=== PATIENT | female | born 1990 | race Caucasian/White ===

== ENCOUNTER 2020-08-23 07:43 | Outpatient (REF) | payer OTHER, SELFPAY ==
[2020-08-23 08:11] LABS: COVID-19 Test Negative (Negative); IDNOW Serial# 55D5AD1C
== END 2020-08-23 07:44 | disposition home or self-care (01) ==
LOC: HO.EMPCOV 07:43
PROVIDERS: Visit Provider Internal Medicine
DX: Z20.822 Contact with and (suspected) exposure to COVID-19 (principal)
CPT/HCPCS: 36415; 87635; C9803

== ENCOUNTER 2020-09-10 07:33 | Outpatient (REF) | payer OTHER, SELFPAY ==
[2020-09-10 08:21] LABS: COVID-19 Test Negative (Negative); IDNOW Serial# 55D5AD1C
== END 2020-09-10 07:34 | disposition home or self-care (01) ==
LOC: HO.LAB 07:33
PROVIDERS: Visit Provider Internal Medicine
DX: Z20.822 Contact with and (suspected) exposure to COVID-19 (principal)
CPT/HCPCS: 36415; 87635; C9803

== ENCOUNTER 2020-12-14 11:59 | Outpatient (REF) | payer OTHER, SELFPAY ==
[2020-12-15 13:51] LABS: H Pylori Breath Test NOT DETECTED (NOT DETECTED)
== END 2020-12-14 12:00 | disposition home or self-care (01) ==
LOC: HO.LNP 11:59
PROVIDERS: Visit Provider Internal Medicine Gastroenterology
DX: Z87.19 Personal history of other diseases of the digestive system (principal)
CPT/HCPCS: 83013

== ENCOUNTER 2020-12-21 12:03 | Outpatient (REF) | payer OTHER, SELFPAY ==
[2020-12-22 14:16] LABS: H Pylori Breath Test NOT DETECTED (NOT DETECTED)
== END 2020-12-21 12:04 | disposition home or self-care (01) ==
LOC: HO.LNP 12:03
PROVIDERS: Visit Provider Internal Medicine Gastroenterology
DX: Z87.19 Personal history of other diseases of the digestive system (principal)
CPT/HCPCS: 83013

== ENCOUNTER 2021-05-02 13:34 | Outpatient (REF) | payer OTHER, SELFPAY | END 2021-05-02 13:35 | disposition home or self-care (01) | LOC: HO.LAB 13:34 | PROVIDERS: PCP Internal Medicine; Visit Provider Internal Medicine Gastroenterology | DX: L20.9 Atopic dermatitis, unspecified (principal); L30.9 Dermatitis, unspecified | CPT/HCPCS: 36415; 82785; 86003 ==

== ENCOUNTER 2021-08-31 07:33 | Outpatient (REF) | payer OTHER, SELFPAY ==
[2021-08-31 08:16] LABS: MANUAL DIFF FLAG NO
[2021-08-31 08:44] LABS: Basophils Percent Auto 0.3 % (0-2); Eosinophils Absolute Auto 0.4 X10*3/uL (0.0-0.4); Eosinophils Percent Auto 4.9 % (0-4); Hematocrit 34.7 % (37.0-47.0); Hemoglobin 11.5 g/dl (12.0-16.0); Imm Gran Abs Auto 0.04 X10*3/uL (0.00-0.03); Imm Gran Pct Auto 0.5 % (0.0-0.4); Lymphocytes Absolute Auto 1.6 X10*3/uL (1.2-4.9); Lymphocytes Percent Auto 20.6 % (20-40); Mean Corpuscular HGB Conc 33.1 g/dl (31.0-35.0); Mean Corpuscular Hemoglobin 28.6 pg (27.0-33.0); Mean Corpuscular Volume 86.3 fL (80.0-98.0); Mean Platelet Volume 9.5 fL (9.4-12.3); Monocytes Absolute Auto 0.5 X10*3/uL (0.1-1.2); Monocytes Percent Auto 6.2 % (2-11); Neutrophils Absolute Auto 5.3 x10*3/uL (2.0-8.3); Neutrophils Percent Auto 67.5 % (45-73); Platelet Count 350 X10*3/uL (160-400); Red Blood Count 4.02 X10*6/uL (4.20-5.50); Red Cell Distribution Width 12.4 % (11.0-16.0); White Blood Count 7.8 X10*3/uL (4.8-10.8)
[2021-08-31 08:54] LABS: Estimated Average Glucose 94 mg/dL; Hemoglobin A1c % 4.9 %
[2021-08-31 09:04] LABS: Alanine Aminotransferase 34 U/L (0-31); Alkaline Phosphatase 64 U/L (39-117); Anion Gap 11 (12-20); Aspartate Amino Transferase 21 U/L (5-31); Bilirubin Total 0.4 mg/dL (0.0-1.0); Blood Urea Nitrogen 10 mg/dL (9-16); C Reactive Protein 0.68 mg/dL (< or = 0.50); Calcium 9.1 mg/dL (8.4-10.2); Carbon Dioxide 26 mmol/L (22-29); Chloride 107 mmol/L (96-108); Cholesterol 124 mg/dL; Estimated Glomerular Filt Rate > 60; Glucose Random 86 mg/dL (60-115); HDL Cholesterol 43 mg/dL; Iron 42 mcg/dL (30-160); LDL Cholesterol Calculated 68 mg/dl; Percent Iron Saturation 12 % (15-50); Potassium 4.5 mmol/L (3.3-5.1); Sodium 139 mmol/L (135-145); Total Iron Binding Capacity 343 mcg/dL (228-428); Triglycerides 69 mg/dL; Unsaturated Iron Binding 301 ug/dL
[2021-08-31 09:25] LABS: Ferritin 17 ng/mL (10-122); TSH reflex Free T4 0.97 uIU/mL (0.32-4.0); Vitamin D 25-OH Total 20.4 ng/mL (>30)
[2021-08-31 09:35] LABS: Folate 11.9 ng/mL (> or = 4.0); Vitamin B12 254 pg/mL (200-900)
[2021-08-31 11:32] LABS: Erythrocyte Sedimentation Rate 12 MM/HR (0-20)
[2021-09-01 14:25] LABS: Gliadin Deamidated IgA Ab <1.0 U/mL; Gliadin Deamidated IgG Ab <1.0 U/mL; Transglutaminase Ab IgG <1.0 U/mL; Transglutaminase IgA <1.0 U/mL
[2021-09-03 14:27] LABS: Zinc 64 mcg/dL (60-130)
[2021-09-03 18:01] LABS: IgA 155 mg/dL (47-310); IgG 1281 mg/dL (600-1640); IgM 50 mg/dL (50-300)
[2021-09-04 11:52] LABS: Vitamin B6 3.6 ng/mL (2.1-21.7)
[2021-09-05 19:02] LABS: Vitamin B5 (Pantothenic Acid) <40 ng/mL (<275)
[2021-09-05 20:02] LABS: Nicotinamide <20 ng/mL; Vit B3 - Nicotinic Acid <20 ng/mL
[2021-09-06 10:52] LABS: Vitamin A 58 mcg/dL (38-98)
== END 2021-08-31 07:34 | disposition home or self-care (01) ==
LOC: HO.LAB 07:33
PROVIDERS: PCP Internal Medicine; Visit Provider Internal Medicine Gastroenterology
DX: G89.29 Other chronic pain (principal); R10.33 Periumbilical pain; R19.8 Other specified symptoms and signs involving the digestive system and abdomen; K75.81 Nonalcoholic steatohepatitis (NASH)
CPT/HCPCS: 36415; 80053; 80061; 82306; 82607; 82728; 82746; 82784; 83036; 83540; 84207; 84443; 84590; 84591; 84630; 85025; 85652; 86140; 86258; 86364

== ENCOUNTER 2021-11-14 07:58 | Outpatient (REF) | payer OTHER, SELFPAY ==
--- NOTE | ~2021-11-14 | US_ITS ---
EXAMINATION: US COMPLETE ABDOMEN WITH LIVER ELASTOGRAPHY CLINICAL INFORMATION: Abdominal pain. COMPARISON: None. TECHNIQUE: Real-time imaging of the abdominal viscera. Noninvasive ultrasound liver fibrosis assessment is performed using Maria Isabel ElastPQ point quantification shear wave elastography (2D-SWE) with a C5-2 MHz transducer. Multiple elastography samples are obtained. FINDINGS: PANCREAS: Not visualized due to bowel gas. ABDOMINAL AORTA: Not well visualized. INFERIOR VENA CAVA: Not well visualized. LIVER: Liver echotexture is increased. The liver is enlarged. No focal liver lesion or biliary duct dilatation. The right lobe measures 22 cm in length. The left lobe measures 17 cm in length. Portal flow is normal/hepatopedal. Shear wave liver elastography median stiffness is 1.9 m/s (reference: normal median stiffness is 1.3 m/s or less). IQR/median stiffness to assess sampling precision is 0.12 (reference: good quality data set is IQR/median stiffness of 0.15 or less). GALLBLADDER: Gallbladder is normal in size. There is question of a small gallstone in the neck of the gallbladder versus artifact. COMMON BILE DUCT: Normal in caliber measuring 0.4 cm in diameter. RIGHT KIDNEY: Normal. No hydronephrosis. No renal calculi or focal parenchymal lesions. The kidney measures 11.4 cm in maximum dimension. LEFT KIDNEY: Normal. No hydronephrosis. No renal calculi or focal parenchymal lesions. The kidney measures 11.6 cm in maximum dimension. SPLEEN: Normal. The spleen measures 12 cm in maximum dimension. FREE FLUID: None. US/US abdomen comp w elastography IMPRESSION: 1. Limited exam. Echogenic liver probably representing fatty infiltration. Nonvisualization of the pancreas, aorta and IVC. Question tiny gallstone in the neck of the gallbladder versus artifact. 2. Liver elastography: Adequate liver sampling. Slightly increased liver stiffness suggestive of of compensated advanced chronic liver disease but need further test for confirmation. REFERENCE: Society of Radiologists in Ultrasound Liver Stiffness Thresholds (2020): LIVER STIFFNESS THRESHOLDS: *Liver Stiffness equal or less than 1.3 m/s: High probability of being normal. *Liver Stiffness less than 1.7 m/s: In the absence of other known clinical signs, rules out compensated advanced chronic liver disease. *Liver Stiffness 1.7-2.1 m/s: Suggestive of compensated advanced chronic liver disease but need further test for confirmation. *Liver Stiffness over 2.1 m/s: Rules in compensated advanced chronic liver disease. *Liver Stiffness over 2.4 m/s: Suggestive of clinically significant portal hypertension. QUALITY OF DATA SET: *IQR/Median value equal or less than 0.15 implies a quality data set. *IQR/Median value over 0.15 implies a poor quality data set. SIGNIFICANT CHANGE FROM PRIOR EXAM: Significant change if liver stiffness measurement is 10% or greater from prior exam. OTHER CONSIDERATIONS: The stage of liver fibrosis may be overestimated in the setting of acute hepatitis, liver inflammation, elevated liver function tests, hepatic vascular congestion, obstructive cholestasis, non-fasting state, and infiltrative diseases such as amyloidosis and lymphoma. In some patients with NAFLD, the liver stiffness thresholds for compensated advanced chronic liver disease may be lower. In causes other than viral hepatitis and NAFLD, liver stiffness thresholds are not well established.
== END 2021-11-14 07:59 | disposition home or self-care (01) ==
LOC: HO.US 07:58
PROVIDERS: Visit Provider Internal Medicine Gastroenterology
DX: R10.9 Unspecified abdominal pain (principal)
CPT/HCPCS: 76705; 76981

== ENCOUNTER → 2023-01-10 13:44 | Outpatient (BNVA) | payer OTHER, SELFPAY | PROVIDERS: PCP Internal Medicine; Visit Provider Physician Assistant Surgical ==

== ENCOUNTER 2023-02-14 15:30 | Outpatient (AMB) | payer OTHER, MEDICAID, SELFPAY ==
[2023-02-14 15:38] VITALS: BP 180/95; PULSE 80; TEMP 36; O2SAT 99; BMI 48.8
--- NOTE | 2023-02-14 15:38 | MHC.OFFVISWM ---
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 She heard about our program as she works in [place]. Her goal is to lose weight and achieve a healthy lifestyle as well as improve obesity related conditions including HTN and EDINSON. She reports first being concerned about her weight over the last 20 years, highest weight to date was 309. Current weight is 302.4 pounds with a BMI of 48.8. She has tried multiple methods of weight loss including fad diets without permanent results. She lives with her and 2 kids. 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 She wakes at:?530 am, and goes to bed at?10 pm. Dinner is at 6 pm. Breakfast: DD sandwich sausage egg and cheese on bagel, coffee w 1 cream and 4 sugars AM snack: candy Lunch: fast food or cafeteria food PM snack: leftover from lunch or chips Dinner: chicken, pork chops, broccolli, potatoe After dinner: crackers, chips Other snacks: cookies, chocolate Liquids: 128 oz of water, 20 oz coke daily, no juice. Alcohol/marijuana/tobacco intake: fireball etoh, 10 nips per weekend, 2 shots 3 days per weekday, smoke cannabis daily, no tobacco Exercise: none, could join [employer] GERD score: 27 BEVERLY score: 7 ESS score: 7 QOL score: 100 Review of Systems Const All systems reviewed & are unremarkable except as noted in HPI and below Physical Exam Vital Signs: Last Vital Signs Temp 96.8 F 02/14/23 15:38 Pulse 80 02/14/23 15:38 BP 180/95 H 02/14/23 15:38 Pulse Ox 99 02/14/23 15:38 Oxygen Delivery Method Room Air 02/14/23 15:38 BMI result Body Mass Index 48.8 Const General: cooperative, healthy appearing and no acute distress Orientation/consciousness: patient oriented x3 HEENT Head: Yes normal to inspection Ears: hearing grossly normal bilaterally General nose exam: Normal external nose present Face and sinus: Yes normal facial exam Eyes General: appearance normal, both eyes and all related structures Resp Effort & Inspection: normal respiratory effort Auscultation: clear to auscultation bilaterally Cardio Rate: regular rate Rhythm: regular rhythm Heart sounds: S1 normal heart sound present and S2 normal heart sound present GI Inspection: Yes normal to inspection, No distended and Yes obesity Palpation (GI): Soft to palpation, nontender and no guarding Auscultation: normal bowel sounds Skin General skin exam: no rashes or lesions noted Neuro General: patient oriented x3 Extrem General: Yes edema (1+ BLE edema) Psych Appearance: grossly normal Mental Status: mental status grossly normal Speech and movement: Normal speech and movement present Affect: normal affect Attitude: cooperative Assessment & Plan Assessment & Plan (1) Morbid obesity: Code(s): E66.01 - Morbid (severe) obesity due to excess calories Plan: This is a?33 yo female who will start our SWL program to prepare for bariatric surgery.? Blood work, h pylori , CXR, ECG, Abd US and UGI have been ordered. She is being scheduled for RD and BH initial consultations. She will start SWL classes and watch the first three videos before her next appointment. ? Adequate sleep of 7-8 hours per night discussed, awakening at 530 am and going to bed at 10 pm ? Purchase body composition analyzer scale (Jeevan smith or Smita recommended) and check weight weekly. The best time to do this is first thing in the morning after going to the bathroom. 1. Nutritional counseling: Be sure to careful read the number of scoops per shake Start with 2 Celebrate Rebuilt shakes ([facility]), (2 scoop in 20 oz low fat unsweetened almond milk) at 630am-830am, [id number] 2 protein bar (Celebrate Protein bars at [facility]) at 1230pm-230pm, and 330pm-530pm. Dinner at 630pm (11 forks of protein and 11 forks of salad/vegetables). Meal to include lean meat (beef, fish, pork, turkey, chicken), cooked vegetables or a salad with olive oil and/or fruits (berries, pears, apples, kiwi). Avoid salt, breads, potatoes, rice, pasta, desserts. Try to drink 64-96 oz of water daily and avoid soda and juices. ?2. Each shake would be drunk slowly, like coffee in a period of 2 hours. ?3. Cut each bar in 4 pieces and eat each piece in 30 min ?to make each bar last 2 hours. ?4. I emphasized the importance of measuring accurately the food portion and measure it carefully when serving the food on the plate ?5. The meal portions include 11 full-size forks of meat and 11 full-size forks of salad. You always eat the meat portion but you can replace up to half of the forks of salad/vegetables with rice, potatoes or pasta, or a fruit ?if you like. The less you do it the better weight loss will be. ?6. One full-size fork is what can be scooped on the fork without falling aside and not what can be bit with the fork. Use regular forks like those you find in a typical restaurant. ?7.? Please send me weight measurements as soon as possible and then once a week. Always include your diet and exercise plan. Alternatively come weekly at the office for weight checks and send me the measurements. ?8. Exercise counseling: Begin by watching a stretching for beginners video. Start slowly and begin to stretch your muscles. You should do this before and after each exercise session to prevent injury. Please join [employer] [facility] gym near your home. Ask the wine manager or one of the trainers how to use the machines if you are unfamiliar with them. Start elliptical with a resistance of 2. Increase resistance by 1 every 3 min to your most comfortable resistance with a max resistance of 8. Reduce the resistance by 1 every 3 minutes back down to 2 and repeat cycles for 300 calories. Alternatively, start treadmill with a speed of 3.0 and incline of 0, increasing incline by 1 every 3 minutes to the highest comfortable level (max 6 for now) then decrease in the same fashion. Repeat process to a goal of 300 calories. Goal of 2000 calories burned or more weekly. You may also consider use of the stationary bike. The easiest would be to chose the fat-burn or interval training program on the machine and do this until you reach the 300 calorie goal. Alternatively, you can manually adjust the resistance in a similar fashion as mentioned above, (resistance of 2-8 with a goal speed of 12 mph). Tracking calories is essential. 9. Alternatively start walking outside daily, tracking calories with a goal of 300 calories per day, daily. You can download the nimco Liqui[employer] which can track your time, distance and calories while walking outside. You press start in the nimco when you start and then stop when you are finished. 10.? It is important to avoid for at least 18 months postoperatively and it has been discussed at the information session 11. Please get labs, EKG and chest X-Ray within 1 week. 12. Discussed and answered all questions regarding?obtained consent to participate in the [facility]?Registry. 13. Please follow the diet plan exactly, without any change. If you do not like something about the plan or you feel hungry, you need to communicate with me so I can help you revise the plan. You should not change the plan yourself. Text me at [phone] 14. Goal is to lose at least 12 pounds in the first month 15. Goal is to lose 10% of your weight before surgery, which is about 30 lbs. Ultimate weight goal: 272 lbs before surgery Patient is morbidly obese and is not considered stable at this time.?I spent a total of 70 minutes reviewing/updating records, examining the patient and counseling the patient on weight management as detailed above. Orders: Orders Lipid Panel Today E66.01 - Morbid (severe) obesity due to excess calories, I10 - Essential (primary) hypertension IRON PROFILE Today E66.01 - Morbid (severe) obesity due to excess calories, I10 - Essential (primary) hypertension Complete Blood Count Auto Diff Today E66.01 - Morbid (severe) obesity due to excess calories, I10 - Essential (primary) hypertension Zinc Today E66.01 - Morbid (severe) obesity due to excess calories, I10 - Essential (primary) hypertension TSH reflex Free T4 Today E66.01 - Morbid (severe) obesity due to excess calories, I10 - Essential (primary) hypertension Vitamin D 25-OH Total Today E66.01 - Morbid (severe) obesity due to excess calories, I10 - Essential (primary) hypertension US abdomen comp w elastography Today E66.01 - Morbid (severe) obesity due to excess calories, I10 - Essential (primary) hypertension XR chest 2V Today E66.01 - Morbid (severe) obesity due to excess calories, I10 - Essential (primary) hypertension ECG 12 lead EKG Today E66.01 - Morbid (severe) obesity due to excess calories, I10 - Essential (primary) hypertension FL upper GI w air Today E66.01 - Morbid (severe) obesity due to excess calories, I10 - Essential (primary) hypertension Insulin Today E66.01 - Morbid (severe) obesity due to excess calories, I10 - Essential (primary) hypertension Vitamin B12 and Folate Today E66.01 - Morbid (severe) obesity due to excess calories, I10 - Essential (primary) hypertension Comprehensive Met. Panel Today E66.01 - Morbid (severe) obesity due to excess calories, I10 - Essential (primary) hypertension Vitamin B1 Today E66.01 - Morbid (severe) obesity due to excess calories, I10 - Essential (primary) hypertension Vitamin A Today E66.01 - Morbid (severe) obesity due to excess calories, I10 - Essential (primary) hypertension C Reactive Protein Today E66.01 - Morbid (severe) obesity due to excess calories, I10 - Essential (primary) hypertension Ferritin Today E66.01 - Morbid (severe) obesity due to excess calories, I10 - Essential (primary) hypertension PTHI Today E66.01 - Morbid (severe) obesity due to excess calories, I10 - Essential (primary) hypertension H Pylori Breath Test Today E66.01 - Morbid (severe) obesity due to excess calories, I10 - Essential (primary) hypertension Hemoglobin A1c Today E66.01 - Morbid (severe) obesity due to excess calories, I10 - Essential (primary) hypertension Referrals Behavioral Health Referral E66.01 - Morbid (severe) obesity due to excess calories, I10 - Essential (primary) hypertension Nutrition/Dietitian Referral E66.01 - Morbid (severe) obesity due to excess calories, I10 - Essential (primary) hypertension Coding Level of Care Code New Pt Level 5 (69661) Diagnoses Morbid obesity E66.01 Time Spent (min) 70
== END 2023-02-14 17:15 | disposition home or self-care (01) ==
PROVIDERS: PCP Internal Medicine; Visit Provider Physician Assistant Surgical
DX: E66.01 Morbid (severe) obesity due to excess calories (principal); Z68.42 Body mass index [BMI] 45.0-49.9, adult
CPT/HCPCS: 99205

== ENCOUNTER → 2023-02-14 15:30 | Outpatient (BNVA) | payer OTHER, MEDICARE, MEDICAID, SELFPAY | PROVIDERS: PCP Internal Medicine; Visit Provider Physician Assistant Surgical ==

== ENCOUNTER 2023-02-15 07:50 | Outpatient (REF) | payer OTHER, SELFPAY ==
[2023-02-15 08:05] LABS: MANUAL DIFF FLAG NO
[2023-02-15 08:47] LABS: Basophils Percent Auto 0.5 % (0-2); Eosinophils Absolute Auto 0.2 X10*3/uL (0.0-0.4); Eosinophils Percent Auto 2.8 % (0-4); Hemoglobin 12.7 g/dl (12.0-16.0); Imm Gran Abs Auto 0.05 X10*3/uL (0.00-0.03); Imm Gran Pct Auto 0.6 % (0.0-0.4); Lymphocytes Absolute Auto 1.6 X10*3/uL (1.2-4.9); Lymphocytes Percent Auto 19.7 % (20-40); Mean Corpuscular HGB Conc 34.3 g/dl (31.0-35.0); Mean Corpuscular Hemoglobin 29.3 pg (27.0-33.0); Mean Corpuscular Volume 85.3 fL (80.0-98.0); Mean Platelet Volume 10.3 fL (9.4-12.3); Monocytes Absolute Auto 0.5 X10*3/uL (0.1-1.2); Monocytes Percent Auto 5.4 % (2-11); Neutrophils Absolute Auto 5.9 x10*3/uL (2.0-8.3); Platelet Count 328 X10*3/uL (160-400); Red Blood Count 4.34 X10*6/uL (4.20-5.50); White Blood Count 8.3 X10*3/uL (4.8-10.8)
[2023-02-15 08:58] LABS: Estimated Average Glucose 94 mg/dL; Hemoglobin A1c % 4.9 % (<6.0)
[2023-02-15 09:59] LABS: Alanine Aminotransferase 23 U/L (0-31); Albumin Level 3.9 g/dL (3.5-5.0); Alkaline Phosphatase 67 U/L (39-117); Anion Gap 12 (12-20); Aspartate Amino Transferase 19 U/L (5-31); Bilirubin Total 0.5 mg/dL (0.0-1.0); Blood Urea Nitrogen 11 mg/dL (9-16); C Reactive Protein 0.82 mg/dL (< or = 0.50); Calcium 8.7 mg/dL (8.4-10.2); Carbon Dioxide 24 mmol/L (22-29); Chloride 107 mmol/L (96-108); Cholesterol 126 mg/dL (<200); Estimated Glomerular Filt Rate > 60; Glucose Random 93 mg/dL (60-115); HDL Cholesterol 39 mg/dL (>40); Iron 72 mcg/dL (30-160); LDL Cholesterol Calculated 68 mg/dL (<100); Percent Iron Saturation 27 % (15-50); Sodium 139 mmol/L (135-145); Total Iron Binding Capacity 269 mcg/dL (228-428); Total Protein 6.9 g/dL (6.5-8.0); Triglycerides 96 mg/dL (<150); Unsaturated Iron Binding 197 ug/dL
[2023-02-15 10:06] LABS: Ferritin 31 ng/mL (10-122); Insulin 18 uU/mL (2-29); TSH reflex Free T4 1.18 uIU/mL (0.32-4.0); Vitamin D 25-OH Total 35.4 ng/mL (>30)
[2023-02-15 10:30] LABS: Folate 7.4 ng/mL (> or = 4.0); Vitamin B12 245 pg/mL (200-900)
[2023-02-19 13:59] LABS: Calcium (PTHI) 8.8 mg/dL (8.6-10.2); PTHI 114 pg/mL (16-77)
[2023-02-20 02:09] LABS: Zinc 59 mcg/dL (60-130)
[2023-02-20 15:33] LABS: Vitamin B1 20 nmol/L (8-30)
[2023-02-22 21:23] LABS: Vitamin A 35 mcg/dL (38-98)
== END 2023-02-15 07:51 | disposition home or self-care (01) ==
LOC: HO.LAB 07:50
PROVIDERS: PCP Internal Medicine; Visit Provider Physician Assistant Surgical
DX: E66.01 Morbid (severe) obesity due to excess calories (principal); I10 Essential (primary) hypertension
CPT/HCPCS: 36415; 80053; 80061; 82306; 82607; 82728; 82746; 83036; 83525; 83540; 83970; 84425; 84443; 84590; 84630; 85025; 86140

== ENCOUNTER → 2023-02-28 14:22 | Outpatient (BNVA) | payer OTHER, SELFPAY | PROVIDERS: PCP Internal Medicine; Referring Provider Physician Assistant Surgical; Visit Provider Dietitian, Registered | DX: E66.9 Obesity, unspecified (principal); Z71.3 Dietary counseling and surveillance | CPT/HCPCS: 97802 ==

== ENCOUNTER 2023-03-01 09:35 | Outpatient (REF) | payer OTHER, SELFPAY ==
--- NOTE | ~2023-03-01 | XR_ITS ---
EXAMINATION: XR CHEST CLINICAL INFORMATION: Obesity COMPARISON: None available. TECHNIQUE: 2 views of the chest were obtained. FINDINGS: No significant abnormality is noted involving the heart, lungs, mediastinum, bony thorax or soft tissues. XR/XR chest 2V IMPRESSION: Unremarkable examination.
--- NOTE | 2023-03-01 14:02 | ECG_ITS ---
Test Reason : E66.01 - Morbid (severe) obesity due to excess calories Blood Pressure : / mmHG Vent. Rate : 092 BPM Atrial Rate : 092 BPM P-R Int : 174 ms QRS Dur : 104 ms QT Int : 364 ms P-R-T Axes : 065 039 058 degrees QTc Int : 450 ms Normal sinus rhythm with sinus arrhythmia Normal ECG No previous ECGs available Referred By: Jw Summers Electronically Signed By:CHRISTIN GIRALDO
[2023-03-02 15:44] LABS: H Pylori Breath Test Negative (Negative)
== END 2023-03-01 09:36 | disposition home or self-care (01) ==
LOC: HO.XRAY 09:35
PROVIDERS: PCP Internal Medicine; Visit Provider Physician Assistant Surgical
DX: Z11.2 Encounter for screening for other bacterial diseases (principal); E66.01 Morbid (severe) obesity due to excess calories; I10 Essential (primary) hypertension
CPT/HCPCS: 71046; 83013; 93005

== ENCOUNTER 2023-03-13 15:54 | Outpatient (AMB) | payer OTHER, MEDICAID, SELFPAY ==
--- NOTE | 2023-03-13 15:55 | MHC.OFFVISWM ---
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 Allergies No Known Allergies Allergy (Verified 03/13/23 16:02) Medication List - Last Reconciled 03/13/23 by RENETTA Oliver chlorthalidone 25 mg PO DAILY cyanocobalamin (vitamin B-12) 500 mcg PO DAILY 90 days fluoxetine 70 mg PO DAILY lidocaine HCl 2% (Lidocaine Viscous) 1 appl mucous membrane TID PRN lisinopril 30 mg PO DAILY mometasone 0.1% 1 appl topical DAILY pantoprazole 40 mg PO DAILY vitamin A 3,000 mcg PO DAILY 90 days zinc gluconate 30 mg PO DAILY HPI HPI Comments History of Present Illness Details The patient is a pleasant 33 year old female who returns to the clinic for pre-operative surgical weight loss management. They were last seen in the office on 02/14/23, recorded weight at that time was 302.4 pounds, with a BMI of 48.8. Today's weight is 279.2 pounds and BMI is 45.1. There has been a weight loss of 23.2 pounds since initiating the surgical weight loss program on 02/14/23 with a total body weight loss of 7.67 %. Pre op work up completed as follows: SWL classes:? 11/09 BH appts: 03/22/23 ? ? RD appts: f/u 04/02/23 Labs: 02/15/23-low A, Zinc, B12:245 H. pylori: 03/01/23-neg CXR: 03/01/23-nad EK03/01/23-normal ABD U/S: 03/26/23 UGI: 03/26/23 The patient reports she is doing well and following the meal plan. Only doing one bar 4 of 7 days and no bar at all on the other days. If meal is at lunch, then doing a shake at dinner. There was some confusion on her part and Current meal plan includes: 2 Celebrate Rebuild shakes ([facility] [place] [place] [employer]), (2 scoop in 20 oz low fat unsweetened almond milk) at 630am-830am, and 930am-1130pm 2 protein bar (Celebrate Protein bars at [facility] [place] [place] [employer]) at 1230pm-230pm, and 330pm-530pm. Dinner at 630pm (11 forks of protein and 11 forks of salad/vegetables). Drinking 64-96 oz of water Current exercise plan includes: walking, 2 days per week. [facility] Medical History (Updated 03/13/23 @ 16:02 by Peggy Veloz CMA) Delivery with history of Surgical History (Updated 03/13/23 @ 16:02 by Peggy Veloz CMA) Hx of wisdom tooth extraction Family History (Updated 03/13/23 @ 16:04 by Peggy Veloz CMA) Mother Hypertension Bipolar 1 disorder Heart murmur Father Bipolar 1 disorder Hypertension Lung cancer Alcohol abuse Son No problems noted. Daughter No problems noted. Social History Alcohol intake: former Patient Tobacco Use Status: Never used Tobacco Physical Exam Const General: healthy appearing and no acute distress Resp Effort & Inspection: normal respiratory effort Auscultation: clear to auscultation bilaterally Cardio Rate: regular rate Rhythm: regular rhythm GI Auscultation: normal bowel sounds Extrem General: Yes normal to inspection Assessment & Plan Assessment & Plan (1) Morbid obesity: Code(s): E66.01 - Morbid (severe) obesity due to excess calories Plan: change meal plan: 2 Celebrate Rebuild shakes ([employer]), (2 scoop in 20 oz low fat unsweetened almond milk) at 630am-830am, and 930am-1130pm 2 protein bar (Celebrate Protein bars at [employer]) at 1230pm-230pm, and 330pm-530pm. Dinner at 630pm (10 forks of protein and 10 forks of salad/vegetables). Text with any issues Reminded of upcoming appts increase exercise to 300 blas daily rtc 3 weeks Coding Level of Care Code Est Pt Level 3 (65182) Diagnoses Morbid obesity E66.01
[2023-03-13 15:58] VITALS: BP 135/78; PULSE 92; TEMP 36.1; O2SAT 99; BMI 45.1
== END 2023-03-13 16:32 | disposition home or self-care (01) ==
PROVIDERS: PCP Internal Medicine; Visit Provider Physician Assistant Surgical
DX: E66.01 Morbid (severe) obesity due to excess calories (principal)
CPT/HCPCS: 99213

== ENCOUNTER → 2023-03-13 15:54 | Outpatient (BNVA) | payer OTHER, MEDICAID, SELFPAY | PROVIDERS: PCP Internal Medicine; Visit Provider Physician Assistant Surgical ==

== ENCOUNTER 2023-03-26 07:34 | Outpatient (REF) | payer OTHER, SELFPAY ==
--- NOTE | ~2023-03-26 | US_ITS ---
EXAMINATION: US COMPLETE ABDOMEN WITH LIVER ELASTOGRAPHY CLINICAL INFORMATION: Morbid obesity. COMPARISON: Abdominal ultrasound dated 11/14/2021. TECHNIQUE: Real-time imaging of the abdominal viscera. Noninvasive ultrasound liver fibrosis assessment is performed using Maria Isabel ElastPQ point quantification shear wave elastography (2D-SWE) with a C5-2 MHz transducer. Multiple elastography samples are obtained. FINDINGS: PANCREAS: Normal. The visualized pancreatic head and body are normal in appearance. The remainder of the pancreas is obscured from visualization by the overlying bowel gas. ABDOMINAL AORTA: The proximal, middle, and distal aortic segments are normal in caliber. INFERIOR VENA CAVA: Visualized portions are normal. LIVER: The liver demonstrates normal size, contour and increased echogenicity. No focal lesion or intrahepatic biliary duct dilatation. The right lobe measures 18.9 cm in length. The left lobe measures 13.4 cm in length. Portal flow is towards the liver (hepatopetal). Shear wave liver elastography median stiffness is 1.59 m/s (reference: normal median stiffness is 1.3 m/s or less). IQR/median stiffness to assess sampling precision is 0.13 (reference: good quality data set is IQR/median stiffness of 0.15 or less). GALLBLADDER: Normal. The gallbladder is physiologically distended without evidence of stones, sludge, polyps, wall thickening or pericholecystic fluid. COMMON BILE DUCT: Normal in caliber measuring 0.4 cm in diameter. RIGHT KIDNEY: Normal. No hydronephrosis. No renal calculi or focal parenchymal lesions. The kidney measures 10.2 cm in maximum dimension. LEFT KIDNEY: Normal. No hydronephrosis. No renal calculi or focal parenchymal lesions. The kidney measures 10.4 cm in maximum dimension. SPLEEN: Normal. The spleen measures 11.6 cm in maximum dimension. FREE FLUID: None. US/US abdomen comp w elastography IMPRESSION: 1. There is generalized increase in hepatic echotexture, consistent with fatty infiltration or hepatocellular disease. Please correlate clinically. No focal hepatic mass or intrahepatic biliary dilatation is seen. 2. Liver elastography: In the absence of other known clinical signs, measurements rule out compensated advanced chronic liver disease. If there are known clinical signs, further testing may be needed for confirmation. When compared with prior exam, there is a statistically significant decrease in liver stiffness (decrease at least 10%). REFERENCE: Society of Radiologists in Ultrasound Liver Stiffness Thresholds (2020): LIVER STIFFNESS THRESHOLDS: *Liver Stiffness equal or less than 1.3 m/s: High probability of being normal. *Liver Stiffness less than 1.7 m/s: In the absence of other known clinical signs, rules out compensated advanced chronic liver disease. *Liver Stiffness 1.7-2.1 m/s: Suggestive of compensated advanced chronic liver disease but need further test for confirmation. *Liver Stiffness over 2.1 m/s: Rules in compensated advanced chronic liver disease. *Liver Stiffness over 2.4 m/s: Suggestive of clinically significant portal hypertension. QUALITY OF DATA SET: *IQR/Median value equal or less than 0.15 implies a quality data set. *IQR/Median value over 0.15 implies a poor quality data set. SIGNIFICANT CHANGE FROM PRIOR EXAM: Significant change if liver stiffness measurement is 10% or greater from prior exam. OTHER CONSIDERATIONS: The stage of liver fibrosis may be overestimated in the setting of acute hepatitis, liver inflammation, elevated liver function tests, hepatic vascular congestion, obstructive cholestasis, non-fasting state, and infiltrative diseases such as amyloidosis and lymphoma. In some patients with NAFLD, the liver stiffness thresholds for compensated advanced chronic liver disease may be lower. In causes other than viral hepatitis and NAFLD, liver stiffness thresholds are not well established.
--- NOTE | ~2023-03-26 | FL_ITS ---
EXAMINATION: XR FLUOROSCOPY UPPER GI WITH AIR CLINICAL INFORMATION: Morbid to severe obesity due to excess calories COMPARISON: None available. TECHNIQUE: Routine upper GI air-contrast study was performed due to excess calories. FINDINGS: Following oral administration of thick barium and effervescent granules is normal propagation of bolus from old oral cavity through the pharynx, esophagus into stomach without any evidence of obstruction, narrowing or stricture. On placing patient supine and prone lying the course, caliber and peristalsis of the stomach, duodenal bulb and sweep is normal. FLUOROSCOPY TIME: 1 minute 42 seconds DOSE AREA PRODUCT: 5097 uGy-m2 (microgray-meter squared) FL/FL upper GI w air IMPRESSION: Unremarkable upper GI exam.
== END 2023-03-26 07:35 | disposition home or self-care (01) ==
LOC: HO.US 07:34
PROVIDERS: PCP Internal Medicine; Visit Provider Physician Assistant Surgical
DX: E66.01 Morbid (severe) obesity due to excess calories (principal); I10 Essential (primary) hypertension
CPT/HCPCS: 74246; 76705; 76981

== ENCOUNTER → 2023-03-26 07:35 | Outpatient (BNV) | payer OTHER, SELFPAY | PROVIDERS: PCP Internal Medicine; Visit Provider Radiology Diagnostic Radiology | DX: E66.01 Morbid (severe) obesity due to excess calories (principal); Z01.818 Encounter for other preprocedural examination | CPT/HCPCS: 74246 ==

== ENCOUNTER 2023-04-02 15:25 | Outpatient (AMB) | payer OTHER, MEDICAID, SELFPAY ==
--- NOTE | 2023-04-02 15:30 | A.OFFVIS_ITS ---
Intake VS Expanded 04/02/23 15:34 BP 130/76 Blood Pressure Location Lt brachial Blood Pressure Position Sitting Pulse 80 Pulse Source Pulse Oximeter Pulse Oximetry 99 Oxygen Delivery Method Room Air Height 5 ft 6 in Weight 273 lb 6.4 oz BMI 44.1 Body Fat % 48.5 Body Fat Mass 132.8 Fat Free Mass 140.6 Visceral Fat Rating 13.0 Body Water % 36.9 Body Water Mass 101.0 Muscle Mass/Score 133.6 Basal Metabolic Rate/Score 2,036 Intake Visit Reasons: (OV) F/U SWL Intake Note: Patient is seen in office for follow up visit, following surgical weight loss. Information Security Risk Analyst Required: No Accompanied by: Self / Same As Patient Allergies No Known Allergies Allergy (Verified 04/02/23 15:38) Medication List - Last Reconciled 04/02/23 by RENETTA Oliver chlorthalidone 25 mg PO DAILY cyanocobalamin (vitamin B-12) 500 mcg PO DAILY 90 days fluoxetine 70 mg PO DAILY lidocaine HCl 2% (Lidocaine Viscous) 1 appl mucous membrane TID PRN lisinopril 30 mg PO DAILY mometasone 0.1% 1 appl topical DAILY pantoprazole 40 mg PO DAILY vitamin A 3,000 mcg PO DAILY 90 days zinc gluconate 30 mg PO DAILY HPI HPI Comments History of Present Illness Details The patient is a pleasant 33 year old female who returns to the clinic for pre-operative surgical weight loss management. They were last seen in the office on 03/13/23, recorded weight at that time was 279.2 pounds, with a BMI of 45.1. Today's weight is 273.4 pounds and BMI is 44.1. There has been a weight loss of 29 pounds since initiating the surgical weight loss program on 02/14/23 with a total body weight loss of 9.5 %. Has [employer] body composition scale at home. Pre op work up completed as follows: SWL classes:? 11/09 BH appts: 04/19/23 ? ? RD appts: f/u 04/17/23 Labs: 02/15/23-low A, Zinc, B12:245 H. pylori: 03/01/23-neg CXR: 03/01/23-nad EK03/01/23-normal ABD U/S: 03/26/23-fatty liver UGI: 03/26/23-normal The patient reports she is doing well and following the meal plan. She feels as though the protein shake is filling Current meal plan includes: 2 Celebrate Rebuild shakes ([facility] [employer] p), (2 scoop in 20 oz low fat unsweetened almond milk) at 630am-830am, and 930am-1130pm 2 protein bar (Celebrate Protein bars at [facility] [employer]) at 1230pm-230pm, and 330pm-530pm. Dinner at 630pm (10 forks of protein and 10 forks of salad/vegetables). Drinking 64-96 oz of water Current exercise plan includes: walking, 3-4 days per week. [facility] Medical History (Updated 03/13/23 @ 16:02 by Peggy Veloz CMA) Delivery with history of Surgical History Hx of wisdom tooth extraction Family History Mother Hypertension Bipolar 1 disorder Heart murmur Father Bipolar 1 disorder Hypertension Lung cancer Alcohol abuse Son No problems noted. Daughter No problems noted. Social History (Updated 03/13/23 @ 16:03 by Peggy Veloz CMA) Alcohol intake: former Patient Tobacco Use Status: Never used Tobacco Physical Exam Const General: healthy appearing and no acute distress Resp Effort & Inspection: normal respiratory effort Auscultation: clear to auscultation bilaterally Cardio Rate: regular rate Rhythm: regular rhythm GI Auscultation: normal bowel sounds Extrem General: Yes normal to inspection Assessment & Plan Assessment & Plan (1) Morbid obesity: Code(s): E66.01 - Morbid (severe) obesity due to excess calories Plan: Overall, she is doing very well. She does wish to reduce the meal plan by 1 bar and has a slightly different schedule on the weekends. Work days: Shake 630-830, celebrate rebuild, 2 scoops in 20 oz of almond milk. Meal, noon, 10 forks of protein and 10 for sub edge doubles. Bar, celebrate protein bar 14:00 to 16:00 Shake as above, 17:30. Weekends: Shake as above 630-830. Shake as above tend noon Bar 2-4 Meal 18:00. Encouraged to go to the gym at [facility] as she is an employee here and utilized the cardio equipment with a goal of obtaining 300 calorie burned 5 days a week while at work and continuing her outdoor walking at [employer] on the weekends with her friend, maintaining a goal of at least 300 calories. Return to the office in 3 weeks. Coding Level of Care Code Est Pt Level 3 (59281) Diagnoses Morbid obesity E66.01
[2023-04-02 15:34] VITALS: BP 130/76; PULSE 80; O2SAT 99; BMI 44.1
== END 2023-04-02 16:22 | disposition home or self-care (01) ==
PROVIDERS: PCP Internal Medicine; Visit Provider Physician Assistant Surgical
DX: E66.01 Morbid (severe) obesity due to excess calories (principal)
CPT/HCPCS: 99213

== ENCOUNTER → 2023-04-02 15:25 | Outpatient (BNVA) | payer OTHER, MEDICAID, SELFPAY | PROVIDERS: PCP Internal Medicine; Visit Provider Physician Assistant Surgical ==

== ENCOUNTER 2023-04-19 13:00 | Outpatient (AMB) | payer OTHER, MEDICAID, SELFPAY ==
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
== END 2023-04-19 14:00 | disposition home or self-care (01) ==
LOC: HO.HBST 13:26
PROVIDERS: PCP Internal Medicine; Visit Provider Counselor Mental Health
DX: F41.9 Anxiety disorder, unspecified (principal)
CPT/HCPCS: 90791

== ENCOUNTER → 2023-04-19 13:00 | Outpatient (BNVA) | payer OTHER, MEDICAID, SELFPAY | PROVIDERS: PCP Internal Medicine; Visit Provider Counselor Mental Health ==

== ENCOUNTER 2023-04-25 14:49 | Outpatient (AMB) | payer OTHER, MEDICAID, SELFPAY ==
[2023-04-25 15:00] VITALS: BP 137/78; PULSE 88; TEMP 35.5; O2SAT 97; BMI 43.6
--- NOTE | 2023-04-25 15:00 | A.OFFVIS_ITS ---
Intake VS Expanded 04/25/23 15:00 BP 137/78 Blood Pressure Location Rt brachial Blood Pressure Position Sitting Pulse 88 Pulse Source Pulse Oximeter Temp 96 F L Temperature Source Temporal Artery Scan Pulse Oximetry 97 Oxygen Delivery Method Room Air Height 5 ft 6 in Weight 270 lb BMI 43.6 Body Fat % 46.6 Body Fat Mass 125.6 Fat Free Mass 144.2 Visceral Fat Rating 13.0 Body Water % 38.4 Body Water Mass 103.6 Muscle Mass/Score 137.0 Basal Metabolic Rate/Score 2,071 Intake Visit Reasons: (OV) F/U SWL Allergies No Known Allergies Allergy (Verified 04/02/23 15:38) HPI HPI Comments History of Present Illness Details The patient is a pleasant 33 year old female who returns to the clinic for pre-operative surgical weight loss management. They were last seen in the office on 04/02/23, recorded weight at that time was 273.4 pounds, with a BMI of 44.1. Today's weight is 270 pounds and BMI is 43.6. There has been a weight loss of 32.4 pounds since initiating the surgical weight loss program on 02/14/23 with a total body weight loss of 10.7 %. Pre op work up completed as follows: SWL classes:? []/8 BH appts: cleared-04/19/23 ? ? RD appts: 05/08/23 Labs: 02/15/23-low A, Zinc, B12:245 H. pylori: 03/01/23-neg CXR: 03/01/23-nad EK03/01/23-normal ABD U/S: 03/26/23-fatty liver UGI: 03/26/23-normal The patient reports she is following the meal plan. She would like to change her shake time in the morning from start of 630-730 am The patient does have a body composition scale. They also have been communicating weekly. Current meal plan includes: Work days: Shake 630-830, celebrate rebuild, 2 scoops in 20 oz of almond milk. Meal, noon, 10 forks of protein and 10 forks veg. Bar, celebrate protein bar 14:00 to 16:00 Shake as above, 17:30. Weekends: Shake as above 630-830. Shake as above at noon Bar 2-4 Meal 18:00. Drinking 96 oz of water Current exercise plan includes: walking, tracking calories on her watch, approx 300 caloires, 3 x per week but tries for more, last week had covid. Planning to join [facility] or [facility] Medical History (Updated 03/13/23 @ 16:02 by Peggy Veloz CMA) Delivery with history of Surgical History Hx of wisdom tooth extraction Family History Mother Hypertension Bipolar 1 disorder Heart murmur Father Bipolar 1 disorder Hypertension Lung cancer Alcohol abuse Son No problems noted. Daughter No problems noted. Alcohol intake: former Patient Tobacco Use Status: Never used Tobacco Physical Exam Vital Signs: Last Vital Signs Temp 96 F L 04/25/23 15:00 Pulse 88 04/25/23 15:00 BP 137/78 04/25/23 15:00 Pulse Ox 97 04/25/23 15:00 Oxygen Delivery Method Room Air 04/25/23 15:00 BMI result Body Mass Index 43.6 Const General: healthy appearing and no acute distress Resp Effort & Inspection: normal respiratory effort Auscultation: clear to auscultation bilaterally Cardio Rate: regular rate Rhythm: regular rhythm GI Auscultation: normal bowel sounds Extrem General: Yes normal to inspection Assessment & Plan Assessment & Plan (1) Morbid obesity: Code(s): E66.01 - Morbid (severe) obesity due to excess calories Plan: Making excellent progress. Follow-up with registered dietitian on 05/08/2023. Continue current meal plan. She has joining [employer] to be able to do a more structured exercise program. Refer to Dr. Rodriguez for further preoperative planning. Patient continues to communicate weekly and has done very well in the program so far. Coding Level of Care Code Est Pt Level 3 (38857) Diagnoses Morbid obesity E66.01
== END 2023-04-25 16:19 | disposition home or self-care (01) ==
PROVIDERS: PCP Internal Medicine; Visit Provider Physician Assistant Surgical
DX: E66.01 Morbid (severe) obesity due to excess calories (principal)
CPT/HCPCS: 99213

== ENCOUNTER → 2023-04-25 14:49 | Outpatient (BNVA) | payer OTHER, MEDICAID, SELFPAY | PROVIDERS: PCP Internal Medicine; Visit Provider Physician Assistant Surgical ==

== ENCOUNTER → 2023-05-01 15:19 | Outpatient (BNVA) | payer OTHER, MEDICAID, SELFPAY | PROVIDERS: PCP Internal Medicine; Visit Provider Physician Assistant Surgical ==

== ENCOUNTER → 2023-05-30 08:01 | Outpatient (BNVA) | payer OTHER, MEDICAID, SELFPAY | PROVIDERS: PCP Internal Medicine; Visit Provider Physician Assistant Surgical ==

== ENCOUNTER 2023-05-30 09:31 | Outpatient (AMB) | payer OTHER, MEDICAID, SELFPAY ==
--- NOTE | 2023-05-30 10:21 | A.OFFVIS_ITS ---
Intake Intake Visit Reasons: TV Consult/Transfer Jw Allergies No Known Allergies Allergy (Verified 05/30/23 10:21) Medication List - Last Reconciled 05/30/23 by Sharad Rodriguez MD chlorthalidone 25 mg PO DAILY cyanocobalamin (vitamin B-12) 500 mcg PO DAILY 90 days fluoxetine 70 mg PO DAILY lidocaine HCl 2% (Lidocaine Viscous) 1 appl mucous membrane TID PRN lisinopril 30 mg PO DAILY mometasone 0.1% 1 appl topical DAILY pantoprazole 40 mg PO DAILY vitamin A 3,000 mcg PO DAILY 90 days zinc gluconate 30 mg PO DAILY HPI TV Consult/Transfer Jw HPI Details Start time: 10.04am, End time: 10.49am ?I spent 40 minutes speaking with the patient on the phone plus an additional 5 minutes reviewing and updating records for a total of 45 minutes HPI Comments History of Present Illness Details Overall weight loss: 43.4lbs, or 14.35% TBWL Is doing 2 Celebrate Rebuild protein shakes (2 scoops in 20oz low fat milk), 1 Celebrate protein bar and a meal (11 forks of meat and 11 forks of salad or vegetables) Exercise: Gym x4 days per week doing treadmill for 160-200 calories and weight exercises PFSH Medical History (Updated 03/13/23 @ 16:02 by Peggy Veloz CMA) Delivery with history of Surgical History Hx of wisdom tooth extraction Family History Mother Hypertension Bipolar 1 disorder Heart murmur Father Bipolar 1 disorder Hypertension Lung cancer Alcohol abuse Son No problems noted. Daughter No problems noted. Social History Alcohol intake: former Patient Tobacco Use Status: Never used Tobacco Assessment & Plan Assessment & Plan (1) Morbid obesity: Code(s): E66.01 - Morbid (severe) obesity due to excess calories Plan: 1. Plan for lap sleeve gastrectomy including upper GI endoscopy. All tests has been completed and reviewed and the patient is cleared for the surgery. ?If diaphragmatic or ventral hernias are present at time of surgery, these will be repaired laparoscopically as well. Risks and complications were discussed in detail including possible conversion to an open procedure, anastomotic leak, bleeding requiring transfusion, small bowel obstruction, , DVT and pulmonary embolism, cardiac, or pulmonary complications, as nursing home complications such as anastomotic ulcer, insufficient weight loss and vitamin deficiencies. I emphasized the importance of close follow-up, adherence to instructions and good communication. So far she has proven to be an excellent communicator and very compliant with all our directions accomplishing a great weight loss. I believe that she is an excellent candidate and she is ready. 2. Change nutritional plan to 2 Celebrate Rebuild protein shakes (ONE scoop EACH in 10oz low fat milk), 1 Celebrate protein bar and a meal (11 forks of meat and 11 forks of salad or vegetables) 3. Please let me know if you experience more hunger 4. Start treadmill with an incline of 4.0 and speed of 3.0. Increase incline by 1 every 3 min to a max incline of 10.0, stay 3min at 10.0 and then return to 4.0 and repeat same steps until calorie goal is met. Goal is to burn 2000 calories per week on exercise, which means either 300 calories daily, or 400 calories 5 days per week, or 500 calories 4 days per week, or 650 calories 3 days per week. 5. Send me weight measurements weekly on Wednesdays Telehealth Telehealth Location of provider rendering services: practice address Location of patient: address on file Patient Identification confirmed using: Name, : Yes Telehealth method: voice only Patient verbally consented to treatment: Yes Patient verbally consented to billing insurance company: Yes Patient informed of any privacy concerns related to visit: Yes Minutes spent on Phone/Video with Pt.: 45 Coding Level of Care Code Tele Est Pt Level 5 (58194) Diagnoses Morbid obesity E66.01 Time Spent (min) 45
== END 2023-05-30 10:50 | disposition home or self-care (01) ==
LOC: HO.HBS 09:31
PROVIDERS: PCP Internal Medicine; Visit Provider Surgery
DX: E66.01 Morbid (severe) obesity due to excess calories (principal); Z68.41 Body mass index [BMI] 40.0-44.9, adult
CPT/HCPCS: 99215

== ENCOUNTER → 2023-06-06 08:07 | Outpatient (BNVA) | payer OTHER, MEDICAID, SELFPAY | PROVIDERS: PCP Internal Medicine; Visit Provider Surgery ==

== ENCOUNTER → 2023-06-13 07:51 | Outpatient (BNVA) | payer OTHER, MEDICAID, SELFPAY | PROVIDERS: PCP Internal Medicine; Visit Provider Surgery ==

== ENCOUNTER → 2023-06-20 07:47 | Outpatient (BNVA) | payer OTHER, MEDICAID, SELFPAY | PROVIDERS: PCP Internal Medicine; Visit Provider Surgery ==

== ENCOUNTER → 2023-06-27 07:51 | Outpatient (BNVA) | payer OTHER, MEDICAID, SELFPAY | PROVIDERS: PCP Internal Medicine; Visit Provider Surgery ==

== ENCOUNTER 2023-06-29 08:10 | Outpatient (AMB) | payer OTHER, SELFPAY ==
--- NOTE | 2023-06-29 08:13 | A.OFFVIS_ITS ---
Intake VS Expanded 06/29/23 08:25 Height 5 ft 6 in Weight 253 lb 6 oz BMI 40.9 Body Fat % 43.5 Body Fat Mass 110.2 Fat Free Mass 143.4 Visceral Fat Rating 11 Body Water % 40.5 Body Water Mass 102.8 Basal Metabolic Rate/Score 2,033 Intake Visit Reasons: TV Pre Op LSG 07/12/23 Allergies No Known Allergies Allergy (Verified 06/29/23 08:13) Medication List - Last Reconciled 06/29/23 by Sharad Rodriguez MD cyanocobalamin (vitamin B-12) 500 mcg PO DAILY 90 days fluoxetine 70 mg PO DAILY lidocaine HCl 2% (Lidocaine Viscous) 1 appl mucous membrane TID PRN lisinopril 30 mg PO DAILY mometasone 0.1% 1 appl topical DAILY ondansetron 4 mg PO Q12H pantoprazole 40 mg PO DAILY pantoprazole 40 mg PO DAILY polyethylene glycol 3350 (Miralax) 17 grams PO DAILY sucralfate 10 mL PO BID vitamin A 3,000 mcg PO DAILY 90 days zinc gluconate 30 mg PO DAILY HPI TV Pre Op LSG 07/12/23 HPI Details Start time: 8.05am, End time: 8.35am ?I spent 25 minutes speaking with the patient on the phone plus an additional 5 minutes reviewing and updating records for a total of 30 minutes HPI Comments History of Present Illness Details Overall weight loss: 48.8 lbs, or 16.14% TBWL Is doing 2 Celebrate Rebuild protein shakes (1/2 scoop in 8oz almond milk), lunch (11 forks of protein and 11 forks of salad or vegetables), one Celebrate protein bar. Exercise: Gym (incline 3-10, speed: 3.2) for 300 calories daily [facility] Medical History (Updated 03/13/23 @ 16:02 by Peggy Veloz CMA) Delivery with history of Surgical History Hx of wisdom tooth extraction Family History Mother Hypertension Bipolar 1 disorder Heart murmur Father Bipolar 1 disorder Hypertension Lung cancer Alcohol abuse Son No problems noted. Daughter No problems noted. Social History Alcohol intake: former Patient Tobacco Use Status: Never used Tobacco Assessment & Plan Assessment & Plan (1) Morbid obesity: Code(s): E66.01 - Morbid (severe) obesity due to excess calories Plan: 1. Plan for lap sleeve gastrectomy including upper GI endoscopy. All tests has been completed and reviewed and the patient is cleared for the surgery. ?If diaphragmatic or ventral hernias are present at time of surgery, these will be repaired laparoscopically as well. 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 I emphasized the importance of close follow-up, adherence to instructions and good communication. So far she has proven to be an excellent communicator and very compliant with all our directions accomplishing a great weight loss. I believe that she is an excellent candidate and she is ready. 2. Preop prescriptions were provided and explained the purpose of each one. Need to be purchased preop. Start Pantoprazole now as you get it from the pharmacy, 1 pill per day. Sucralfate and Zofran are for after surgery as needed. 3. Bowel prep: please do 7 packets ?of Miralax mixing each one with a an 8oz glass of water, crystal light, gatorade zero, or propel ?on 07/10/23 and the same amount on 07/11/23. The Miralax you begin with one packet at a time in 8oz water or crystal light, gatorade zero, or propel ?as early in the day as you can and you do them back to back until you finish them. Continue the protein shakes during? the bowel prep. 4. Needs to purchase 1oz medicine cups . 5. Needs to purchase Children's liquid Tylenol for postop pain control. 6. Avoid aspirin, motrin, Advil, Aleve, Ibuprofen, Naproxyn. Tylenol is OK. 7. She needs to purchase the Celebrate 4:1 protein shakes from the hospital's gift shop. 8. Will do basic preop blood work-up any day between Sunday07/02/23 and Sunday07/06/23 fasting for 12 hours and is scheduled to see the Anesthesiologist prior to the day of surgery. 9. Please check your blood pressure daily in the morning when you wake up. If your blood pressure is below 120/70 please let me know and don't take the Lisinopril that day. 10. Importance of adherence to postop folllow-up and recommendations was underscored and she understands that. 11. Stop food and bars as of Sunday07/02/23 and continue with 2 Celebrate REBUILD protein shakes (ONE scoop EACH in 8oz almond milk) at 7am-9am and 10am- 12pm and THREE more Celebrate REBUILD protein shakes with TWO scoops in 8oz of almond milk at 1pm-3pm, 4pm-6pm and 7pm-9pm 12. No soups, broths or V8 13. The patient's?medical?history has been reviewed and they are considered low risk for post op DVT and therefore DVT prophylaxis is not considered necessary. Travel after surgery was reviewed. The patient has not disclosed any travel pl ans during the first 30 days after surgery and they have been advised that within the first 30 days after surgery any bus, plane, train or car travel over 2 hours in duration is contraindicated due to the possibility of developing blood clots from immobility. Any travel, needs to include periods of ambulation of 10 minutes in duration every 2 hours.? Patient was instructed to discuss any plans for travel during this period with their bariatric surgeon.? 14. Use your CPAP daily and bring it to the hospital with your mask 15. Please take at the day of surgery the following medications: Lisinopril. 16. Stop any control pills and don't use them for one month after surgery 17. Absolutely no smoking or vaping, or marijuana until the surgery and for at least the first 4 weeks. Only nicotine patches are allowed. 18. Send me weight measurements today, next Sunday07/06/23 on and then on 07/12/23, the day of surgery before you go to the hospital. 19. Avoid any steroids by mouth for any reason. Let me know if someone prescribes them to you 20. These instructions supersede anything else you read in the handbook, anything you watched in videos or classes or you were told by any other provider. If there is any conflict, you follow the above instructions and nothing else. Orders: Orders Comprehensive Met. Panel Today E66.01 - Morbid (severe) obesity due to excess calories, G47.33 - Obstructive sleep apnea (adult) (pediatric), I10 - Essential (primary) hypertension TSH reflex Free T4 Today E66.01 - Morbid (severe) obesity due to excess calories, G47.33 - Obstructive sleep apnea (adult) (pediatric), I10 - Essential (primary) hypertension Type and Screen Today E66.01 - Morbid (severe) obesity due to excess calories, G47.33 - Obstructive sleep apnea (adult) (pediatric), I10 - Essential (primary) hypertension Complete Blood Count Auto Diff Today E66.01 - Morbid (severe) obesity due to excess calories, G47.33 - Obstructive sleep apnea (adult) (pediatric), I10 - Essential (primary) hypertension Prothrombin Time INR Today E66.01 - Morbid (severe) obesity due to excess calories, G47.33 - Obstructive sleep apnea (adult) (pediatric), I10 - Essential (primary) hypertension Partial Thromboplastin Time Today E66.01 - Morbid (severe) obesity due to excess calories, G47.33 - Obstructive sleep apnea (adult) (pediatric), I10 - Essential (primary) hypertension C Reactive Protein Today E66.01 - Morbid (severe) obesity due to excess calories, G47.33 - Obstructive sleep apnea (adult) (pediatric), I10 - Essential (primary) hypertension Lipid Panel Today E66.01 - Morbid (severe) obesity due to excess calories, G47.33 - Obstructive sleep apnea (adult) (pediatric), I10 - Essential (primary) hypertension Hemoglobin A1c Today E66.01 - Morbid (severe) obesity due to excess calories, G47.33 - Obstructive sleep apnea (adult) (pediatric), I10 - Essential (primary) hypertension Insulin Today E66.01 - Morbid (severe) obesity due to excess calories, G47.33 - Obstructive sleep apnea (adult) (pediatric), I10 - Essential (primary) hypertension Medications: New sucralfate 10 mL PO BID 600 mL 2RF K21.9 - Gastro-esophageal reflux disease without esophagitis pantoprazole 40 mg PO DAILY 90 tabs 0RF K21.9 - Gastro-esophageal reflux disease without esophagitis ondansetron Only take one every 12 hours as needed if you have nausea 4 mg PO Q12H 20 tabs 0RF nausea and vomiting R11.0 - Nausea polyethylene glycol 3350 (Miralax) Mix each packet with 8oz of water, Crystal light, or Gatorade zero, or Propel and do 7 packets on 07/10/23 and another 7 packets on 07/11/23 17 grams PO DAILY 14 ea 0RF Z01.818 - Encounter for other preprocedural examination Telehealth Telehealth Location of provider rendering services: practice address Location of patient: address on file Patient Identification confirmed using: Name, : Yes Telehealth method: voice only Patient verbally consented to treatment: Yes Patient verbally consented to billing insurance company: Yes Patient informed of any privacy concerns related to visit: Yes Minutes spent on Phone/Video with Pt.: 30 Coding Level of Care Code Tele Est Pt Level 4 (69496) Diagnoses Morbid obesity E66.01 Time Spent (min) 30
[2023-06-29 08:25] VITALS: BMI 40.9
== END 2023-06-29 08:36 | disposition home or self-care (01) ==
LOC: HO.HBS 08:10
PROVIDERS: PCP Internal Medicine; Visit Provider Surgery
DX: E66.01 Morbid (severe) obesity due to excess calories (principal)
CPT/HCPCS: 99214

== ENCOUNTER → 2023-06-29 08:10 | Outpatient (BNVA) | payer OTHER, SELFPAY | PROVIDERS: PCP Internal Medicine; Visit Provider Surgery | DX: E66.01 Morbid (severe) obesity due to excess calories (principal); G47.33 Obstructive sleep apnea (adult) (pediatric); I10 Essential (primary) hypertension ==

== ENCOUNTER 2023-07-02 08:39 | Outpatient (REF) | payer OTHER, SELFPAY ==
[2023-07-02 09:17] LABS: MANUAL DIFF FLAG NO
[2023-07-02 09:49] LABS: Basophils Percent Auto 0.5 % (0-2); Eosinophils Absolute Auto 0.2 X10*3/uL (0.0-0.4); Eosinophils Percent Auto 2.1 % (0-4); Hematocrit 35.2 % (37.0-47.0); Hemoglobin 12.1 g/dl (12.0-16.0); Imm Gran Abs Auto 0.02 X10*3/uL (0.00-0.03); Imm Gran Pct Auto 0.3 % (0.0-0.4); Lymphocytes Absolute Auto 1.7 X10*3/uL (1.2-4.9); Lymphocytes Percent Auto 23.1 % (20-40); Mean Corpuscular HGB Conc 34.4 g/dl (31.0-35.0); Mean Corpuscular Hemoglobin 30.6 pg (27.0-33.0); Mean Corpuscular Volume 88.9 fL (80.0-98.0); Mean Platelet Volume 10.7 fL (9.4-12.3); Monocytes Absolute Auto 0.5 X10*3/uL (0.1-1.2); Monocytes Percent Auto 6.5 % (2-11); Neutrophils Absolute Auto 5.1 x10*3/uL (2.0-8.3); Neutrophils Percent Auto 67.5 % (45-73); Platelet Count 324 X10*3/uL (160-400); Red Blood Count 3.96 X10*6/uL (4.20-5.50); Red Cell Distribution Width 12.1 % (11.0-16.0); White Blood Count 7.5 X10*3/uL (4.8-10.8)
[2023-07-02 09:55] LABS: INTERNATIONAL NORM RATIO 0.9 (0.9-1.1); Prothrombin Time 11.2 SEC (11.1-13.3)
[2023-07-02 09:57] LABS: Partial Thromboplastin Time 30.5 SEC (26.0-36.4)
[2023-07-02 09:58] LABS: Estimated Average Glucose 88 mg/dL; Hemoglobin A1c % 4.7 % (<6.0)
[2023-07-02 10:22] LABS: Alanine Aminotransferase 21 U/L (0-31); Albumin Level 3.9 g/dL (3.5-5.0); Alkaline Phosphatase 54 U/L (39-117); Anion Gap 14 (12-20); Aspartate Amino Transferase 15 U/L (5-31); Bilirubin Total 0.3 mg/dL (0.0-1.0); Blood Urea Nitrogen 11 mg/dL (9-16); C Reactive Protein 0.68 mg/dL (< or = 0.50); Calcium 9.1 mg/dL (8.4-10.2); Carbon Dioxide 21 mmol/L (22-29); Chloride 109 mmol/L (96-108); Cholesterol 128 mg/dL (<200); Estimated Glomerular Filt Rate > 60; Glucose Random 74 mg/dL (60-115); HDL Cholesterol 36 mg/dL (>40); LDL Cholesterol Calculated 71 mg/dL (<100); Potassium 3.9 mmol/L (3.3-5.1); Sodium 140 mmol/L (135-145); Triglycerides 106 mg/dL (<150)
[2023-07-02 10:42] LABS: Insulin 8 uU/mL (2-29); TSH reflex Free T4 1.69 uIU/mL (0.32-4.0)
== END 2023-07-02 08:40 | disposition home or self-care (01) ==
LOC: HO.LAB 08:39
PROVIDERS: PCP Internal Medicine; Visit Provider Surgery
DX: E66.01 Morbid (severe) obesity due to excess calories (principal); G47.33 Obstructive sleep apnea (adult) (pediatric); I10 Essential (primary) hypertension
CPT/HCPCS: 36415; 80053; 80061; 83036; 83525; 84443; 85025; 85610; 85730; 86140

== ENCOUNTER → 2023-07-04 08:12 | Outpatient (BNVA) | payer OTHER, SELFPAY | PROVIDERS: PCP Internal Medicine; Visit Provider Surgery ==

== ENCOUNTER 2023-07-12 06:10 | Inpatient (IN) | payer OTHER, SELFPAY ==
[2023-07-02 12:32] VITALS: BMI 40.8
--- NOTE | 2023-07-11 08:34 | HO.ANESPROP2 ---
Documented by User: Jordyn Lebron NP 07/11/23 08:35 HPI - Anesthesia Eval Consult details Narrative: 33yo F for Gastrectomy Sleeve,EGD,poss diaphragmatic hernia,poss ventral hernia,poss open, PMFSH Active Problems Active Problems: All Active Problems (Updated 07/02/23 @ 12:35 by Bree Fleming RN) Morbid obesity (Acute) EDINSON (obstructive sleep apnea) (Acute) HTN (hypertension) (Acute) Abdominal pain (Acute) Abnormal bowel habits (Acute) Atopic dermatitis (Acute) Past Medical History Medical History Body piercing Family history of complication of anesthesia Atopic dermatitis HTN (hypertension) Sleep apnea Family History Family History Mother Hypertension Bipolar 1 disorder Heart murmur Father Bipolar 1 disorder Hypertension Lung cancer Alcohol abuse Son No problems noted. Daughter No problems noted. Surgical History Surgical History Hx of section Hx of wisdom tooth extraction Social History Social History Are you a primary group care worker to a significant other at home: No Do you presently have visiting nurse or other home services: No Alcohol intake: former Patient Tobacco Use Status: Former Tobacco user Quit Date: age 24 Tobacco use type: Cigarette Years Smoked: 1 Use of substances other than those prescribed or required for medical reasons: Yes Have you been hit, kicked, punched, or otherwise hurt by someone within the past year? If so, by whom?: No Are you DNR?: No Advance Directives: No ( is primary contact) Advance Directives Information Provided: No Advance Directives on File: No Recently lost weight without trying: No Eating poorly because of decreased appetite: No Nutrition Risks: No Nutritional Risk Patient : No FDLMP: 07/01/23 : No Poor oral hygiene: No Meds Allergies Allergy/AdvReac Type Severity Reaction Status Date / Time No Known Allergies Allergy Verified 07/12/23 06:48 Home Medications Medication Instructions Recorded Confirmed Last Taken Type fluoxetine 60 mg tablet 70 mg PO DAILY 02/14/23 07/02/23 Unknown History lisinopril 30 mg tablet 30 mg PO DAILY 02/14/23 07/02/23 07/12/23 History Exam Height,Weight and Vital Signs: Height 5 ft 6 in Weight 114.759 kg Pertinent Lab Results Pertinent Lab Results: Laboratory Tests 07/02/23 09:03 Blood Type O Positive Antibody Screen NEGATIVE Laboratory Tests 07/02/23 09:14 WBC 7.5 Hgb 12.1 Hct 35.2 L Plt Count 324 Sodium 140 Potassium 3.9 Chloride 109 H Carbon Dioxide 21 L BUN 11 Creatinine 0.74 Assessment and Plan Assessment Anesthesia Assessment: Chart Reviewed Documented by User: Bob Roberts MD 07/12/23 07:08 [facility] Past Medical History Medical History Body piercing Family history of complication of anesthesia Atopic dermatitis HTN (hypertension) Sleep apnea Family History Family History Mother Hypertension Bipolar 1 disorder Heart murmur Father Bipolar 1 disorder Hypertension Lung cancer Alcohol abuse Son No problems noted. Daughter No problems noted. Family history of problems with anesthesia: No Surgical History Surgical History Hx of section Hx of wisdom tooth extraction History of Problems with Anesthesia: No Social History Social History Are you a primary group care worker to a significant other at home: No Do you presently have visiting nurse or other home services: No Alcohol intake: former Patient Tobacco Use Status: Former Tobacco user Quit Date: age 24 Tobacco use type: Cigarette Years Smoked: 1 Use of substances other than those prescribed or required for medical reasons: Yes Have you been hit, kicked, punched, or otherwise hurt by someone within the past year? If so, by whom?: No Are you DNR?: No Advance Directives: No ( is primary contact) Advance Directives Information Provided: No Advance Directives on File: No Recently lost weight without trying: No Eating poorly because of decreased appetite: No Nutrition Risks: No Nutritional Risk Patient : No FDLMP: 07/01/23 : No Poor oral hygiene: No Meds Allergies Allergy/AdvReac Type Severity Reaction Status Date / Time No Known Allergies Allergy Verified 07/12/23 06:48 Home Medications Medication Instructions Recorded Confirmed Last Taken Type fluoxetine 60 mg tablet 70 mg PO DAILY 02/14/23 07/02/23 Unknown History lisinopril 30 mg tablet 30 mg PO DAILY 02/14/23 07/02/23 07/12/23 History Exam Airway Mallampati Class: III TM Dist: >3cm Neck ROM: Full Loose/Missing/Broken Teeth: Yes (chipped teeth diffusely) Heart: [id number] Lungs: cta b/l Assessment and Plan Assessment Anesthesia Assessment: Anesthesia Plan Discussed Final Anesthetic Review Family History of Problems with Anesthesia: No History of Problems with Anesthesia: No NPO: Yes ASA Class: III Final Preanesthetic Review: No Changes in Pt Med Stat, Meds/Allgs Chart Reviewed, Consent Obtained/Reviewed and Anes Risks/Benef Reviewed Patient Risk: Intermediate Procedure Risk: Intermediate Assessment/Block/Sedation in SS: Assess/Block/Sedation-SS Anesthetic Plan Anesthetic Plan: GA and Agree w/ Assess. and Plan Disposition: Standard PACU
[2023-07-12] VITALS (10 sets, daily range): BP systolic 119–159; BP diastolic 76–99; PULSE 73–99; RESP 14–18; TEMP 36.4–37.1; O2SAT 96–99; BMI 38.4
[2023-07-12] MEDS: Lactated Ringers 1,000 ML 100 ML IVCONT ×3 (06:17→20:58)
[2023-07-12] MEDS: Lactated Ringers 1,000 ML 999 ML IV (06:17)
[2023-07-12 06:19] LABS: UPreg QC Valid YES; Urine Pregnancy NEGATIVE (NEGATIVE)
[2023-07-12] MEDS: Aprepitant 32 MG/4.4 ML VIAL IVPUSH (06:52)
--- NOTE | 2023-07-12 07:08 | PHA.MEDREC ---
Pharmacy Consult ? Medication Reconciliation Pharmacy has completed the medication reconciliation. Reviewed med rec done by nursing
--- NOTE | 2023-07-12 07:42 | MHC.SHP ---
Pre-Procedural Eval Section A - 24 Hr Update-Section A only Date of Service: 07/12/23 The patient is an INPATIENT: Yes The patient has been examined within 24 hours of the surgical procedure. The History & Physical has been completed within 30 days and I have reviewed it.: Yes Section B - Complete if H&P > 30 days Chief Complaint: morbid obesity Relevant Family History (Specify if Yes): No Relevant Social History: None Present Medications: None Medical History: No relevant PMH History of Previous Operations: No relevant previous surgery Allergies: Allergies Allergy/AdvReac Type Severity Reaction Status Date / Time No Known Allergies Allergy Verified 07/12/23 06:48 Review of Systems Sugical H&P ROS: Negative: Constitution, Cardiovascular, Respiratory, Neurological, Psychiatric, Hem-Onc, Allergic/Immunologic, Gastrointestinal, Genitourinary, Musculoskeletal, Integumentary, Endocrine and Eyes/Ears/Nose/Throat Exam Surgical H&P Exam: Normal: HEENT, Normal: Heart, Normal: Lungs, Normal: Extremities, Normal: Abdomen, Normal: Skin and Normal: Neurological Plan Diagnosis/Plan: Unchanged I have reviewed the history and physical and performed a pertinent physical examination on my patient. No changes have occurred unless specified. Time Spent With Patient Time: Total time managing care of this patient today ____ minutes.
--- NOTE | 2023-07-12 07:45 | P.BOP_ITS ---
Brief Operative Note Date of Service: 07/12/23 Pre-op diagnosis: Morbid obesity with comorbidities (see below) Post-op diagnosis: same Procedure: INITIAL PATIENT BMI ON PRESENTATION AT OUR OFFICE: 48.8 kg/m2 LAST BMI BEFORE SURGERY: 40 kg/m2 COMORBIDITIES: sleep apnea on CPAP, hypertension, depression, anxiety, liver fibrosis ?The patient presented to the Weight Management Program with significant obesity that was negatively impacting the patient's comorbidities as listed above.? The program is a phased program with a special focus on preoperative medical weight management to promote substantial weight loss and prepare the patients for the second phase of the program: bariatric surgery. The patient participated in an intensive weekly lifestyle ?intervention and exercise program during which the patient ?has lost between the initial office visit and the last preoperative visit 56.6lbs, or 18.72% of initial actual body weight. It was deemed appropriate for the patient to now have bariatric surgery. In light of the current Covid-19 pandemic and the well documented strong association of obesity and increased risk of worse outcomes if infected with Covid-19 (REFERENCES: https://pubmed.ncbi.nlm.nih.gov/72381729/ ,? https://pubmed.ncbi.nlm.nih.gov/20023223/ ), any delay in undergoing bariatric surgery may lead to the patient's worsening health condition and increased?risk of more severe Covid-19 disease if infected. In addition a recent?study from [facility] published in [employer] on 05/30/2021 ([email or web address]) found that, among patients with obesity, substantial weight loss achieved with surgery was associated with improved outcomes of COVID-19 infection. The findings suggest that obesity can be a modifiable risk factor for the severity of COVID-19 infection. In addition, the patient met the BMI-criteria for bariatric surgery based on the BMI on initial presentation. The patient should not be penalized for achieving such weight loss because ?it is not sustainable long-term without surgical intervention and it was achieved in preparation for bariatric surgery ?under my direction and based on my published research ([email or web address]).[email or web address] and? https://www.soard.org/article/F7879-5949(91)46777-X/pdf ) ?that a 10% preopera tive weight loss improves long-term weight loss after surgery and reduces perioperative complications.? Insurance carriers such as [facility] have endorsed my recommendations ?and have included in their policies criteria to include a 10% preoperative weight loss requirement. PROCEDURE: Esophago-gastroscopy, laparoscopic sleeve gastrectomy and laparoscopic gastropexy INDICATIONS: This is a 33 year-old female who was electively scheduled for laparoscopic, possibly open sleeve gastrectomy. The risks and complications of the procedure were discussed with the patient in advance, particularly the possibility of ; pulmonary embolism; staple line leak; bleeding; GERD; cardiac, pulmonary, or renal complications; as well as long-term problems such as insufficient weight loss, vitamin deficiency, strictures, or ulcers. The patient understood all the risks, and was in agreement to proceed with surgery. DESCRIPTION OF PROCEDURE: After informed consent was obtained from the patient, the patient was given preoperative antibiotics, and was transferred to the operating room. After successful induction of general anesthesia, pneumatic compression devices were placed on both lower extremities. An upper endoscopy was performed next. The oropharynx and esophagus appeared to be within normal limits. There was no diaphragmatic hernia present consistent with the findings of the preoperative upper GI. The stomach was entered. Then after all fluid and air were suctioned and the stomach was fully decompressed, the scope was withdrawn and secured in the mid esophagus. The patient was then prepped and draped in the usual sterile manner, and abdominal access was established at the right upper quadrant with the Grady technique. A 12 mm blunt port was inserted, and the abdomen was insufflated with CO2 to a pressure of 15 mmHg. Under direct visualization, additional ports were placed, specifically two 5 mm Versi-step ports to the left upper quadrant, and a 5 mm Versi-Step port to the right upper quadrant. 1% lidocaine plain was used to infiltrate all port sites as well as all fascia defects. Following that, the patient was placed in a steep reverse Trendelenburg position. An additional 5 mm port was placed to the right flank for the Mediflex retractor that was used to retract the left lobe of the liver. The gastro-esophageal fat pad was opened with the ultrasonic device (Thunderbeat, Awesomi) and the anterior esophagus and hiatus were exposed. The angle of His was opened with the ultrasonic device the fundus of the stomach from any diaphragmatic and splenic attachments. I then opened the gastrocolic ligament between the transverse colon and the greater curvature of the stomach with the ultrasonic device to enter the lesser sac and facilitate the ligation of the short gastric vessels. I started at a mid-point along the greater curvature and using the Thunderbeat, all short gastric vessels were divided all the way to the angle of His until the left quita was completely dissected at its entirety. I then divided the gastro-colic ligament distally to a distance of about 3-4 cm proximal to the pylorus. The stomach was then divided transversely with two Endo KISHA-45 purple and four KISHA-60 articulating purple loads using the [employer] stapler and loads. Every effort was made that the gastric sleeve had a tubular shape and an even caliber throughout. Once the sleeve resection was completed, the staple line of the gastric sleeve was reinforced with Hemoclips. The resected stomach was retrieved without difficulty from the Grady port. A gastropexy was then performed in order to prevent postoperative GERD and partial gastric volvulus. Several interrupted 2.0 Surgidac sutures were placed between the sleeve's staple line and the previously divided greater omentum and gastro-colic ligament using the Endo-Stitch device. ?An upper endoscopy was performed. There was no narrowing at the GE junction. The scope was easily advanced all the way to the pylorus which was clearly visualized. There was no narrowing anywhere and the sleeve's caliber was even throughout. The sleeve's staple line was inspected and there was no evidence of ischemia, bleeding or dehiscence. At that point the gastroscope was withdrawn from the patient?s mouth while we were decompressing the bowel and the stomach from any remaining air. I looked into the lesser sac to see how the sleeve was situating and it was situating well. There was no bleeding from the staple line, spleen, or short gastric vessels. The Mediflex retractor was removed, and the undersurface of the liver was inspected and there was no bleeding. The patient was placed in supine position. I closed the fascial defect of the 12 mm port site with a figure of eight #1 Polysorb suture. Then 30cc Ropivacaine plain with 10 mg of Dexamethasone were used to infiltrate the fascial closure as well as all skin incisions. At this point, the abdomen was deflated, all ports were removed under direct vision, and no bleeding was noted from any of the port sites. The skin incisions were irrigated with saline and were closed with 4-0 absorbable monofilament sutures. Steri-Strips and OpSites were used to cover all incisions. The patient was extubated and was transferred in stable condition to the recovery room for further care. I was present and performed all becerra parts of the procedure. Mr. Summers was the maintenance assistant. There were no residents to assist with this case. Joey Rodriguez MD, PhD, FACS Surgeon: Sharad Rodriguez MD Anesthesia: GETA, local and other (TAP block) Was an Assistant Research Scientist used for this Procedure?: No Assistant Research Scientist: Jw Summers Estimated blood loss (mL): 10 IV fluids (mL): 2,500 Urine output (mL): 0 (No Richards to record output) Pathology: other (stomach) Condition: stable Disposition: PACU
--- NOTE | 2023-07-12 07:47 | P.PNGS_ITS ---
Subjective Subjective Date of Service: 07/12/23 Interval history: Feels well. Mild incisional pain. She is tolerating phase 1 bariatric diet Physical Exam Vital Signs: Vital Signs: Last Vital Signs Temp 98.1 F 07/12/23 06:46 Pulse 99 07/12/23 06:46 Resp 18 07/12/23 06:46 BP 143/99 H 07/12/23 06:46 Pulse Ox 97 07/12/23 06:46 O2 Del Method Room Air 07/12/23 06:46 BMI result Body Mass Index 38.4 GI: Inspection: Yes normal to inspection, Yes incision (clean, dry and intact) and Yes obesity Palpation (GI): Soft to palpation Extrem: Right lower extremity: normal to inspection (no calf tenderness) Left lower extremity: normal to inspection (no calf tenderness) Objective Data Active Medications Fentanyl (Fentanyl Citrate/Pf 100 Mcg/2 Ml Vial) 50 mcg IVPUSH Q5M PRN; Protocol PRN Reason: Pain, Moderate(Pain Scale 4-6) Hydromorphone HCl (Hydromorphone Hcl 0.5 Mg/0.5 Ml Syringe) 0.5 mg IVPUSH Q5M PRN; Protocol PRN Reason: Pain, Severe (Pain Scale 7-10) Lactated Ringer's (Lr) 1,000 mls @ 100 mls/hr IVCONT .Q10H [facility] Last Admin: 07/12/23 06:17 Dose: 100 mls/hr Documented By: PHILLIP Lactated Ringer's (Lr) 1,000 mls @ 999 mls/hr IV .Q1H1M [facility] Stop: 07/12/23 08:15 Last Admin: 07/12/23 06:17 Dose: 999 mls/hr Documented By: PHILLIP Ondansetron HCl (Ondansetron Hcl 4 Mg/2 Ml Vial) 4 mg IVPUSH ONCE PRN PRN Reason: Nausea and Vomiting Labs Labs: Laboratory Results - last 24 hr 07/12/23 06:00 Urine Test NEGATIVE Procedures Date of Service Date of Service: 07/12/23 Progress Note: A&P Assessment and plan (1) Morbid obesity: Status: Acute Assessment and Plan: s/p laparoscopic sleeve gastrectomy and gastropexy Doing well Will check am labs and if OK the patient will be discharged home (2) EDINSON (obstructive sleep apnea): Status: Acute (3) HTN (hypertension): Status: Acute (4) Liver fibrosis: Status: Acute (5) Depression: Status: Acute (6) Anxiety: Status: Acute (7) S/P laparoscopic sleeve gastrectomy: Status: Acute Time Spent With Patient Time: Total time managing care of this patient today ____ minutes. Quality Stroke Does the patient have a stroke diagnosis?: No VTE Prior VTE?: No VTE Risk Level:: Surgical - moderate VTE Device Contraindication: N/A - Device Ordered VTE Drug Contraindication: Treatment Not Indicated
--- NOTE | 2023-07-12 10:18 | PM.DS ---
DS: Providers Provider Date of Service: 07/13/23 Date of admission: 07/12/23 06:10 Primary care physician: Denise Walters MD DS: Diagnosis Discharge Diagnosis (1) Morbid obesity: Status: Acute (2) EDINSON (obstructive sleep apnea): Status: Acute (3) HTN (hypertension): Status: Acute (4) Liver fibrosis: Status: Acute (5) Depression: Status: Acute (6) Anxiety: Status: Acute DS: Summary Hospital Course Hospital Course: ADMITTING DIAGNOSIS: obesity, edinson, htn, depression ? DISCHARGE DIAGNOSIS: same, s/p laparoscopic sleeve gastrectomy ? PAST SURGICAL HISTORY: cesarian section ? PROCEDURE: upper endoscopy, laparoscopic sleeve gastrectomy ? DISCHARGE SUMMARY: ? History of Present Illness: ? The patient is a?33 year-old woman with a BMI of?48.8 kg/m2 and associated co-morbidities as described above. The patient had extensive work-up,lost?50.1 lbs preoperatively and was electively scheduled for laparoscopic, possible open sleeve gastrectomy and gastropexy. Risks and complications of the surgery were discussed with the patient in advance, particularly the possibility of , pulmonary embolism, anastomotic leak, bleeding, bowel injury, GERD, cardiac, renal or pulmonary complications. The patient understood all the risks and was in agreement with the surgical plan. ? Hospital Course: ? The patient underwent an uneventful laparoscopic sleeve gastrectomy with gastropexy on the day of admission. Postoperatively, the patient was transferred to the surgical floor. The patient received IV Acetaminophen and IV dilaudid for pain control. Patient was started on bariatric phase 1 diet POD #0. On postoperative day one, the patient was feeling well without nausea, vomiting, fevers, or tachycardia. The patient had some mild incisional pain and the abdomen was soft. ? On the morning of postoperative day one, the patient was continued on 1 ounce of water or ice every half hour. During the day, the patient did fairly well, having some incisional pain, but able to ambulate adequately and to tolerate liquids well. ? Since the patient is doing well, we decided that the patient was ready to be discharged. The patient was given instructions to follow-up with me next week and to call my office for any fever over 101, persistent abdominal pain, nausea, vomiting, GERD, symptoms of DVT such as calf tenderness, or leg swelling, or pulmonary embolism such as chest pain or shortness of breath. The patient was also instructed to drink 40-60 ounces of liquids per day using the 1-ounce cups. The patient had been given prescriptions for Tylenol for pain, Zofran prn for nausea, and pantoprazole and carafate previously. The patient was encouraged to ambulate and use the incentive spirometer. The patient was allowed to shower, but no baths, and encouraged to stay active at home. All of these instructions were given to the patient personally. All questions were answered and the patient understood all instructions, the instructions were also given to the patient in print. Time Attestation Discharge coordination time: Less than 30 minutes Quality: Safe Use of Opioids Does Pt have an Active Cancer Diagnosis on the Problem List?: No Quality: Stroke Does the patient have a stroke diagnosis?: No Physical Exam Vital Signs: Vital Signs: Last Vital Signs Temp 98.1 F 07/12/23 06:46 Pulse 99 07/12/23 06:46 Resp 18 07/12/23 06:46 BP 143/99 H 07/12/23 06:46 Pulse Ox 97 07/12/23 06:46 O2 Del Method Room Air 07/12/23 06:46 BMI result Body Mass Index 38.4 DS: Data Data Completed and Pending Pending studies at discharge: Pending at discharge 07/12/23 09:17 Surgical [PTH] Routine Labs on day of discharge: Laboratory Results - last 24 hr 07/12/23 06:00 Urine Test NEGATIVE Discharge Plan Discharge Anticipated Discharge Date/Time: 07/13/23 10:00 Patient Disposition: Home, Self-Care Discharge Diagnosis: s/p laparoscopic sleeve gastrectomy Referrals: Denise Jackson MD [Primary Care Provider] - 1 Week Discharge Medications: Continued lidocaine HCl [Lidocaine Viscous] 2 % solution 1 appl mucous membrane TID PRN (Reason: pain) Qty: 100 0RF Rx Instructions: gargle 5-10 ml three times daily as needed. mometasone 0.1 % cream 1 appl topical DAILY Qty: 45 0RF pantoprazole 40 mg tablet,delayed release (DR/EC) 40 mg PO DAILY Qty: 90 1RF fluoxetine 60 mg tablet 70 mg PO DAILY pantoprazole 40 mg tablet,delayed release (DR/EC) 40 mg PO DAILY Qty: 90 0RF sucralfate 100 mg/mL suspension 10 ml PO BID Qty: 600 2RF ondansetron 4 mg tablet,disintegrating 4 mg PO Q12H Qty: 20 0RF Rx Instructions: Only take one every 12 hours as needed if you have nausea Held lisinopril 30 mg tablet 30 mg PO DAILY Hold Instructions: discuss BP monitoring and med administration with Dr Rodriguez Discontinued cyanocobalamin (vitamin B-12) 500 mcg tablet 500 mcg PO DAILY 90 Days Qty: 90 1RF zinc gluconate 30 mg tablet 30 mg PO DAILY Qty: 30 0RF vitamin A 3,000 mcg (10,000 unit) capsule 3,000 mcg PO DAILY 90 Days Qty: 90 0RF polyethylene glycol 3350 [Miralax] 17 gram powder in packet 17 g PO DAILY Qty: 14 0RF Rx Instructions: Mix each packet with 8oz of water, Crystal light, or Gatorade zero, or Propel and do 7 packets on 07/10/23 and another 7 packets on 07/11/23 Discharge Orders: Discharge Order (Routine); Ordered 07/13/23 Ordered By: Jw Summers Activity on Discharge: No heavy lifting Stand Alone Forms: Patient Portal Discharge page Care Plan Goals: weight loss Health Concerns: obesity Plan of Treatment: No tub baths, sex or returning to work until discussed at first post op appointment. No exercise, alcohol, tobacco or illegal drug use. Continue to use incentive spirometer hourly while awake. Walk in home for 5- 10 minutes every 2 hours during the first week. Follow all instructions in the bariatric handbook and call with any questions.Discharge Instructions 1. Please call your doctor or come back to the emergency room should any new symptoms arise. 2. You will receive a courtesy call from [facility] 24-48 hours after discharge. 3. Activity: abstain from alcohol, practice limited stair climbing, no bending, no driving, no exercise, no illicit substances, no lifting, no sex, no tub bath, no work. 4. Diet: continue as discussed with Dr. Rodriguez. 5. Dressing Change/Wound Care: Your incision is covered by clear bandages and guaze underneath. If the area is tender, you may apply an ice pack for short intervals (no more than 20 minutes on, followed by at least 20 minutes off). Do not apply heat. Do not use creams, lotions, or topical antibiotics unless instructed to do so by your surgeon. These can cause infection or allergic reaction. 6. Call your doctor if: - Your temperature exceeds 101.5 F - You experience excessive pain or swelling - You have an unexpected reaction to medication - You have excessive bleeding - You experience continued vomiting/nausea - Your incision begins to separate - Your incision shows signs of infection such as increased redness, swelling, excessive pain, heat, or drainage (light blood or clear fluid is normal) 7. General instructions: No lifting greater than 5 lbs for 1 week and not more than 20lbs the next 3?weeks. No driving until seen at the office in 5-7 days after surgery. If you do not move your bowels in the next 2 days, please tell?Dr. Rodriguez. Please walk around your home every hour or two to prevent blood clots from forming in your legs. You do not need to wake from sleeping to walk. Please sleep in a bed or couch to prevent kinking at the hips and knees. Please take your incentive spirometer (your lung electrical controls designer) home with you and use it for the next few days to prevent pneumonia. You may shower, no hot tubs, baths or swimming pools.?Please follow the post op diet instructions you are?given by Dr Rodriguez? and text me daily at 5-6pm for an update.?If you have any issues or concerns or questions please communicate this to him via text.? The Celebrate shakes have all of the bariatric vitamins you need if you consume these shakes. If you are drinking other protein shakes, you will need to purchase the Celebrate multivitamins and calcium that are available in the hospital gift shop on the first floor of the [facility].??Do not take anything without first discussing with Dr Rodriguez. Please make sure you are consuming at least 40 ounces of fluids per day starting the?day AFTER your discharge from the hospital. Always drink 1-2 ml per minute using the 5ml?syringe. If you drink faster you may experience?bloating,?gas pain, burping, nausea or heartburn. In that case please slow down your pace and use the syringe to?understand better the?proper?pace and volume of drinking. Do not hesitate to contact the office with any questions at . The patient's medical history has been reviewed and they are considered low risk for post op DVT and therefore DVT prophylaxis is not considered necessary. Travel after surgery was reviewed. The patient has not disclosed any travel plans during the first 30 days after surgery and they have been advised that within the first 30 days after surgery any bus, plane, train or car travel over 2 hours in duration is contraindicated due to the possibility of developing blood clots from immobility. Any travel, needs to include periods of ambulation of 10 minutes in duration every 2 hours.? The patient was instructed to discuss any plans for travel during this period with their bariatric surgeon. Assessment: stable s/p laparoscopic sleeve gastrectomy
[2023-07-12] MEDS: HYDROmorphone HCl 0.5 MG/0.5 ML SYRINGE IVPUSH (10:42)
[2023-07-12] MEDS: droPERidol 5 MG/2 ML VIAL 0.625 MG IVPUSH (10:43)
[2023-07-12 11:20] LABS: Hematocrit 37.3 % (37.0-47.0); Hemoglobin 12.8 g/dl (12.0-16.0)
[2023-07-12 11:30] LABS: Anion Gap 14 (12-20); Blood Urea Nitrogen 10 mg/dL (9-16); Calcium 9.1 mg/dL (8.4-10.2); Carbon Dioxide 23 mmol/L (22-29); Chloride 105 mmol/L (96-108); Creatinine Clr Calc Pharmacy 128.4; Estimated Glomerular Filt Rate > 60; Glucose Random 105 mg/dL (60-115); Potassium 4.8 mmol/L (3.3-5.1); Sodium 137 mmol/L (135-145)
[2023-07-12] MEDS: Metoclopramide HCl 10 MG/2 ML VIAL IVPUSH (13:33)
[2023-07-12] MEDS: ceFAZolin Sodium/Dextrose,Iso 2 GM/50 ML PIGGYBACK IV (13:33)
[2023-07-12] MEDS: Acetaminophen 1,000 MG/100 ML PIGGYBACK 16.7 MG IV ×2 (15:35→20:58)
[2023-07-12] MEDS: Famotidine/PF 20 MG/2 ML VIAL IVPUSH (20:58)
--- NOTE | 2023-07-12 23:19 | PC.RT ---
Home CPAP in room; pt refusing CPAP tonight. RN aware
[2023-07-13 00:12] VITALS: BP 152/97; PULSE 85; RESP 16; TEMP 36.7; O2SAT 97
[2023-07-13] MEDS: Acetaminophen 1,000 MG/100 ML PIGGYBACK 16.7 MG IV (02:34)
[2023-07-13] MEDS: Lactated Ringers 1,000 ML 100 ML IVCONT (02:35)
[2023-07-13 03:26] VITALS: BP 146/88; PULSE 85; RESP 16; TEMP 37.1; O2SAT 97
[2023-07-13 07:56] VITALS: BP 146/84; PULSE 75; RESP 18; TEMP 37.1; O2SAT 97
[2023-07-13 08:45] LABS: MANUAL DIFF FLAG NO
[2023-07-13 08:49] LABS: Basophils Percent Auto 0.3 % (0-2); Eosinophils Percent Auto 0.1 % (0-4); Hematocrit 37.6 % (37.0-47.0); Hemoglobin 13.1 g/dl (12.0-16.0); Imm Gran Abs Auto 0.08 X10*3/uL (0.00-0.03); Imm Gran Pct Auto 0.6 % (0.0-0.4); Lymphocytes Absolute Auto 2.4 X10*3/uL (1.2-4.9); Lymphocytes Percent Auto 16.7 % (20-40); Mean Corpuscular HGB Conc 34.8 g/dl (31.0-35.0); Mean Corpuscular Hemoglobin 29.8 pg (27.0-33.0); Mean Corpuscular Volume 85.6 fL (80.0-98.0); Monocytes Absolute Auto 1.1 X10*3/uL (0.1-1.2); Monocytes Percent Auto 7.7 % (2-11); Neutrophils Absolute Auto 10.8 x10*3/uL (2.0-8.3); Neutrophils Percent Auto 74.6 % (45-73); Platelet Count 394 X10*3/uL (160-400); Red Blood Count 4.39 X10*6/uL (4.20-5.50); Red Cell Distribution Width 12.1 % (11.0-16.0); White Blood Count 14.5 X10*3/uL (4.8-10.8)
[2023-07-13] MEDS: lisinopriL 10 MG TABLET 30 MG PO (09:06)
[2023-07-13] MEDS: FLUoxetine HCl 10 MG CAPSULE 70 MG PO (09:10)
[2023-07-13 09:16] LABS: Anion Gap 14 (12-20); Blood Urea Nitrogen 8 mg/dL (9-16); Calcium 9.6 mg/dL (8.4-10.2); Carbon Dioxide 21 mmol/L (22-29); Chloride 106 mmol/L (96-108); Creatinine Clr Calc Pharmacy 140.8; Estimated Glomerular Filt Rate > 60; Glucose Random 80 mg/dL (60-115); Sodium 137 mmol/L (135-145)
--- NOTE | 2023-07-13 09:36 | MHC.CM.PN ---
Patient s/p gastric sleeve. She lives with her spouse. Independent with all functional mobility. Discharged to home today self care. She has arranged for transportation home.
--- NOTE | 2023-07-13 14:31 | HO.POSTANES ---
Post Anesthesia Evaluation Post Anesthesia Evaluation Date of Service: 07/13/23 Vital Signs: Vital Signs Temp Pulse Resp BP Pulse Ox O2 Del Method 07/13/23 07:56 98.7 F 75 18 146/84 H 97 Room Air 07/13/23 04:00 Tent 07/13/23 03:26 98.7 F 85 16 146/88 H 97 Room Air Anesthesia: General Endotracheal-GETA Mental Status: Awake Pain Control: Satisfactory Nausea/Vomiting: None Hydration: Adequate Anesthesia-Related Issues: No Anes. Related Issues
== END 2023-07-13 10:22 | disposition home or self-care (01) | DRG 403 ==
LOC: HO.SSSA 10:20 → HO.S3 10:25
PROVIDERS: Nurse Practitioner; Physician Assistant Surgical; Admitting Provider Surgery; PCP Internal Medicine; Visit Provider Surgery
PROC: 0DB64Z3 Excision of Stomach, Percutaneous Endoscopic Approach, Vertical (ICD-10-PCS; CPT 43845; principal; 2023-07-12 07:30)
DX: E66.01 Morbid (severe) obesity due to excess calories (principal); K74.00 Hepatic fibrosis, unspecified; I10 Essential (primary) hypertension; G47.33 Obstructive sleep apnea (adult) (pediatric); F41.9 Anxiety disorder, unspecified; F32.A Depression, unspecified; Z68.41 Body mass index [BMI] 40.0-44.9, adult; Z87.891 Personal history of nicotine dependence; Z79.899 Other long term (current) drug therapy
CPT/HCPCS: 36415; 80048; 81025; 85014; 85018; 85025; 86850; 86900; 86901; 88304; 88305; 88307; 88342; A4649; C9088; C9145; J0131; J0690; J1100; J1170; J1790; J2250; J2371; J2405; J2704; J2765; J2795; J3010; J7120

== ENCOUNTER → 2023-07-12 06:10 | Outpatient (BNV) | payer OTHER, SELFPAY | PROVIDERS: Admitting Provider Surgery; PCP Internal Medicine; Visit Provider Surgery | DX: E66.01 Morbid (severe) obesity due to excess calories (principal); Z68.41 Body mass index [BMI] 40.0-44.9, adult | CPT/HCPCS: 43659; 43775; 99024 ==

== ENCOUNTER 2023-07-18 11:47 | Outpatient (AMB) | payer OTHER, MEDICAID, SELFPAY ==
--- NOTE | 2023-07-18 12:35 | MHC.OFFVISWM ---
Intake VS Expanded 07/18/23 12:36 BP 148/84 H Blood Pressure Location Rt brachial Blood Pressure Position Sitting Pulse 83 Pulse Source Pulse Oximeter Temp 97.3 F Temperature Source Tympanic Pulse Oximetry 98 Oxygen Delivery Method Room Air Height 5 ft 6 in Weight 229 lb 12.8 oz BMI 37.1 Body Fat % 43.5 Body Fat Mass 99.8 Fat Free Mass 129.8 Visceral Fat Rating 10.0 Body Water % 40.6 Body Water Mass 93.2 Muscle Mass/Score 123.2 Basal Metabolic Rate/Score 1,841 Intake Visit Reasons: (OV) PO LSG 07/12/23 Allergies No Known Allergies Allergy (Verified 07/18/23 12:39) HPI HPI Comments History of Present Illness Details The patient is a pleasant 33-year-old female who returns to the office today. She is 6 days post sleeve gastrectomy performed on 07/12/2023. She is tolerating celebrate rebuild, 3 shakes with 1 scoop each in 8 oz of almond milk. She has not yet moved her bowels but denies any pain. [facility] Medical History (Updated 07/12/23 @ 07:48 by Sharad Rodriguez MD) Anxiety Depression Body piercing Family history of complication of anesthesia Atopic dermatitis HTN (hypertension) Sleep apnea Surgical History Hx of laparoscopic partial gastrectomy Hx of section Hx of wisdom tooth extraction Family History Mother Hypertension Bipolar 1 disorder Heart murmur Father Bipolar 1 disorder Hypertension Lung cancer Alcohol abuse Son No problems noted. Daughter No problems noted. Social History Household Members: Spouse Are you a primary wound care center consultant to a significant other at home: No Do you presently have visiting nurse or other home services: No Alcohol intake: former Patient Tobacco Use Status: Former Tobacco user Quit Date: age 24 Tobacco use type: Cigarette Years Smoked: 1 service: No Physical Exam Vital Signs: Last Vital Signs Temp 97.3 F 07/18/23 12:36 Pulse 83 07/18/23 12:36 BP 148/84 H 07/18/23 12:36 Pulse Ox 98 07/18/23 12:36 Oxygen Delivery Method Room Air 07/18/23 12:36 BMI result Body Mass Index 37.1 GI Inspection: Yes incision (Clean, dry, intact.) Assessment & Plan Assessment & Plan (1) S/P laparoscopic sleeve gastrectomy: Code(s): Z98.84 - Bariatric surgery status Plan: POD 6 s/p LSG on 07/12/[address] Rodriguez Weight loss prior to surgery was 50.1 pounds or 16.5 % TBWL. Original weight on 02/14/2023 was 302.4 pounds and op weight was 252.3 pounds. Be sure to text Dr Rodriguez exactly 1 week after surgery your weight from your home scale so he can adjust your meal plan. Continue meal plan until f/u w colin in 2 weeks May shower, no submersion in bath for another week Continue abdominal binder with activity and exercise for the next 2 weeks. Exercise prior to surgery was treadmill, may resume No abdominal exercises for 6 weeks post operatively Will be emailed link to post op video for review Reminded of the pace of drinking, 2 mL per minute, 1 oz/15 min. Medications: New docusate sodium (Colace) 100 mg PO BID 60 caps 2RF Coding Level of Care Code Global (22792) Diagnoses S/P laparoscopic sleeve gastrectomy Z98.84
[2023-07-18 12:36] VITALS: BP 148/84; PULSE 83; TEMP 36.3; O2SAT 98; BMI 37.1
== END 2023-07-18 12:55 | disposition home or self-care (01) ==
PROVIDERS: PCP Internal Medicine; Visit Provider Physician Assistant Surgical
DX: Z98.84 Bariatric surgery status (principal)
CPT/HCPCS: 99024

== ENCOUNTER → 2023-07-18 11:47 | Outpatient (BNVA) | payer OTHER, MEDICAID, SELFPAY | PROVIDERS: PCP Internal Medicine; Visit Provider Physician Assistant Surgical ==

== ENCOUNTER 2023-08-03 11:58 | Outpatient (AMB) | payer OTHER, MEDICAID, SELFPAY ==
[2023-08-03 12:02] VITALS: BP 128/78; PULSE 73; TEMP 35.8; O2SAT 100; BMI 35.4
--- NOTE | 2023-08-03 12:02 | MHC.OFFVISWM ---
Intake VS Expanded 08/03/23 12:02 BP 128/78 Blood Pressure Location Rt brachial Blood Pressure Position Sitting Pulse 73 Pulse Source Pulse Oximeter Temp 96.4 F L Temperature Source Temporal Artery Scan Pulse Oximetry 100 Oxygen Delivery Method Room Air Height 5 ft 6 in Weight 219 lb 6.4 oz BMI 35.4 Body Fat % 42.8 Body Fat Mass 94.0 Fat Free Mass 125.4 Visceral Fat Rating 9.0 Body Water % 41.0 Body Water Mass 90.0 Muscle Mass/Score 119.0 Basal Metabolic Rate/Score 1,775 Intake Visit Reasons: (OV) PO LSG 07/12/23 Latexer Required: No Allergies No Known Allergies Allergy (Verified 08/03/23 12:05) Medication List - Last Reconciled 08/03/23 by RENETTA Oliver docusate sodium (Colace) 100 mg PO BID fluoxetine 70 mg PO DAILY mometasone 0.1% 1 appl topical DAILY pantoprazole 40 mg PO DAILY sucralfate 10 mL PO BID HPI HPI Comments History of Present Illness Details This?a?33?yo female who is s/p LSG without hiatal hernia repair on?07/12/2023. Presents for 3 week post op visit. Weight today is 219.4 pounds, with a BMI of 35.4. There has been a 83 pound weight loss,(initial weight 302.4 pounds) since starting the program on 02/14/2023 reflecting a 27.4% total body weight loss and a weight loss of 32.9 pounds since surgery (operative weight 252.3 pounds) reflecting a 13% TBWL since surgery. No complaints of nausea, emesis, abdominal pain or reflux. Reports infrequent but normal bowel movements every 2-3 days and uses stool softeners regularly. fusion mvi daily Patient states that she stopped taking her fluoxetine since surgery. She will discuss this with her psychiatrist. Overall satisfied with her meal plan Original weight on 02/14/2023 was 302.4 pounds and op weight was 252.3 pounds. Present meal plan includes: Celebrate Rebuild 2 scoops in 8 oz oat milk, 6-8 am, 12-2pm, 5-7 or 6-8 pm ZP bar 4-7 Drinking 30 oz water daily ? Exercise routine includes: PF 400 blas daily, treadmill incline 4-10, speed 3-3.4, elliptical PFSH Medical History (Updated 07/21/23 @ 00:03 by Mary Torres) Morbid obesity Abdominal pain Abnormal bowel habits Atopic dermatitis Anxiety Depression Body piercing Family history of complication of anesthesia Atopic dermatitis HTN (hypertension) Sleep apnea Surgical History Hx of laparoscopic partial gastrectomy Hx of section Hx of wisdom tooth extraction Family History Mother Hypertension Bipolar 1 disorder Heart murmur Father Bipolar 1 disorder Hypertension Lung cancer Alcohol abuse Son No problems noted. Daughter No problems noted. Social History Household Members: Spouse Are you a primary workforce investment act career manager to a significant other at home: No Do you presently have visiting nurse or other home services: No Alcohol intake: former Patient Tobacco Use Status: Former Tobacco user Quit Date: age 24 Tobacco use type: Cigarette Years Smoked: 1 service: No Physical Exam Vital Signs: Last Vital Signs Temp 96.4 F L 08/03/23 12:02 Pulse 73 08/03/23 12:02 BP 128/78 08/03/23 12:02 Pulse Ox 100 08/03/23 12:02 Oxygen Delivery Method Room Air 08/03/23 12:02 BMI result Body Mass Index 35.4 GI Inspection: Yes incision (healing well) Assessment & Plan Assessment & Plan (1) S/P laparoscopic sleeve gastrectomy: Code(s): Z98.84 - Bariatric surgery status Plan: Continue current meal plan and exercise plan she will continue to communicate with Dr. Yanes. We will have her return to the office in 1 month. (2) EDINSON (obstructive sleep apnea): Code(s): G47.33 - Obstructive sleep apnea (adult) (pediatric) Plan: She states that her tells her she is no longer snoring. I suggested she call her sleep medicine physician to schedule a repeat sleep study (3) HTN (hypertension): Code(s): I10 - Essential (primary) hypertension Plan: No longer taking lisinopril with blood pressure well controlled. (4) Depression: Code(s): F32.A - Depression, unspecified Plan: States she has not taken her fluoxetine since surgery. She will discuss this with her psychiatrist. Coding Level of Care Code Global (48154) Diagnoses S/P laparoscopic sleeve gastrectomy Z98.84 EDINSON (obstructive sleep apnea) G47.33 HTN (hypertension) I10 Depression F32.A
== END 2023-08-03 12:49 | disposition home or self-care (01) ==
PROVIDERS: PCP Internal Medicine; Visit Provider Physician Assistant Surgical
DX: Z98.84 Bariatric surgery status (principal); G47.33 Obstructive sleep apnea (adult) (pediatric); I10 Essential (primary) hypertension; F32.A Depression, unspecified
CPT/HCPCS: 99024

== ENCOUNTER → 2023-08-03 11:58 | Outpatient (BNVA) | payer OTHER, MEDICAID, SELFPAY | PROVIDERS: PCP Internal Medicine; Visit Provider Physician Assistant Surgical ==

== ENCOUNTER 2023-08-30 08:06 | Outpatient (AMB) | payer OTHER, MEDICAID, SELFPAY ==
--- NOTE | 2023-08-30 08:08 | MHC.AMNUTRGE ---
Intake VS Expanded 08/30/23 08:54 Height 5 ft 6 in Weight 208 lb BMI 33.6 Body Fat % 38.2 Body Fat Mass 79.6 Fat Free Mass 128.6 Visceral Fat Rating 7 Body Water % 44.3 Body Water Mass 92.2 Muscle Mass/Score 122.2 Basal Metabolic Rate/Score 1,789 Intake Visit Reasons: (OV) PO LSG 07/12/23 Public Health Administrator Required: No Allergies No Known Allergies Allergy (Verified 08/03/23 12:05) HPI Nutrition Presentation Details LSG DOS 07/12/23 [employer] weight 02/14/2023 302# Preop weight 252# current weight now 7wks PO 208# Reason for consult elevated BMI Diet Assmnt Details 3 shakes Rebuild each 2 sccop - 8oz oat milk (90kcal, 19g carbs) protein bar - 20g protein She does share some compensatory behaviors and this was discussed today. Fusion bariatric vitamin Womans - one per day capsule, no tolerance issues reported She lives with her and 2 kids. 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 SHe wants to teach her kids healthy eating habits as well, this is a big motivator for her. she wants to have a better QOL for her children and be around for them .she has a coworker and friend who is in the program as well and they are going through the process together. Dietary counseling reduction Diagnosis Nutrition problem #1 overweight/obesity As related to (etiology) #1 excess energy intake and physical inactivity As evidenced by (sign/symptom) #1 high BMI Monitoring/Goals Nutrition problem monitoring total energy intake, level of knowledge/skill, total PRO intake, total CHO intake, weight and oral fluids Outcome progress progressing Learning/Education Readiness to learn excellent Stages of change action Educational materials provided Yes Most Recent Diabetes Results: Cholesterol 128 mg/dL (<200) 07/02/23 HDL Cholesterol 36 mg/dL (>40) L 07/02/23 Triglycerides 106 mg/dL (<150) 07/02/23 Creatinine 0.72 mg/dL (0.5-1.4) 07/13/23 Blood Urea Nitrogen 8 mg/dL (9-16) L 07/13/23 Sodium 137 mmol/L (135-145) 07/13/23 Potassium 4.0 mmol/L (3.3-5.1) 07/13/23 Chloride 106 mmol/L (96-108) 07/13/23 Carbon Dioxide 21 mmol/L (22-29) L 07/13/23 Calcium 9.6 mg/dL (8.4-10.2) 07/13/23 AST 15 U/L (5-31) 07/02/23 ALT 21 U/L (0-31) 07/02/23 Total Protein 7.0 g/dL (6.5-8.0) 07/02/23 Albumin 3.9 g/dL (3.5-5.0) 07/02/23 [facility] Medical History (Updated 07/21/23 @ 00:03 by Mary Torres) Morbid obesity Abdominal pain Abnormal bowel habits Atopic dermatitis Anxiety Depression Body piercing Family history of complication of anesthesia Atopic dermatitis HTN (hypertension) Sleep apnea Surgical History Hx of laparoscopic partial gastrectomy Hx of section Hx of wisdom tooth extraction Family History Mother Hypertension Bipolar 1 disorder Heart murmur Father Bipolar 1 disorder Hypertension Lung cancer Alcohol abuse Son No problems noted. Daughter No problems noted. Social History Household Members: Spouse Are you a primary healthcare network pricing consultant to a significant other at home: No Do you presently have visiting nurse or other home services: No Alcohol intake: former Patient Tobacco Use Status: Former Tobacco user Quit Date: age 24 Tobacco use type: Cigarette Years Smoked: 1 service: No Assessment & Plan Assessment & Plan (1) S/P laparoscopic sleeve gastrectomy: Code(s): Z98.84 - Bariatric surgery status Plan Please monitor relationship with food and promote healthy sustainable habits. Also recommended 1% milk in shakes to increase protein intake. has lost 20# of muscle mass since beginning the program and would really benefit from additional protein . Is getting 270kcal and 57g carb from oatmilk , not contributing to satiety or food satisfaction . Coding Level of Care Code Nutr Indiv Subseq (72684) Diagnoses S/P laparoscopic sleeve gastrectomy Z98.84 Time Spent (min) 30
[2023-08-30 08:54] VITALS: BMI 33.6
== END 2023-08-30 08:54 | disposition home or self-care (01) ==
PROVIDERS: PCP Internal Medicine; Visit Provider Dietitian, Registered
DX: Z98.84 Bariatric surgery status (principal)

== ENCOUNTER → 2023-08-30 08:06 | Outpatient (BNVA) | payer OTHER, MEDICAID, SELFPAY | PROVIDERS: PCP Internal Medicine; Visit Provider Dietitian, Registered | DX: E66.9 Obesity, unspecified (principal); Z68.33 Body mass index [BMI] 33.0-33.9, adult; Z98.84 Bariatric surgery status; Z71.3 Dietary counseling and surveillance | CPT/HCPCS: 97803 ==

== ENCOUNTER 2023-09-03 11:47 | Outpatient (AMB) | payer OTHER, MEDICAID, SELFPAY ==
--- NOTE | 2023-09-03 08:11 | MHC.OFFVISWM ---
Intake VS Expanded 09/03/23 08:14 BP 130/64 Blood Pressure Location Rt brachial Blood Pressure Position Sitting Pulse 65 Pulse Source Pulse Oximeter Temp 96.9 F Temperature Source Temporal Artery Scan Pulse Oximetry 100 Oxygen Delivery Method Room Air Height 5 ft 6 in Weight 207 lb BMI 33.4 Body Fat % 38.2 Body Fat Mass 79.0 Fat Free Mass 127.8 Visceral Fat Rating 7.0 Body Water % 44.3 Body Water Mass 91.8 Muscle Mass/Score 121.4 Basal Metabolic Rate/Score 1,780 Intake Visit Reasons: (OV) PO LSG 07/12/23 Plant Puller Required: No Allergies No Known Allergies Allergy (Verified 09/03/23 08:15) Medication List - Last Reconciled 09/03/23 by RENETTA Oliver docusate sodium (Colace) 100 mg PO BID mometasone 0.1% 1 appl topical DAILY pantoprazole 40 mg PO DAILY sucralfate 10 mL PO BID HPI HPI Comments History of Present Illness Details This?a?33?yo female who is s/p LSG without hiatal hernia repair on?07/12/2023. Presents for 2 month post op visit. Weight today is 207 pounds, with a BMI of 33.4. There has been a 95.4 pound weight loss,(initial weight 302.4 pounds) since starting the program on 02/14/2023 reflecting a 31.5% total body weight loss and a weight loss of 45.3 pounds since surgery (operative weight 252.3 pounds) reflecting a 17.9% TBWL since surgery. No complaints of nausea, emesis, abdominal pain or reflux. Reports infrequent but normal bowel movements every 2-3 days and uses stool softeners regularly. fusion mvi daily Patient states that she is doing very well and wants to continue her meal plan for now. Present meal plan includes: Celebrate Rebuild 2 scoops in 8 oz oat milk, 6-8 am, 12-2pm, 5-7 or 6-8 pm ZP bar 4-7 Drinking 50-60 oz water daily ? Exercise routine includes: PF 450-500 blas daily, treadmill incline 9-15, speed 3.6, elliptical PFSH Medical History Morbid obesity Abdominal pain Abnormal bowel habits Atopic dermatitis Anxiety Depression Body piercing Family history of complication of anesthesia Atopic dermatitis HTN (hypertension) Sleep apnea Surgical History Hx of laparoscopic partial gastrectomy Hx of section Hx of wisdom tooth extraction Family History Mother Hypertension Bipolar 1 disorder Heart murmur Father Bipolar 1 disorder Hypertension Lung cancer Alcohol abuse Son No problems noted. Daughter No problems noted. Social History Household Members: Spouse Are you a primary residential child care counselor to a significant other at home: No Do you presently have visiting nurse or other home services: No Alcohol intake: former Patient Tobacco Use Status: Former Tobacco user Quit Date: age 24 Tobacco use type: Cigarette Years Smoked: 1 service: No Physical Exam Vital Signs: Last Vital Signs Temp 96.9 F 09/03/23 08:14 Pulse 65 09/03/23 08:14 BP 130/64 09/03/23 08:14 Pulse Ox 100 09/03/23 08:14 Oxygen Delivery Method Room Air 09/03/23 08:14 BMI result Body Mass Index 33.4 Const General: healthy appearing and no acute distress Resp Effort & Inspection: normal respiratory effort Auscultation: clear to auscultation bilaterally Cardio Rate: regular rate Rhythm: regular rhythm GI Auscultation: normal bowel sounds Extrem General: Yes normal to inspection Assessment & Plan Assessment & Plan (1) S/P laparoscopic sleeve gastrectomy: Code(s): Z98.84 - Bariatric surgery status Plan: Patient is making excellent progress. Continue current meal plan. Continue exercise plan and return to the office in 1 month. Coding Level of Care Code Global (95565) Diagnoses S/P laparoscopic sleeve gastrectomy Z98.84
[2023-09-03 08:14] VITALS: BP 130/64; PULSE 65; TEMP 36.1; O2SAT 100; BMI 33.4
== END 2023-09-03 12:40 | disposition home or self-care (01) ==
PROVIDERS: PCP Internal Medicine; Visit Provider Physician Assistant Surgical
DX: Z98.84 Bariatric surgery status (principal)
CPT/HCPCS: 99024

== ENCOUNTER → 2023-09-03 11:47 | Outpatient (BNVA) | payer OTHER, MEDICAID, SELFPAY | PROVIDERS: PCP Internal Medicine; Visit Provider Physician Assistant Surgical ==

== ENCOUNTER → 2023-10-25 11:56 | Outpatient (BNVA) | payer OTHER, MEDICAID, SELFPAY | PROVIDERS: PCP Internal Medicine; Visit Provider Physician Assistant Surgical ==

== ENCOUNTER 2023-11-02 11:45 | Outpatient (AMB) | payer OTHER, MEDICAID, SELFPAY ==
--- NOTE | 2023-11-02 12:02 | MHC.OFFVISWM ---
VS Expanded 11/02/23 12:12 BP 134/86 Blood Pressure Location Rt brachial Blood Pressure Position Sitting Pulse 74 Pulse Source Pulse Oximeter Temp 97 F Temperature Source Temporal Artery Scan Pulse Oximetry 100 Oxygen Delivery Method Room Air Height 5 ft 6 in Weight 186 lb 9.6 oz BMI 30.1 Body Fat % 33.7 Body Fat Mass 62.8 Fat Free Mass 123.6 Visceral Fat Rating 5.0 Body Water % 47.5 Body Water Mass 88.6 Muscle Mass/Score 117.6 Basal Metabolic Rate/Score 1,700 Intake Visit Reasons: (OV) PO LSG 07/12/23 Allergies No Known Allergies Allergy (Verified 11/02/23 12:14) HPI Comments Details: This?a?33?yo female who is s/p LSG without hiatal hernia repair on?07/12/2023. Presents for 4 month post op visit. Weight today is 186.6 pounds, with a BMI of 30.1. There has been a 115.8 pound weight loss,(initial weight 302.4 pounds) since starting the program on 02/14/2023 reflecting a 38.2% total body weight loss and a weight loss of 65.7 pounds since surgery (operative weight 252.3 pounds) reflecting a 26% TBWL since surgery. No complaints of nausea, emesis, abdominal pain or reflux. Reports infrequent but normal bowel movements every 2-3 days and uses stool softeners regularly. fusion mvi daily Patient states that she is doing very well and wants to change the ZP bar to another bar. Present meal plan includes: Celebrate Rebuild 1 scoops in 8 oz oat milk, 8-10 am, 12-2pm, 6-8 ZP bar 2-4 meal 5 pm 4 forks protein 4 forks veg Drinking 64oz water daily ? Exercise routine includes: PF 500-550 blas daily, treadmill incline 9-15, speed 3.6, elliptical PFSH Medical History Morbid obesity Abdominal pain Abnormal bowel habits Atopic dermatitis Anxiety Depression Body piercing Family history of complication of anesthesia Atopic dermatitis HTN (hypertension) Sleep apnea Surgical History Hx of laparoscopic partial gastrectomy Hx of section Hx of wisdom tooth extraction Family History Mother Hypertension Bipolar 1 disorder Heart murmur Father Bipolar 1 disorder Hypertension Lung cancer Alcohol abuse Son No problems noted. Daughter No problems noted. Social History Household Members: Spouse Are you a primary healthcare applications analyst to a significant other at home: No Do you presently have visiting nurse or other home services: No Alcohol intake: former Patient Tobacco Use Status: Former Tobacco user Tobacco use type: Cigarette Years Smoked: 1 service: No Assessment & Plan Assessment & Plan (1) S/P laparoscopic sleeve gastrectomy: Code(s): Z98.84 - Bariatric surgery status Category: Surgical Plan: Overall, making good progress. She states that she does not like the zone perfect bars and has not been eating them. She additionally feels full at meal time. We discussed the pace of eating and taking small bites. Starting with her protein 1st then vegetables. Additionally, regarding the protein bar, made multiple suggestions including built,fulfil, or celebrate. She states she is tried celebrate in the past and has not liked it. She continues to exercise daily and will do so. Follow-up in the office in 1 month.
[2023-11-02 12:12] VITALS: BP 134/86; PULSE 74; TEMP 36.1; O2SAT 100; BMI 30.1
== END 2023-11-02 12:57 | disposition home or self-care (01) ==
PROVIDERS: PCP Internal Medicine; Visit Provider Physician Assistant Surgical
DX: E66.9 Obesity, unspecified (principal); Z68.30 Body mass index [BMI] 30.0-30.9, adult; Z90.3 Acquired absence of stomach [part of]; Z98.84 Bariatric surgery status
CPT/HCPCS: 99213

== ENCOUNTER → 2023-11-02 11:45 | Outpatient (BNVA) | payer OTHER, MEDICAID, SELFPAY | PROVIDERS: PCP Internal Medicine; Visit Provider Physician Assistant Surgical ==

== ENCOUNTER 2023-12-10 10:45 | Outpatient (AMB) | payer OTHER, MEDICAID, SELFPAY ==
[2023-12-10 10:47] VITALS: BP 120/64; PULSE 68; TEMP 36.2; O2SAT 97; BMI 29.3
--- NOTE | 2023-12-10 10:47 | MHC.OFFVISWM ---
VS Expanded 12/10/23 10:47 BP 120/64 Blood Pressure Location Rt brachial Blood Pressure Position Sitting Pulse 68 Pulse Source Pulse Oximeter Temp 97.2 F Temperature Source Tympanic Pulse Oximetry 97 Oxygen Delivery Method Room Air Height 5 ft 6 in Weight 181 lb 12.8 oz BMI 29.3 Body Fat % 31.9 Body Fat Mass 58.0 Fat Free Mass 123.6 Visceral Fat Rating 5.0 Body Water % 48.8 Body Water Mass 48.8 Muscle Mass/Score 117.6 Basal Metabolic Rate/Score 1,691 Intake Visit Reasons: (OV) PO LSG 07/12/23 License Inspector Required: No Allergies No Known Allergies Allergy (Verified 12/10/23 10:56) Medication List - Last Reconciled 12/10/23 by RENETTA Oliver docusate sodium (Colace) 100 mg PO BID escitalopram oxalate 10 mg PO DAILY fluticasone propionate 50 mcg/actuation 1 spray intranasal DAILY iahxoogpxyea-xqc-aoeh-FA-vit K 45 mg iron- 800 mcg-120 mcg (Bariatric Multivitamins) caps PO HPI Comments Details: This?a?33?yo female who is s/p LSG without hiatal hernia repair on?07/12/2023. Presents for 6 month post op visit. Weight today is 181.8 pounds, with a BMI of 29.3. There has been a 120.6 pound weight loss,(initial weight 302.4 pounds) since starting the program on 02/14/2023 reflecting a 39.8% total body weight loss and a weight loss of 70.5 pounds since surgery (operative weight 252.3 pounds) reflecting a 27.9% TBWL since surgery. No complaints of nausea, emesis, abdominal pain or reflux. Reports infrequent but normal bowel movements every 2-3 days and uses stool softeners regularly. fusion mvi daily Patient states that she is doing very well and wants to change the ZP bar to another bar. Present meal plan includes: Celebrate Rebuild 1 scoops in 8 oz oat milk, 7-9 am, ZP bar 11-1, 2-4 pm meal 5 pm 3 forks protein 3 forks veg another shake 6-8 pm Drinking 64oz water daily ? Exercise routine includes: PF 500-600 blas daily, treadmill incline 9-15, speed 3.6, elliptical Any post op complications: none EDINSON: resolved DM: never HTN: resolved Hyperlipidemia: never GERD:?0-5 scale ??0 = no symptoms ??1 = symptoms noticeable but not bothersome 2 =symptoms bothersome but not daily ? 3 = symptoms bothersome and daily 4 = symptoms affect daily activities 5 = symptoms are incapacitating, unable to do daily activities ? How bad is the heartburn: 0 ? Heartburn while lying down: 0 ? Heartburn when standing up: 0 ? Heartburn after meals: 0 ? Does heartburn change your diet: 0 ? Does heartburn wake you up from sleep: 0 ? Do you have difficulty swallowin ? Do you have pain with swallowin ? If you take medicine for your reflux, does this affect your daily life: 0 Satisfaction with present condition - satisfied or not satisfied: satisfied [facility] Medical History Morbid obesity Abdominal pain Abnormal bowel habits Atopic dermatitis Anxiety Depression Body piercing Family history of complication of anesthesia Atopic dermatitis HTN (hypertension) Sleep apnea Surgical History Hx of laparoscopic partial gastrectomy Hx of section Hx of wisdom tooth extraction Family History Mother Hypertension Bipolar 1 disorder Heart murmur Father Bipolar 1 disorder Hypertension Lung cancer Alcohol abuse Son No problems noted. Daughter No problems noted. Social History Household Members: Spouse Are you a primary transition of care specialist to a significant other at home: No Do you presently have visiting nurse or other home services: No Alcohol intake: former Patient Tobacco Use Status: Former Tobacco user Tobacco use type: Cigarette Years Smoked: 1 service: No Physical Exam Vital Signs: Last Vital Signs Temp 97.2 F 12/10/23 10:47 Pulse 68 12/10/23 10:47 BP 120/64 12/10/23 10:47 Pulse Ox 97 12/10/23 10:47 Oxygen Delivery Method Room Air 12/10/23 10:47 BMI result Body Mass Index 29.3 Const General: cooperative and no acute distress Orientation/consciousness: patient oriented x3 Resp Effort & Inspection: normal respiratory effort Auscultation: clear to auscultation bilaterally Cardio Rate: regular rate Rhythm: regular rhythm GI Inspection: Yes normal to inspection and Yes incision (well healed) Palpation (GI): Soft to palpation and no masses Neuro General: patient oriented x3 Assessment & Plan Assessment & Plan (1) S/P laparoscopic sleeve gastrectomy: Code(s): Z98.84 - Bariatric surgery status Category: Surgical Plan: Patient is now six-month postoperative. She has started a new meal plan as listed above, recommended by Dr. Rodriguez. She is just starting this today. She will contact me with any questions or concerns regarding the new meal plan. She certainly may additionally contact him if she wishes. We will check six-month postop labs. She is doing very well with her exercise program. She has been able to resolve her sleep apnea and hypertension through her extensive weight loss of approximately 120 lb since starting the program in 02/21/2023. She is additionally lost 70 lb since surgery. She is very happy with her current progress and wishes to continue. Orders: Orders Insulin Today I10 - Essential (primary) hypertension, Z98.84 - Bariatric surgery status Vitamin B12 and Folate Today I10 - Essential (primary) hypertension, Z98.84 - Bariatric surgery status Zinc Today I10 - Essential (primary) hypertension, Z98.84 - Bariatric surgery status TSH reflex Free T4 Today I10 - Essential (primary) hypertension, Z98.84 - Bariatric surgery status Vitamin D 25-OH Total Today I10 - Essential (primary) hypertension, Z98.84 - Bariatric surgery status Hemoglobin A1c Today I10 - Essential (primary) hypertension, Z98.84 - Bariatric surgery status Complete Blood Count Auto Diff Today I10 - Essential (primary) hypertension, Z98.84 - Bariatric surgery status Lipid Panel Today I10 - Essential (primary) hypertension, Z98.84 - Bariatric surgery status IRON PROFILE Today I10 - Essential (primary) hypertension, Z98.84 - Bariatric surgery status Comprehensive Met. Panel Today I10 - Essential (primary) hypertension, Z98.84 - Bariatric surgery status C Reactive Protein Today I10 - Essential (primary) hypertension, Z98.84 - Bariatric surgery status Vitamin B1 Today I10 - Essential (primary) hypertension, Z98.84 - Bariatric surgery status Vitamin A Today I10 - Essential (primary) hypertension, Z98.84 - Bariatric surgery status Ferritin Today I10 - Essential (primary) hypertension, Z98.84 - Bariatric surgery status
== END 2023-12-10 11:18 | disposition home or self-care (01) ==
PROVIDERS: PCP Internal Medicine; Visit Provider Physician Assistant Surgical
DX: E66.3 Overweight (principal); Z68.29 Body mass index [BMI] 29.0-29.9, adult; Z90.3 Acquired absence of stomach [part of]; Z98.84 Bariatric surgery status
CPT/HCPCS: 99214

== ENCOUNTER → 2023-12-10 10:45 | Outpatient (BNVA) | payer OTHER, MEDICAID, SELFPAY | PROVIDERS: PCP Internal Medicine; Visit Provider Physician Assistant Surgical ==

== ENCOUNTER 2023-12-13 07:33 | Outpatient (REF) | payer OTHER, SELFPAY ==
[2023-12-13 07:53] LABS: MANUAL DIFF FLAG NO
[2023-12-13 08:40] LABS: Basophils Percent Auto 0.4 % (0-2); Eosinophils Absolute Auto 0.1 X10*3/uL (0.0-0.4); Eosinophils Percent Auto 1.3 % (0-4); Hemoglobin 12.8 g/dl (12.0-16.0); Imm Gran Abs Auto 0.03 X10*3/uL (0.00-0.03); Imm Gran Pct Auto 0.4 % (0.0-0.4); Lymphocytes Percent Auto 28.9 % (20-40); Mean Corpuscular HGB Conc 34.6 g/dl (31.0-35.0); Mean Corpuscular Volume 89.6 fL (80.0-98.0); Mean Platelet Volume 10.1 fL (9.4-12.3); Monocytes Absolute Auto 0.4 X10*3/uL (0.1-1.2); Monocytes Percent Auto 5.4 % (2-11); Neutrophils Absolute Auto 4.3 x10*3/uL (2.0-8.3); Neutrophils Percent Auto 63.6 % (45-73); Platelet Count 343 X10*3/uL (160-400); Red Blood Count 4.13 X10*6/uL (4.20-5.50); Red Cell Distribution Width 12.4 % (11.0-16.0); White Blood Count 6.8 X10*3/uL (4.8-10.8)
[2023-12-13 08:51] LABS: Estimated Average Glucose 94 mg/dL; Hemoglobin A1c % 4.9 % (<6.0)
[2023-12-13 09:19] LABS: Alanine Aminotransferase 10 U/L (0-31); Albumin Level 3.9 g/dL (3.5-5.0); Alkaline Phosphatase 59 U/L (39-117); Anion Gap 11 (12-20); Aspartate Amino Transferase 11 U/L (5-31); Bilirubin Total 0.5 mg/dL (0.0-1.0); Blood Urea Nitrogen 13 mg/dL (9-16); C Reactive Protein 0.89 mg/dL (< or = 0.50); Calcium 9.7 mg/dL (8.4-10.2); Carbon Dioxide 27 mmol/L (22-29); Chloride 107 mmol/L (96-108); Cholesterol 117 mg/dL (<200); Estimated Glomerular Filt Rate > 60; Glucose Random 76 mg/dL (60-115); HDL Cholesterol 38 mg/dL (>40); Iron 89 mcg/dL (30-160); LDL Cholesterol Calculated 62 mg/dL (<100); Percent Iron Saturation 35 % (15-50); Potassium 4.5 mmol/L (3.3-5.1); Sodium 140 mmol/L (135-145); Total Iron Binding Capacity 251 mcg/dL (228-428); Triglycerides 87 mg/dL (<150); Unsaturated Iron Binding 162 ug/dL
[2023-12-13 09:27] LABS: Ferritin 44 ng/mL (10-122); Insulin 3 uU/mL (2-29); Vitamin D 25-OH Total 59.5 ng/mL (>30)
[2023-12-13 09:34] LABS: Folate 11.2 ng/mL (> or = 4.0); Vitamin B12 366 pg/mL (200-900)
[2023-12-17 03:53] LABS: Vitamin A 58 mcg/dL (38-98)
[2023-12-17 16:14] LABS: Zinc 54 mcg/dL (60-130)
[2023-12-20 14:48] LABS: Vitamin B1 14 nmol/L (8-30)
== END 2023-12-13 07:34 | disposition home or self-care (01) ==
LOC: HO.LAB 07:33
PROVIDERS: PCP Internal Medicine; Visit Provider Physician Assistant Surgical
DX: Z13.1 Encounter for screening for diabetes mellitus (principal); I10 Essential (primary) hypertension; Z98.84 Bariatric surgery status
CPT/HCPCS: 36415; 80053; 80061; 82306; 82607; 82728; 82746; 83036; 83525; 83540; 84425; 84443; 84590; 84630; 85025; 86140

== ENCOUNTER → 2024-01-10 08:07 | Outpatient (BNVA) | payer OTHER, SELFPAY | PROVIDERS: PCP Internal Medicine; Visit Provider Physician Assistant Surgical | DX: Z98.84 Bariatric surgery status (principal); I10 Essential (primary) hypertension ==

== ENCOUNTER 2024-01-10 08:09 | Outpatient (AMB) | payer OTHER, SELFPAY ==
[2024-01-10 08:11] VITALS: BP 119/74; PULSE 75; TEMP 36; O2SAT 99; BMI 29.3
--- NOTE | 2024-01-10 08:11 | A.OFFVIS_ITS ---
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 Presents for 6 month post op visit. Weight today is 181.4 pounds, with a BMI of 29.3. There has been a 121 pound weight loss,(initial weight 302.4 pounds) since starting the program on 02/14/2023 reflecting a 39.8% total body weight loss and a weight loss of 70.9 pounds since surgery (operative weight 252.3 pounds) reflecting a 27.9% TBWL since surgery. No complaints of nausea, emesis, abdominal pain or reflux. Reports infrequent but normal bowel movements every 2- 3 days and uses stool softeners regularly. fusion mvi daily She states that she has not been using the Tresata perfect bars. She has been using Prediculous granola bars in place of this. She additionally states that she has been under significant amount of stress lately. She has noticed hair loss, lesions at the left corner of her mouth and some mild lower facial acne. She has also had difficulty with recurrent left pink eye. Despite this adversity, she continues to go to the gym daily. Patient states that she is doing very well and wants to change the ZP bar to another bar. Present meal plan includes: Celebrate Rebuild 1 scoops in 8 oz oat milk, 7-9 am, ZP bar 11-1, 2-4 pm meal 5 pm 3 forks protein 3 forks veg another shake 6-8 pm Drinking 64oz water daily ? Exercise routine includes: PF 500-600 blas daily, treadmill incline 9-15, speed 3.6, elliptical Any post op complications: none EDINSON: resolved DM: never HTN: resolved Hyperlipidemia: never GERD:?0-5 scale ??0 = no symptoms ??1 = symptoms noticeable but not bothersome 2 =symptoms bothersome but not daily ? 3 = symptoms bothersome and daily 4 = symptoms affect daily activities 5 = symptoms are incapacitating, unable to do daily activities ? How bad is the heartburn: 0 ? Heartburn while lying down: 0 ? Heartburn when standing up: 0 ? Heartburn after meals: 0 ? Does heartburn change your diet: 0 ? Does heartburn wake you up from sleep: 0 ? Do you have difficulty swallowin ? Do you have pain with swallowin ? If you take medicine for your reflux, does this affect your daily life: 0 Satisfaction with present condition - satisfied or not satisfied: satisfied [facility] Medical History Morbid obesity Abdominal pain Abnormal bowel habits Atopic dermatitis Anxiety Depression Body piercing Family history of complication of anesthesia Atopic dermatitis HTN (hypertension) Sleep apnea Surgical History Hx of laparoscopic partial gastrectomy Hx of section Hx of wisdom tooth extraction Family History Mother Hypertension Bipolar 1 disorder Heart murmur Father Bipolar 1 disorder Hypertension Lung cancer Alcohol abuse Son No problems noted. Daughter No problems noted. Social History Household Members: Spouse Are you a primary child care provider to a significant other at home: No Do you presently have visiting nurse or other home services: No Alcohol intake: former Patient Tobacco Use Status: Former Tobacco user Tobacco use type: Cigarette Years Smoked: 1 service: No Physical Exam Vital Signs: Last Vital Signs Temp 96.8 F 01/10/24 08:11 Pulse 75 01/10/24 08:11 BP 119/74 01/10/24 08:11 Pulse Ox 99 01/10/24 08:11 Oxygen Delivery Method Room Air 01/10/24 08:11 BMI result Body Mass Index 29.3 Const General: healthy appearing and no acute distress Resp Effort & Inspection: normal respiratory effort Auscultation: clear to auscultation bilaterally Cardio Rate: regular rate Rhythm: regular rhythm GI Auscultation: normal bowel sounds Extrem General: Yes normal to inspection Assessment & Plan Assessment & Plan (1) Overweight (BMI 25.0-29.9): Code(s): E66.3 - Overweight Category: Medical Plan: Given patient's current concepts of what she wants to do for her meal plan, avoiding the [employer] [place] bar, she is willing to use a [employer] protein bar we will change her meal plan accordingly: Celebrate rebuild 2 scoops in 10-12 oz of unsweetened 0 milk at 07:29 Quest bar noon to 2 Meal at 5, 4 forks protein and 4 forks vegetables Celebrate rebuild 1 scoop in 8-10 oz of 0 milk at 729 Continue aggressive exercise at the gym. Encouraged to text weekly with her weight and with any questions or concerns. She states she is scheduled to go on vacation to [place] next week and will bring her protein shakes. Encouraged to go to the gym in the hotel in the morning and enjoy her vacation, texting with any questions or concerns while away.
== END 2024-01-10 08:56 | disposition home or self-care (01) ==
PROVIDERS: PCP Internal Medicine; Visit Provider Physician Assistant Surgical
DX: E66.3 Overweight (principal)
CPT/HCPCS: 99213

== ENCOUNTER 2024-07-09 08:37 | Outpatient (REF) | payer OTHER, SELFPAY ==
--- OUTSIDE RECORDS SUMMARY | 2024-07-09 09:33 | XMS_ITS | Clinical Summary ---
Author Organization [facility] it Address [address] [place] [address] Care Team Providers Care Backup Administrator Name Role Phone Merry Hawk MD Primary Care Prov ider Allergies No known active allergies Medications Medication Sig Dispensed Refills Start Date End Date Status vit B complx/folic acid/lysine (B COMPLEX VITAMINS PO) Take by mouth. Active VITAMIN A ORAL Take 1 capsule by mouth 1 (one) time each day. 05/29/2023 Active fluticasone propion-salmetero L (ADVAIR HFA) 115-21 mcg/actuation inhaler INHALE 2 PUFFS INTO THE LUNGS 2 TIMES DAILY FOR 360 DAYS. 11/06/2022 Active fluticasone propionate (FLONASE) 50 mcg/actuation nasal spray 2 Sprays by Nasal route daily. 03/07/2022 Active albuterol HFA (PROAIR HFA ; PROVENTIL HFA ; VENTOLIN HFA) 90 mcg/actuation inhaler Inhale 2 Puffs into the lungs 4 times daily as needed for Cough or Wheezing. 03/07/2022 Active HYDROXYZINE HCL ORAL Take by mouth as needed. Active Blisovi Fe 06/23, 28, 1 mg-20 mcg (21)/75 mg (7) per tablet TAKE 1 TABLET BY MOUTH DAILY 84 tablet 1 07/01/2024 Active norethindrone-eth inyl estradiol (JUNEL FE 06/23) 1 mg-20 mcg (21)/75 mg (7) per tablet Take 1 Tablet by mouth daily for 360 days. 12/26/2023 07/01/2024 Discontinued Active Problems Problem Noted Date Diagnosed Date Fatty liver 03/07/2022 Obstructive sleep apnea 10/03/2021 Overview (03/14/2024): [facility] diagnostic polysomnogram/06/2021; weight 305; BMI 49. AHI 8; REM AHI 23. 1 central apnea, 1 obstructive apnea and 53 hypopneas. Average oxygen saturation 94% with oxygen yashira 88%. PLM 0. Obstructive sleep apnea-mild overall but moderate in rem sleep with mostly hypopneas and without nocturnal hypoxemia based on 2021 diagnostic polysomnogram. Gastroesophageal reflux disease without esophagi tis 10/22/2019 Eczema 05/06/2018 Essential hypertension 05/06/2018 Anxiety disorder 03/05/2013 Tattoo of skin 03/05/2013 Immunizations Name Administration Dates Next Due HPV, Quadrivalent 06/04/2008,09/03/2007,06/04/19 08 Influenza Quadravalent, MDCK , 0.5ml, preservative free (Flucelvax) 6mo and older 03/23/2021,05/20/2018 Influenza trivalent, with pr eservative (Fluzone; Afluria) 6mo and older 03/09/2022,03/05/2013 Influenza, Unspecified 03/09/2022 Tdap Tetanus diptheria acell ular pertussis (Boostrix; Adacel) 7yo and older 03/05/2013 Surgical History Surgery Date Site/Laterality Comments SECTION 08/11/2017 PROCEDURE: NM DELIVERY ONLY WISDOM TOOTH EXTRACTION PROCEDURE: HISTORICAL WISDOM TEETH EXTRACTION BARIATRIC SURGERY 07/12/2023 PROCEDURE: NM LAPS GSTRC RSTRICTIV PX LONGITUDINAL GASTRECTOMY Medical History Medical History Date Comments Anxiety DX:Anxiety; COMM ENT: well controlled Hypertension DX:Hypertension Morbid obesity (CMS/HCC) DX:Morb id obesity (HCC) Family History Medical History Relation Name Comments No Known Problems Brother Asthma Father Hypertension Father Lung cancer Father Asthma Mother Brain Aneurysm Mother Heart attack Mother Hypertension Mother Diabetes Mother's side uncles Diabetes Paternal Grandmother Breast cancer Neg Hx Colon cancer Neg Hx Ovarian cancer Neg Hx Pancreatic cancer Neg Hx Uterine cancer Neg Hx Relation Name Status Comments Brother Alive Father Alive Mother 07/2012: unclear cause Mother's side Paternal Grandmother Social History Tobacco Use Types Packs/Day Years Used Date Smoking Tobacco: Former Smokeless Tobacco: Never Alcohol Use Standard Drinks/Week Comments Yes 0 (1 standard drink = 0.6 oz pur e alcohol) Sex and Gender Information Value Date Recorded Sex Assigned at Not on file Gender Identity Not on file Sexual Orientation Not on file Obstetrics History Last Filed Vital Signs Vital Sign Reading Time Taken Comments Blood Pressure 108/78 10/12/2023 10:59 AM EDT Pulse 68 10/12/2023 10:59 AM EDT Temperature - - Respiratory Rate - - Oxygen Saturation - - Inhaled Oxygen Concentration - - Weight 88.5 kg (195 lb) 10/12/2023 10:59 AM EDT Height 167.6 cm (5' 6 ) 10/12/2023 10:59 AM EDT Body Mass Index 31.47 10/12/2023 10:59 AM EDT Plan of Treatment Upcoming Encounters Date Type Department Care Team (Late st Contact Info) Description 09/16/2024 9:00 AM EDT Office Visit Adult Medicine - [place] [address] [place] [address] Marsha Anderson PA [address] [place] [address] 09/19/2024 3:30 PM EDT Office Visit Obstetrics and Gynecology - [place] [address] [place] [id number] Leroy Jiang CN [address] [place] [address] Health Maintenance Due Date Last Done Comments Pneumococcal Vaccine: Pediatrics (0 to 5 Years) and At-Risk Patients (6 to 64 Years) (1 of 2 - PCV) 01/28/1998 Hepatitis B Vaccines (1 of 3 - 19+ 3-dose series) 01/28/2011 HIV Screening 05/13/2022 Social Influencers of Health Screening 05/13/2022 DTaP,Tdap,and Td Vaccines (2 - Td or Tdap) 03/05/2023 03/05/2013 Hypertension/CHF/CAD Annual BMP Blood Test 01/12/2024 01/11/2023 COVID-19 Vaccine ( season) 2024 06/01/2021, 10/22/2020, 09/24/2020 Influenza Vaccine (#1) 2024 2, 03/09/2022, 03/23/2021, Additional history exists Depression Screening 10/11/2024 10/12/2023 Cervical Cancer Screening: HPV 05/12/2027 05/12/2022 Cholesterol Screening (Lipid Panel) 01/12/2028 01/11/2023 HPV Vaccines Completed 06/04/2008, 04/0 06/2007, 06/04/2007 Hepatitis C Screening Completed 03/05/2013 HIB Vaccines Aged Out No longer eligi ble based on patient's age to complete this topic Hepatitis A Vaccines Aged Out No long er eligible based on patient's age to complete this topic IPV Vaccines Aged Out No longer eligi ble based on patient's age to complete this topic MMR Vaccines Aged Out No longer eligi ble based on patient's age to complete this topic Meningococcal ACWY Vaccine Aged Out N o longer eligible based on patient's age to complete this topic RSV Immunization Patients Under 20 months Aged Out No longer eligible based on patient's age to complete this topic Varicella Vaccines Aged Out No longer eligible based on patient's age to complete this topic Procedures Procedure Name Priority Date/Time Associated Diagnosis Comments DEPRESSION SCREENING Routine 10/12/2023 ANNUAL BMP BLOOD TEST Routine 01/11/2023 LIPID PANEL Routine 01/11/2023 HPV Routine 05/12/2022 HEPATITIS C SCREENING Routine 03/05/2013 from Last 3 Months or Most Recently Relevant to Health Maintenance Results * Depression Screening (10/12/2023) Depression Screening ABSTRACTED Historical Provider MD AMINATA HORTA E * Annual BMP Blood Test (01/11/2023) Annual BMP Blood Test ABSTRACTED Historical Provider MD AMINATA HORTA E * Lipid panel (01/11/2023) LDL/HDL Ratio 3 0 - 4 Triglycerides 115 0 - 150 mg/dL Cholesterol 112 0 - 200 mg/dL HDL 41 40 mg/dL LDL Cholesterol 48 0 - 100 mg/dL Blood Venous blood specimen / Unknown Historical Provider LAB BLOOD ORDERAB LES * Cervical Cancer Screening: HPV (05/12/2022) [facility]ologist [facility] Cervical Cancer Screening: HPV negative,a bstracted Historical Provider MD AMINATA Edge * Hepatitis C Screening (03/05/2013) [facility]ologist [facility] Hepatitis C Screening ABSTRACTED Historical Provider MD AMINATA Edge from Last 3 Months or Most Recently Relevant to Health Maintenance Care Teams Backup Administrator Relationship Specialty Start Date End Date Merry Hawk MD [address] [place] [id number] PCP - General Internal Medicine 06/11/24
[2024-07-09 10:38] LABS: Influenza A PCR NEGATIVE (Negative); Influenza B PCR NEGATIVE (Negative); Resp Syncy Virus RNA Qual PCR NEGATIVE (Negative); SARS COV2 PCR INHOUSE NEGATIVE (Negative)
== END 2024-07-09 08:38 | disposition home or self-care (01) ==
LOC: HO.LAB 08:37
PROVIDERS: PCP Internal Medicine; Visit Provider Physician Assistant
DX: J06.9 Acute upper respiratory infection, unspecified (principal)
CPT/HCPCS: 0241U; 87070; 87880

== ENCOUNTER 2024-07-18 07:48 | Outpatient (AMB) | payer OTHER, SELFPAY ==
[2024-07-18 07:48] VITALS: BP 136/80; PULSE 68; TEMP 36.6; O2SAT 96; BMI 28.3
--- NOTE | 2024-07-18 07:48 | MHC.OFFVISWM ---
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 Allergies No Known Allergies Allergy (Verified 07/18/24 07:50) Medication List - Last Reconciled 07/18/24 by RENETTA Oliver azithromycin For 250 mg dose pack: take 500 mg today (day 1), then 250 mg for 4 days (days 2-5) PO docusate sodium (Colace) 100 mg PO BID escitalopram oxalate 10 mg PO DAILY fluticasone propionate 50 mcg/actuation 1 spray intranasal DAILY nckguipwmwqv-jvd-qqcy-FA-vit K 45 mg iron- 800 mcg-120 mcg (Bariatric Multivitamins) caps PO norethindrone-e.estradiol-iron 1 mg-20 mcg (21)/75 mg (7) (Blisovi Fe 06/23 ()) tabs PO DAILY sennosides (senna) 17.2 mg (2 x 8.6 mg) PO BEDTIME PRN HPI Comments Details: This?a?34?yo female who is s/p LSG without hiatal hernia repair on?07/12/2023. Presents for 1 year post op visit. Weight today is 175.6 pounds, with a BMI of 28.3. There has been a 126.8 pound weight loss,(initial weight 302.4 pounds) since starting the program on 02/14/2023 reflecting a 41.9% total body weight loss and a weight loss of 76.7 pounds since surgery (operative weight 252.3 pounds) reflecting a 30.4% TBWL since surgery. No complaints of nausea, emesis, abdominal pain or reflux. Reports infrequent but normal bowel movements every 3 days and uses stool softeners regularly. fusion mvi daily She states that she has been under increased stress lately because of newly having to care for her ill grandmother. Additionally, she has noted due to the increased anxiety she has snacks some on some cookies. She has also become complacent with her protein shakes. Sometimes skipping them during the day or substituting them with a meal. She has been using 1 scoop of celebrate rebuild in her shakes. She would sometimes substitute a Quest bar and has been inconsistent in her meal plan. Recommended meal plan includes: Celebrate rebuild 2 scoops in 10-12 oz of unsweetened 0 milk at 07-9 Quest bar noon to 2 Meal at 5, 4 forks protein and 4 forks vegetables Celebrate rebuild 1 scoop in 8-10 oz of 0 milk at 7-9 Drinking 50 oz water daily ? Exercise routine includes: PF 500-600 blas daily, treadmill incline 9-15, speed 3.7, elliptical Any post op complications: none EDINSON: resolved DM: never HTN: resolved Hyperlipidemia: never GERD:?0-5 scale ??0 = no symptoms ??1 = symptoms noticeable but not bothersome 2 =symptoms bothersome but not daily ? 3 = symptoms bothersome and daily 4 = symptoms affect daily activities 5 = symptoms are incapacitating, unable to do daily activities ? How bad is the heartburn: 0 ? Heartburn while lying down: 0 ? Heartburn when standing up: 0 ? Heartburn after meals: 0 ? Does heartburn change your diet: 0 ? Does heartburn wake you up from sleep: 0 ? Do you have difficulty swallowin ? Do you have pain with swallowin ? If you take medicine for your reflux, does this affect your daily life: 0 Satisfaction with present condition - satisfied or not satisfied: satisfied [facility] Medical History Morbid obesity Abdominal pain Abnormal bowel habits Atopic dermatitis Anxiety Depression Body piercing Family history of complication of anesthesia Atopic dermatitis HTN (hypertension) Sleep apnea Surgical History Hx of laparoscopic partial gastrectomy Hx of section Hx of wisdom tooth extraction Family History Mother Hypertension Bipolar 1 disorder Heart murmur Father Bipolar 1 disorder Hypertension Lung cancer Alcohol abuse Son No problems noted. Daughter No problems noted. Social History Household Members: Spouse Are you a primary critical care unit manager to a significant other at home: No Do you presently have visiting nurse or other home services: No Alcohol intake: former Patient Tobacco Use Status: Former Tobacco user Tobacco use type: Cigarette Years Smoked: 1 service: No Physical Exam Vital Signs: Last Vital Signs Temp 97.8 F 07/18/24 07:48 Pulse 68 07/18/24 07:48 BP 136/80 07/18/24 07:48 Pulse Ox 96 07/18/24 07:48 Oxygen Delivery Method Room Air 07/18/24 07:48 BMI result Body Mass Index 28.3 Const General: cooperative and no acute distress Orientation/consciousness: patient oriented x3 Resp Effort & Inspection: normal respiratory effort Auscultation: clear to auscultation bilaterally Cardio Rate: regular rate Rhythm: regular rhythm GI Inspection: Yes normal to inspection and Yes incision (well healed) Palpation (GI): Soft to palpation and no masses Neuro General: patient oriented x3 Assessment & Plan Assessment & Plan (1) S/P laparoscopic sleeve gastrectomy: Code(s): Z98.84 - Bariatric surgery status Category: Surgical Plan: Patient is doing well from an exercise standpoint. She has been inconsistent in her meal plan. She was given information regarding the right BMI nimco. she will return to a more consistent meal plan. Continue exercise plan. We will check yearly labs. Encouraged to send weight is weekly and text with any questions or concerns. Arrange for follow-up in 3 months, sooner should there be any problems or concerns. Additionally, she has been having some issues with constipation and we will add senna at night. Continue multivitamin. Increase water slightly to 60 oz or more per day. Orders: Orders Insulin Today F41.9 - Anxiety disorder, unspecified, G47.33 - Obstructive sleep apnea (adult) (pediatric), I10 - Essential (primary) hypertension, K74.00 - Hepatic fibrosis, unspecified, Z98.84 - Bariatric surgery status Hemoglobin A1c Today F41.9 - Anxiety disorder, unspecified, G47.33 - Obstructive sleep apnea (adult) (pediatric), I10 - Essential (primary) hypertension, K74.00 - Hepatic fibrosis, unspecified, Z98.84 - Bariatric surgery status Complete Blood Count Auto Diff Today F41.9 - Anxiety disorder, unspecified, G47.33 - Obstructive sleep apnea (adult) (pediatric), I10 - Essential (primary) hypertension, K74.00 - Hepatic fibrosis, unspecified, Z98.84 - Bariatric surgery status Lipid Panel Today F41.9 - Anxiety disorder, unspecified, G47.33 - Obstructive sleep apnea (adult) (pediatric), I10 - Essential (primary) hypertension, K74.00 - Hepatic fibrosis, unspecified, Z98.84 - Bariatric surgery status IRON PROFILE Today F41.9 - Anxiety disorder, unspecified, G47.33 - Obstructive sleep apnea (adult) (pediatric), I10 - Essential (primary) hypertension, K74.00 - Hepatic fibrosis, unspecified, Z98.84 - Bariatric surgery status Comprehensive Met. Panel Today F41.9 - Anxiety disorder, unspecified, G47.33 - Obstructive sleep apnea (adult) (pediatric), I10 - Essential (primary) hypertension, K74.00 - Hepatic fibrosis, unspecified, Z98.84 - Bariatric surgery status Vitamin B12 and Folate Today F41.9 - Anxiety disorder, unspecified, G47.33 - Obstructive sleep apnea (adult) (pediatric), I10 - Essential (primary) hypertension, K74.00 - Hepatic fibrosis, unspecified, Z98.84 - Bariatric surgery status Zinc Today F41.9 - Anxiety disorder, unspecified, G47.33 - Obstructive sleep apnea (adult) (pediatric), I10 - Essential (primary) hypertension, K74.00 - Hepatic fibrosis, unspecified, Z98.84 - Bariatric surgery status C Reactive Protein Today F41.9 - Anxiety disorder, unspecified, G47.33 - Obstructive sleep apnea (adult) (pediatric), I10 - Essential (primary) hypertension, K74.00 - Hepatic fibrosis, unspecified, Z98.84 - Bariatric surgery status Vitamin A Today F41.9 - Anxiety disorder, unspecified, G47.33 - Obstructive sleep apnea (adult) (pediatric), I10 - Essential (primary) hypertension, K74.00 - Hepatic fibrosis, unspecified, Z98.84 - Bariatric surgery status Vitamin B1 Today F41.9 - Anxiety disorder, unspecified, G47.33 - Obstructive sleep apnea (adult) (pediatric), I10 - Essential (primary) hypertension, K74.00 - Hepatic fibrosis, unspecified, Z98.84 - Bariatric surgery status TSH reflex Free T4 Today F41.9 - Anxiety disorder, unspecified, G47.33 - Obstructive sleep apnea (adult) (pediatric), I10 - Essential (primary) hypertension, K74.00 - Hepatic fibrosis, unspecified, Z98.84 - Bariatric surgery status Ferritin Today F41.9 - Anxiety disorder, unspecified, G47.33 - Obstructive sleep apnea (adult) (pediatric), I10 - Essential (primary) hypertension, K74.00 - Hepatic fibrosis, unspecified, Z98.84 - Bariatric surgery status Vitamin D 25-OH Total Today F41.9 - Anxiety disorder, unspecified, G47.33 - Obstructive sleep apnea (adult) (pediatric), I10 - Essential (primary) hypertension, K74.00 - Hepatic fibrosis, unspecified, Z98.84 - Bariatric surgery status Medications: New sennosides (senna) 17.2 mg (2 x 8.6 mg) PO BEDTIME PRN 90 tabs 3RF constipation
--- OUTSIDE RECORDS SUMMARY | 2024-07-18 07:49 | XMS_ITS | Clinical Summary ---
Author Organization [facility] it Address [address] [place] [address] Care Team Providers Care Mission Support Specialist Name Role Phone Merry Hawk MD Primary Care Prov ider Allergies No known active allergies Medications vit B complx/folic acid/lysine (B COMPLEX VITAMINS PO) Take by mouth. Active VITAMIN A ORAL Take 1 capsule by mouth 1 (one) time each day. 3 Active fluticasone propion-salmet Shelton (ADVAIR HFA) 115-21 mcg/actuation inhaler INHALE 2 PUFFS INTO THE LUNGS 2 TIMES DAILY FOR 360 DAYS. 3 Active fluticasone propionate (FLONASE) 50 mcg/actuation nasal spray 2 Sprays by Nasal route daily. 2 Active albuterol HFA (PROAIR HFA ; PROVENTIL HFA ; VENTOLIN HFA) 90 mcg/actuation inhaler Inhale 2 Puffs into the lungs 4 times daily as needed for Cough or Wheezing. 2 Active HYDROXYZINE HCL ORAL Take by mouth as needed. Active Blisovi Fe 06/23, 28, 1 mg-20 mcg (21)/75 mg (7) per tablet TAKE 1 TABLET BY MOUTH DAILY 84 tablet 1 5 Active norethindrone- ethinyl estradiol (JUNEL FE 06/23) 1 mg-20 mcg (21)/75 mg (7) per tablet Take 1 Tablet by mouth daily for 360 days. 4 07/01/19 25 Discontinued Active Problems Problem Noted Date Diagnosed Date Fatty liver 03/07/2022 Obstructive sleep apnea 10/03/2021 Overview (03/14/2024): [facility] diagnostic polysomnogram/06/2021; weight 305; BMI 49. [...] Surgery Date Site/Laterality Comments SECTION 08/11/2017 PROCEDURE: [place] DELIVERY ONLY WISDOM TOOTH EXTRACTION PROCEDURE: HISTORICAL WISDOM TEETH EXTRACTION BARIATRIC SURGERY 07/12/2023 PROCEDURE: NV LAPS GSTRC RSTRICTIV PX LONGITUDINAL GASTRECTOMY Medical [...] drink = 0.6 oz pur e alcohol) Comments Unknown Sex and Gender Information Value Date Recorded Sex Assigned at Not on file Legal Sex Female 4:04 PM EST Gender Identity Not on file Sexual Orientation [...] AM EDT Office Visit Adult Medicine - [place] [address] [place] [phone] Marsha Anderson PA [address] [place] [address] 09/19/2024 3:30 PM EDT Office Visit Obstetrics and Gynecology - [place] [address] [place] [address] Leroy Jiang CN [address] [place] [address] Health Maintenance Due Date Last Done Comments Hepatitis B Vaccines (1 of 3 - 19+ 3-dose series) 01/28/2011 Pneumococcal Vaccine: Pediatrics (0 to 5 Years) and At-Risk Patients (6 to 64 Years) (1 of 2 - PCV) 01/28/2011 HIV Screening 05/13/2022 Social Influencers of Health Screening 05/13/2022 DTaP,Tdap,and Td Vaccines (2 - Td or Tdap) 03/05/2023 03/05/2013 Hypertension/CHF/CAD Annual BMP Blood Test 01/12/2024 01/11/2023 COVID-19 Vaccine ( season) 2024 06/01/2021, 10/22/2020, 09/24/2020 Influenza Vaccine (#1) 2024 , 03/09/2022, 03/23/2021, Additional history exists Depression Screening 10/11/2024 10/12/2023 Cervical Cancer Screening: HPV 05/12/2027 05/12/2022 Cholesterol Screening (Lipid Panel) 01/12/2028 01/11/2023 HPV Vaccines Completed 06/04/2008, 04/06/2007, 06/04/2007 Hepatitis C Screening Completed 03/05/2013 HIB [...] patient's age to complete this topic Meningococcal B Vacine Aged Out No lo nger eligible based on patient's age to complete [...] (10/12/2023) Depression Screening ABSTRACTED Historical Provider MD HEALTH MAINTENANCE Final Result * Annual BMP Blood Test (01/11/2023) Annual BMP Blood Test ABSTRACTED [facility] Provider HEALTH MAINTENANCE Final Result * Lipid panel (01/11/2023) Pathologist [facility] LDL/HDL Ratio 3 0 - 4 Triglycerides 115 0 - 150 mg/dL Cholesterol 112 0 - 200 mg/dL HDL 41 >=40 mg/dL LDL Cholesterol 48 0 - 100 mg/dL Blood Venous blood specimen / Unknown Result [facility] Provider LAB BLOOD ORDERABLES Jessica l Result * Cervical Cancer Screening: HPV (05/12/2022) Pathologist [facility] Cervical Cancer Screening: HPV negative,a bstracted Result [facility] Provider HEALTH MAINTENANCE Final Result * Hepatitis C Screening (03/05/2013) [facility] Hepatitis C Screening ABSTRACTED [facility] Provider HEALTH MAINTENANCE Final Result from Last 3 Months or Most Recently Relevant to Health Maintenance Care Teams Mission Support Specialist Relationship Specialty Start Date End Date Merry Hawk MD [address] [place] [id number] PCP - General Internal Medicine 06/11/24
== END 2024-07-18 08:17 | disposition home or self-care (01) ==
LOC: HO.HBS 07:48
PROVIDERS: PCP Internal Medicine; Visit Provider Physician Assistant Surgical
DX: E66.3 Overweight (principal); Z68.28 Body mass index [BMI] 28.0-28.9, adult; Z90.3 Acquired absence of stomach [part of]; Z98.84 Bariatric surgery status
CPT/HCPCS: 99214

== ENCOUNTER 2024-09-05 09:53 | Outpatient (AMB) | payer OTHER, SELFPAY ==
--- NOTE | 2024-09-05 10:12 | MHC.WMTHER ---
Intake Intake Visit Reasons: (OV) PO LSG 07/12/23 Allergies No Known Allergies Allergy (Verified 07/18/24 07:50) PFSH Medical History Morbid obesity Abdominal pain Abnormal bowel habits Atopic dermatitis Anxiety Depression Body piercing Family history of complication of anesthesia Atopic dermatitis HTN (hypertension) Sleep apnea Surgical History Hx of laparoscopic partial gastrectomy Hx of section Hx of wisdom tooth extraction Family History Mother Hypertension Bipolar 1 disorder Heart murmur Father Bipolar 1 disorder Hypertension Lung cancer Alcohol abuse Son No problems noted. Daughter No problems noted. Social History Household Members: Spouse Are you a primary career based intervention coordinator to a significant other at home: No Do you presently have visiting nurse or other home services: No Alcohol intake: former Patient Tobacco Use Status: Former Tobacco user Tobacco use type: Cigarette Years Smoked: 1 service: No Behavioral Health Assessment Weight Management Therapy Therapy Notes Details The patient is a 34-year-old woman presenting for her initial behavioral health () visit. She is seeking additional support with her weight loss journey following bariatric surgery in July 2023. She reports a desire for increased accountability and support as she continues working toward her weight loss goals. Additionally, she would like a safe space to process ongoing sources of stress and develop effective strategies to manage her current stress levels. The patient currently attends counseling on a monthly basis but feels it has not been effective in supporting her weight loss efforts. Presenting Concerns Referral Source Self-refered. Reason for referral The patient underwent bariatric surgery on 07/12/2023 and reports ongoing challenges related to her relationship with food. She describes experiencing guilt after eating, intermittent feelings of hunger, periods of perceived restriction, and increased anxiety around food choices Precipitating Event The patient reports a recent comment from a co-worker regarding perceived weight gain, which triggered increased feelings of guilt after eating. Additionally, she is experiencing frustration and discouragement as she has not yet reached her target weight of 164 lbs?her lowest weight since undergoing bariatric surgery. Living Situation Current Living Situation Rent At risk of losing current housing? No Satisfied with current living situation? No Comments PT hopes to move soon either renting or buying a home to have more space for her family. She lives with partner and 2 children. Food/Weight/Diet Expectations of change PT had surgery on 07/12/23 Initial weight Pre-op: 302Lbs Pre-surgery weight: Lowest PO: 174Lbs Current weight: 179Lbs Target weight: 164Lbs Current meal plan: None provided by WMP-provider. Exercise: Gym daily. History/Relationship with food Currently Breakfast: @6-8 shake Am drink: ice Tea Lunch: @12, salad PM snack: protein bar or cookie w/ peanut butter. Dinner: @6pm, meat Nigh snack: none Drinks/Liquids: Tea and water. History/Relationship with dieting Bariatric surgery in 07/2023. 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 PT helps care for her grandmother, who has dementia and lives alone. Developmental history and status WNL. Social support Partner, some coworkers, and close friends. Community support None. Yarsani/Spirituality None Cultural/Ethnic information Legal Involvement and History Current or historical involvement with the legal system? None Education Preferred learning style Auditory, Verbal, Written, Learn by doing and Visual Currently enrolled in educational program? 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 Wants help to find employment? No Meaningful activities Family activities, reading, loves tattoos, do her hair. Financial Situation Describe current financial situation Occasional struggle Financial assistance? None Service Service? No Mental Health and Addiction Treatment Current/Past addictive behavior concerns? No Psychiatric history PT has a therapist and a prescriber. Takes escitalopram 10mg. Attends counseling monthly. PT reported a history of agoraphobia, DEEPTI and depression. She is doing better and agoraphobia is under control. Medical and Physical Health Summary Additional Medical History not covered in history None aditional. Sexual History concerns None reported. Physical exam in the last year? Yes Pain Screening Current pain? No Pain in the last few months? No Medications Is the patient compliant with medications? Yes Does the patient have Beckwith Guardian in place? Not applicable Does the patient use complimentary health approaches? No Assessment & Plan Assessment & Plan (1) Adjustment disorder with anxiety: Code(s): F43.22 - Adjustment disorder with anxiety (2) Status post bariatric surgery: Code(s): Z98.84 - Bariatric surgery status Plan The patient will continue attending behavioral health sessions with this provider 1?2 times per month. The treatment plan will focus on the following goals: Improving the patient?s relationship with food by reducing guilt and anxiety associated with eating and food choices. Increasing the patient?s ability to manage stress and emotional triggers without resorting to restrictive or emotionally driven eating behaviors. Enhancing body image acceptance and self-esteem while supporting realistic expectations and continued progress in her weight loss journey. Cognitive Behavioral Therapy (CBT), Cognitive Processing Therapy (CPT), and mindfulness-based interventions will be utilized to support these goals and help the patient build sustainable habits for long-term weight management. Next nimco: 2-4 weeks. Coding Level of Care Code New Pt Psy Diag Eval (12055) Patient Type New Diagnoses Adjustment disorder with anxiety F43.22 Status post bariatric surgery Z98.84 Time Spent (min) 55
--- OUTSIDE RECORDS SUMMARY | 2024-09-05 11:05 | XMS_ITS | Clinical Summary ---
Author Organization [employer] it Address [address] [place] [address] Care Team Providers Care Health Advocate Name Role Phone Merry Hawk MD Primary Care Prov ider Allergies No known active allergies Medications vit B complx/folic acid/lysine (B COMPLEX VITAMINS PO) Take by mouth. Active VITAMIN A ORAL Take 1 capsule by mouth 1 (one) time each day. 05/29/2023 Active fluticasone propion-salmete roL (ADVAIR HFA) 115-21 mcg/actuation inhaler INHALE 2 [...] mouth as needed. Active Blisovi Fe 06/23, , 1 mg-20 mcg (21)/75 mg (7) per tablet TAKE 1 TABLET BY MOUTH DAILY 84 tablet 1 07/01/2024 Active Active Problems Problem Noted Date Diagnosed Date Fatty liver 03/07/2022 Obstructive sleep apnea 10/03/2021 Overview (03/14/2024): [facility] diagnostic polysomnogram/06/2021; weight 305; BMI 49. AHI [...] Surgery Date Site/Laterality Comments SECTION 08/11/2017 PROCEDURE: [place] DELIVERY ONLY WISDOM TOOTH EXTRACTION PROCEDURE: HISTORICAL WISDOM TEETH EXTRACTION BARIATRIC SURGERY 07/12/2023 PROCEDURE: HI LAPS GSTRC RSTRICTIV PX LONGITUDINAL GASTRECTOMY Medical [...] AM EDT Office Visit Adult Medicine - [place] [address] [place] [id number] Marsha Anderson PA [address] [place] [address] 09/19/2024 3:30 PM EDT Office Visit Obstetrics and Gynecology - [place] [address] [place] [address] Leroy Jiang, [facility] [address] [place] [phone] Health Maintenance Due Date Last Done Comments [...] Vaccine ( season) 2024 06/01/2021, 10/22/2020, 09/24/2020 Depression Screening 10/11/2024 10/12/2023 Influenza Vaccine (Season Ended) 2025 03/09/2022, 03/09/2022, 03/23/2021, Additional history exists Cervical Cancer Screening: HPV 05/12/2027 05/12/2022 Cholesterol [...] Health Maintenance Results * Depression Screening (10/12/2023) Pathologist [facility] Depression Screening ABSTRACTED Historical Provider HEALTH MAINTENANCE Final Result * Annual BMP Blood Test (01/11/2023) Pathologist [facility] Annual BMP Blood Test ABSTRACTED us Historical Provider HEALTH MAINTENANCE Final Result * Lipid panel (01/11/2023) Pathologist [facility] LDL/HDL Ratio 3 0 - 4 Triglycerides 115 0 - 150 mg/dL Cholesterol 112 0 - 200 mg/dL HDL 41 >=40 mg/dL LDL Cholesterol 48 0 - 100 mg/dL Blood Venous blood specimen / Unknown Historical Provider LAB BLOOD ORDERABLES Jessica l Result * Cervical Cancer Screening: HPV (05/12/2022) [facility] Cervical Cancer Screening: HPV negative,a bstracted [facility] Provider HEALTH MAINTENANCE Final Result * Hepatitis C Screening (03/05/2013) [facility] Hepatitis C Screening ABSTRACTED [facility] Provider HEALTH MAINTENANCE Final Result from Last 3 Months or Most Recently Relevant to Health Maintenance Insurance [facility] Member Subscriber Plan / Payer (Ef fective 2016-Present) Name:Sophie Peralta Relation to Subscriber:Self Name:Sophie Peralta Payer ID:[id number] Group ID:[id number] Type:Not on file Address: [place] [address] [address] [address] Care Teams Health Advocate Relationship Specialty Start Date End Date Merry Hawk MD [address] [place] [id number] PCP - General Internal Medicine 06/11/24
== END 2024-09-05 11:40 | disposition home or self-care (01) ==
LOC: HO.HBST 09:53
PROVIDERS: PCP Internal Medicine; Visit Provider Counselor Mental Health
DX: F43.22 Adjustment disorder with anxiety (principal); Z98.84 Bariatric surgery status
CPT/HCPCS: 90791

== ENCOUNTER → 2024-09-25 08:20 | Outpatient (BNVA) | payer OTHER, SELFPAY | PROVIDERS: PCP Internal Medicine; Visit Provider Counselor Mental Health ==

== ENCOUNTER → 2024-09-25 08:20 | Outpatient (AMB) | payer OTHER, SELFPAY ==
--- NOTE | 2024-09-25 08:15 | MHC.WMTHER ---
Intake Intake Visit Reasons: VIDEO PO LSG 07/12/23 Allergies No Known Allergies Allergy (Verified 11/06/24 09:06) PFSH Medical History Morbid obesity Abdominal pain Abnormal bowel habits Atopic dermatitis Anxiety Depression Body piercing Family history of complication of anesthesia Atopic dermatitis HTN (hypertension) Sleep apnea Surgical History Hx of laparoscopic partial gastrectomy Hx of section Hx of wisdom tooth extraction Family History Mother Hypertension Bipolar 1 disorder Heart murmur Father Bipolar 1 disorder Hypertension Lung cancer Alcohol abuse Son No problems noted. Daughter No problems noted. Social History Household Members: Spouse Are you a primary grounds caretaker to a significant other at home: No Do you presently have visiting nurse or other home services: No Alcohol intake: former Patient Tobacco Use Status: Former Tobacco user Tobacco use type: Cigarette Years Smoked: 1 service: No Behavioral Health Assessment Weight Management Therapy Therapy Notes Details Subjective: Patient reports experiencing tension headaches and poor sleep over the past several days. She identifies increased stress as a contributing factor to both physical symptoms and emotional discomfort. Objective: Patient attended follow-up session via telehealth. We engaged in active listening and therapeutic dialogue. CBT -based interventions used to focus on identifying stressors and distinguishing between what is within and outside of her control. A coping plan was developed to support stress management and emotional regulation. Assessment/Response: Mental status: Alert and oriented ?4. Mood mildly anxious, affect congruent. Thought process clear and goal-directed. Insight and judgment intact. Risk reported/identified: None. Patient was attentive, responsive, and able to reflect on current challenges. Assessment & Plan Assessment & Plan (1) Adjustment disorder with anxiety: Code(s): F43.22 - Adjustment disorder with anxiety (2) Status post bariatric surgery: Code(s): Z98.84 - Bariatric surgery status Plan Continue building stress management strategies and reinforce use of the individualized coping plan. Follow up in 2 weeks to monitor progress and adjust interventions as needed. Next nimco: 10/09/24 at 2pm, Telehealth. Telehealth Telehealth Telehealth Platform: [facility] Location of provider rendering services: other (Home office. [place], [place]) Location of patient: other ([facility], [place], [place]) Patient Identification confirmed using: Name, : Yes Telehealth method: video Patient verbally consented to treatment: Yes Patient verbally consented to billing insurance company: Yes Patient informed of any privacy concerns related to visit: Yes Minutes spent on Phone/Video with Pt.: 45 Coding Level of Care Code Established Pt Tele Psytx 45 mins (37783) Patient Type Established Diagnoses Adjustment disorder with anxiety F43.22 Status post bariatric surgery Z98.84 Time Spent (min) 45
--- OUTSIDE RECORDS SUMMARY | 2024-09-25 08:38 | XMS_ITS | Clinical Summary ---
Author Organization [facility] [address] [facility] [address] Address [address] [place] [address] Phone Care Team Providers Care Life Skills Trainer Name Role Phone Merry Hawk MD Primary Care Prov ider Allergies No known active allergies Medications fluticasone propionate (FLONASE) 50 mcg/actuation nasal spray 2 Sprays by Nasal route daily. 2 Active albuterol HFA (PROAIR HFA ; PROVENTIL HFA ; VENTOLIN HFA) 90 mcg/actuation inhaler Inhale 2 Puffs into the lungs 4 times daily as needed for Cough or Wheezing. 2 Active Blisovi Fe 06/23, 28, 1 mg-20 mcg (21)/75 mg (7) per tablet TAKE 1 TABLET BY MOUTH DAILY 84 tablet 1 5 Active senna-docusate (PERICOLACE) 8.6-50 mg per tablet Take 1 tablet by mouth 1 (one) time each day. Active senna (SENOKOT) 8.6 mg tablet Take 1 tablet (8.6 mg total) by mouth 1 (one) time each day. Active escitalopram (LEXAPRO) 10 mg tablet Take 1.5 tablets (15 mg total) by mouth 1 (one) time each day. 135 each 1 5 03/15/20 25 Active vit B complx/folic acid/lysine (B COMPLEX VITAMINS PO) Take by mouth. 09/17/19 25 Discontinued VITAMIN A ORAL Take 1 capsule by mouth 1 (one) time each day. 12/26/202 3 09/17/19 25 Discontinued fluticasone propion-salmet Shelton (ADVAIR HFA) 115-21 mcg/actuation inhaler INHALE 2 PUFFS INTO THE LUNGS 2 TIMES DAILY FOR 360 DAYS. 3 09/17/19 25 Discontinued HYDROXYZINE HCL ORAL Take by mouth as needed. 09/17/19 25 Discontinued escitalopram (LEXAPRO) 5 mg tablet Take 1 tablet (5 mg total) by mouth 1 (one) time each day. 4 09/17/19 25 Discontinued escitalopram (LEXAPRO) 10 mg tablet 5 09/17/19 25 Discontinued Active Problems Problem Noted Date Diagnosed Date Fatty liver 03/07/2022 Obstructive sleep apnea 10/03/2021 Overview (03/14/2024): [facility] diagnostic polysomnogram/06/2021; weight 305; BMI 49. [...] Anxiety disorder 03/05/2013 Tattoo of skin 03/05/2013 Encounters Date Type Department Care Team Description 09/16/2024 9:00 AM EDT Office Visit Adult Medicine [address] [id number] Marsha Anderson PA Routine general medical examination at a health care facility (Primary Dx); Essential hypertension; Obstructive sleep apnea; Gastroesophageal reflux disease without esophagitis; Anxiety disorder, unspecified type from Last 3 Months Immunizations Name Administration Dates Next Due HPV, Quadrivalent 06/04/2008,09/03/2007,06/04/19 08 Influenza Quadravalent, MDCK , 0.5ml, preservative free (Flucelvax) 6mo and older 03/23/2021,05/20/2018 Influenza trivalent, with pr eservative (Fluzone; Afluria) 6mo and older 03/09/2022,03/05/2013 Influenza, Unspecified 03/09/2022 Tdap Tetanus diptheria acell ular pertussis (Boostrix; Adacel) 7yo and older 09/16/2024,03/05/2013 Surgical History Surgery Date Site/Laterality Comments SECTION 08/11/2017 PROCEDURE: DC DELIVERY ONLY WISDOM TOOTH EXTRACTION PROCEDURE: HISTORICAL WISDOM TEETH EXTRACTION BARIATRIC SURGERY 07/12/2023 PROCEDURE: DC LAPS GSTRC RSTRICTIV PX LONGITUDINAL GASTRECTOMY Medical History Medical History Date Comments Anxiety DX:Anxiety; COMM ENT: well controlled Hypertension DX:Hypertension Morbid obesity (CMS/HCC V24, CMS/HCC V28) DX:Morbid obesity (HCC) Family History Medical History Relation [...] Date Smoking Tobacco: Former Smokeless Tobacco: Never Tobacco Cessation:Counseling Given: No Alcohol Use Standard Drinks/Week Comments Yes 0 (1 standard drink = 0.6 oz pur e alcohol) Comments Unknown Sex and Gender Information Value Date Recorded Sex Assigned at Not on file Legal Sex Female 4:04 PM EST Gender Identity Not on file Sexual Orientation Not on file Obstetrics History Last Filed Vital Signs Vital Sign Reading Time Taken Comments Blood Pressure 122/88 09/16/2024 9:07 AM EDT Pulse 64 09/16/2024 9:07 AM EDT Temperature 36.9 ??C (98.4 ??F) 09/16/2024 9:07 AM ED T Respiratory Rate - - Oxygen Saturation - - Inhaled Oxygen Concentration - - Weight 81.6 kg (180 lb) 09/16/2024 9:07 AM EDT Height 167.6 cm (5' 6 ) 10/12/2023 10:59 AM EDT Body Mass Index 29.05 10/12/2023 10:59 AM EDT Plan of Treatment Upcoming Encounters Date Type Department Care Team (Late st Contact Info) Description 03/18/2025 8:45 AM EDT Office Visit Adult Medicine - [place] [address] [place] [id number] Marsha Anderson PA [address] [place] [address] Health Maintenance Due Date Last Done Comments Hepatitis B Vaccines (1 of 3 - 19+ 3-dose series) 01/28/2011 Pneumococcal Vaccine: Pediatrics (0 to 5 Years) and At-Risk Patients (6 to 64 Years) (1 of 2 - PCV) 01/28/2011 HIV Screening 05/13/2022 Social Influencers of Health Screening 05/13/2022 COVID-19 Vaccine ( season) 2024 06/01/2021, 10/22/2020, 09/24/2020 Depression Screening 10/11/2024 10/12/2023 Hypertension/CHF/CAD Annual BMP Blood Test 09/16/2025 09/16/2024, 01/11/2023 Cervical Cancer Screening: HPV 05/12/2027 05/12/2022 Cholesterol Screening (Lipid Panel) 09/16/2029 09/16/2024, 01/11/2023 DTaP,Tdap,and Td Vaccines (3 - Td or Tdap) 09/16/2034 09/16/2024, 03/05/2013 HPV Vaccines Completed 06/04/2008, 040 06/2007, 06/04/2007 Hepatitis C Screening Completed 03/05/2013 Influenza Vaccine Completed 03/05/2024, , 03/09/2022, Additional history exists HIB Vaccines Aged Out No longer eligi [...] age to complete this topic Meningococcal B Vaccine Aged Out No l onger eligible based on patient's age to complete this topic RSV Immunization Patients Under 20 months Aged Out No longer eligible based on patient's age to complete this topic Varicella Vaccines Aged Out No longer eligible based on patient's age to complete this topic Procedures Procedure Name Priority Date/Time Associated Diagnosis Comments CBC WITH AUTO DIFFERENTIAL Routine 09/16/2024 9:52 AM EDT Routine general medical examination at a [facility] care facility CBC AND DIFFERENTIAL Routine 09/16/2024 9:52 AM EDT Routine general medical examination at a [facility] care facility COMPREHENSIVE METABOLIC PANEL Routine 09/16/2024 9:52 AM EDT Routine general medical examination at [facility] LIPID PANEL WITH REFLEX TO DIRECT LDL Routine 09/16/2024 9:52 AM EDT Routine [facility] DEPRESSION SCREENING Routine 10/12/2023 HPV Routine 05/12/2022 HEPATITIS C SCREENING Routine 03/05/2013 from Last 3 Months or Most Recently Relevant to Health Maintenance Results * Lipid panel with reflex to direct LDL (09/16/2024 9:52 AM EDT) Cholesterol 151 0 - 200 mg/dL LAB CHEMISTRY METHOD 09/16/2024 1:34 PM EDT [facility] Triglycerides 62 0 - 150 mg/dL LAB CHEMISTRY METHOD 09/16/2024 1:34 PM EDT [facility] HDL 71 >=40 mg/dL LAB CHEMISTRY METHOD 09/16/2024 1:34 PM EDT [facility] LDL Calculated 68 0 - 100 mg/dL LAB CHEMISTRY METHOD 09/16/2024 1:34 PM EDT [facility] VLDL Cholesterol Addison 12.4 mg/dL LAB CHEMISTRY METHOD 09/16/2024 1:34 PM EDT [facility] Non HDL Chol. (LDL+VLDL) 80 <145 mg/dL LAB CHEMISTRY METHOD 09/16/2024 1:34 PM EDT [facility] Chol/HDL Ratio 2.1 0.0 - 4.4 LAB CHEMISTRY METHOD 09/16/2024 1:34 PM T [facility] Blood Venous blood specimen / Unknown Venipuncture / Unknown 09/16/2024 9:52 AM EDT 09/16/2024 9:53 AM EDT us Marsha JACKSON LAB BLOOD ORDERABLES Final Result [facility] [address] [place] [address], * CBC auto differential (09/16/2024 9:52 AM EDT) WBC 6.4 4.8 - 10.8 K/mcL LAB HEMETOLOGY METHOD 09/16/2024 11:56 AM [facility] RBC 4.30 3.80 - 4.80 M/mcL LAB HEMETOLOGY METHOD 09/16/2024 11:56 AM [facility] Hemoglobin 13.3 11.5 - 16.0 g/dL LAB HEMETOLOGY METHOD 09/16/2024 11:56 AM [facility] Hematocrit 39.5 35.0 - 47.0 % LAB HEMETOLOGY METHOD 09/16/2024 11:56 AM [facility] MCV 91.4 79.0 - 98.0 FL LAB HEMETOLOGY METHOD 09/16/2024 11:56 AM [facility] MCH 30.8 27.0 - 32.0 pcg LAB HEMETOLOGY METHOD 09/16/2024 11:56 AM [facility] MCHC 33.7 32.0 - 37.0 g/dL LAB HEMETOLOGY METHOD 09/16/2024 11:56 AM [facility] RDW 12.2 11.0 - 15.0 % LAB HEMETOLOGY METHOD 09/16/2024 11:56 AM [facility] Platelets 299 130 - 400 K/mcL LAB HEMETOLOGY METHOD 09/16/2024 11:56 AM [facility] MPV 10.3 7.0 - 11.0 FL LAB HEMETOLOGY METHOD 09/16/2024 11:56 AM [facility] NRBC 0.0 <1.0 % LAB HEMETOLOGY METHOD 09/16/2024 11:56 AM [facility] NRBC Absolute 0.00 <0.10 K/mcL LAB HEMETOLOGY METHOD 09/16/2024 11:56 AM [facility] Neutrophils Relative 55.1 % LAB HEMETOLOGY METHOD 09/16/2024 11:56 AM [facility] Lymphocytes Relative 33.0 % LAB HEMETOLOGY METHOD 09/16/2024 11:56 AM [facility] Monocytes Relative 7.2 % LAB HEMETOLOGY METHOD 09/16/2024 11:56 AM [facility] Eosinophils Relative 3.6 % LAB HEMETOLOGY METHOD 09/16/2024 11:56 AM [facility] Basophils Relative 0.8 % LAB HEMETOLOGY METHOD 09/16/2024 11:56 AM [facility] Immature Granulocytes Relative 0.3 % LAB HEMETOLOGY METHOD 09/16/2024 11:56 AM [facility] Neutrophils Absolute 3.53 1.50 - 7.00 K/mcL LAB HEMETOLOGY METHOD 09/16/2024 11:56 AM [facility] Lymphocytes Absolute 2.11 1.00 - 5.00 K/mcL LAB HEMETOLOGY METHOD 09/16/2024 11:56 AM [facility] Monocytes Absolute 0.46 0.20 - 1.00 K/[facility] LAB HEMETOLOGY METHOD 09/16/2024 11:56 AM EDT [facility] Eosinophils Absolute 0.23 0.00 - 0.50 K/[facility] LAB HEMETOLOGY METHOD 09/16/2024 11:56 AM EDT [facility] Basophils Absolute 0.05 0.00 - 0.20 K/[facility] LAB HEMETOLOGY METHOD 09/16/2024 11:56 AM EDT [facility] Immature Granulocytes Absolute 0.02 0.00 - 0.03 K[facility] 09/16/2024 11:56 AM EDT [facility] Blood Venous blood specimen / Unknown Venipuncture / Unknown 09/16/2024 9:52 AM EDT 09/16/2024 9:53 AM EDT us Marsha JACKSON LAB BLOOD ORDERABLES Final Result [facility] [address] [place] [address], * Comprehensive metabolic panel (09/16/2024 9:52 AM EDT) Sodium 139 133 - 145 mmol/L LAB CHEMISTRY METHOD 09/16/2024 1:34 PM [facility] Potassium 4.0 3.5 - 5.5 mmol/L LAB CHEMISTRY METHOD 09/16/2024 1:34 PM [facility] Chloride 106 96 - 110 mmol/L LAB CHEMISTRY METHOD 09/16/2024 1:34 PM [facility] CO2 28 21 - 32 mmol/L LAB CHEMISTRY METHOD 09/16/2024 1:34 PM [facility] Anion Gap 5 3 - 11 LAB CHEMISTRY METHOD 09/16/2024 1:34 PM [facility] Glucose 73 70 - 100 mg/dL LAB CHEMISTRY METHOD 09/16/2024 1:34 PM [facility] BUN 11 5 - 25 mg/dL LAB CHEMISTRY METHOD 09/16/2024 1:34 PM [facility] Creatinine 0.68 0.50 - 1.10 mg/dL LAB CHEMISTRY METHOD 09/16/2024 1:34 PM [facility] eGFR 119 >=60 mL/min/1. 73m2 LAB CHEMISTRY METHOD 09/16/2024 1:34 PM [facility] Comment:Calculation based on the??Chronic Kidney Disease Epidemiology Collaboration (CKD-EPI) equation refit??without adjustment for race. BUN/Creatinine Ratio 16.2 LAB CHEMISTRY METHOD 09/16/2024 1:34 PM [facility] Calcium 9.3 8.5 - 10.5 mg/dL LAB CHEMISTRY METHOD 09/16/2024 1:34 PM [facility] AST (SGOT) 20 10 - 42 unit/L LAB CHEMISTRY METHOD 09/16/2024 1:34 PM [facility] ALT (SGPT) 21 10 - 60 unit/L LAB CHEMISTRY METHOD 09/16/2024 1:34 PM [facility] Alkaline Phosphatase 55 42 - 121 unit/L LAB CHEMISTRY METHOD 09/16/2024 1:34 PM [facility] Total Protein 6.9 6.0 - 8.0 g/dL LAB CHEMISTRY METHOD 09/16/2024 1:34 PM [facility] Albumin 3.8 3.2 - 5.0 g/dL LAB CHEMISTRY METHOD 09/16/2024 1:34 PM [facility] Total Bilirubin 0.5 0.0 - 1.4 mg/dL LAB CHEMISTRY METHOD 09/16/2024 1:34 PM [facility] Blood Venous blood specimen / Unknown Venipuncture / Unknown 09/16/2024 9:52 AM EDT 09/16/2024 9:53 AM EDT Marsha JACKSON LAB BLOOD ORDERABLES Final Result [facility] [address] [place] [address], * Depression Screening (10/12/2023) [facility] Depression Screening ABSTRACTED Historical Provider HEALTH MAINTENANCE Final Result * Cervical Cancer Screening: HPV (05/12/2022) [facility] Cervical Cancer Screening: HPV negative,a bstracted Historical Provider HEALTH MAINTENANCE Final Result * Hepatitis C Screening (03/05/2013) [facility] Hepatitis C Screening ABSTRACTED Historical Provider HEALTH MAINTENANCE Final Result from Last 3 Months or Most Recently Relevant to Health Maintenance Insurance [facility] Member Subscriber Plan / Payer (Ef fective 2016-Present) Name:Sophie Ham Relation to Subscriber:Self Name:Sophie Ham Payer ID:[id number] Group ID:[id number] Type:Not on file Address: [address] [facility] [place] [address] [facility] Care Teams Life Skills Trainer Relationship Specialty Start Date End Date Merry Hawk MD [address] [place] [id number] PCP - General Internal Medicine 06/11/24
== END ==
LOC: HO.HBST 08:20
PROVIDERS: PCP Internal Medicine; Visit Provider Counselor Mental Health
DX: F43.22 Adjustment disorder with anxiety (principal); Z98.84 Bariatric surgery status
CPT/HCPCS: 90834

== ENCOUNTER 2024-10-09 14:15 | Outpatient (AMB) | payer OTHER, SELFPAY ==
--- NOTE | 2024-10-09 14:10 | A.OFFWM_ITS ---
Intake Intake Visit Reasons: VIDEO PO LSG 07/12/23 Allergies No Known Allergies Allergy (Verified 11/06/24 09:06) PFSH Medical History Morbid obesity Abdominal pain Abnormal bowel habits Atopic dermatitis Anxiety Depression Body piercing Family history of complication of anesthesia Atopic dermatitis HTN (hypertension) Sleep apnea Surgical History Hx of laparoscopic partial gastrectomy Hx of section Hx of wisdom tooth extraction Family History Mother Hypertension Bipolar 1 disorder Heart murmur Father Bipolar 1 disorder Hypertension Lung cancer Alcohol abuse Son No problems noted. Daughter No problems noted. Social History Household Members: Spouse Are you a primary childcare director to a significant other at home: No Do you presently have visiting nurse or other home services: No Alcohol intake: former Patient Tobacco Use Status: Former Tobacco user Tobacco use type: Cigarette Years Smoked: 1 service: No Behavioral Health Assessment Weight Management Therapy Therapy Notes Details Subjective: PT reports doing and felling better today. Objective: Patient presented for a follow-up visit via telehealth. Discussed current functioning and ongoing challenges. CBT techniques were used to support habit formation, with the introduction of a behavioral activation plan focused on meal planning, regular exercise, and self-care prioritization. Strategies were tailored to integrate these habits into her workday, including incorporating short walks during breaks. Additionally, stress management techniques were addressed in response to increased workload and family-related stressors. Assessment/Response: * Mental status: WNL. * Risk reported/identified: None Patient was engaged and receptive throughout the session. Assessment & Plan Assessment & Plan (1) Adjustment disorder with anxiety: Code(s): F43.22 - Adjustment disorder with anxiety (2) Status post bariatric surgery: Code(s): Z98.84 - Bariatric surgery status Plan F/up in 6 weeks. Next nimco 11/20/2024 at 2pm, Via Telehealth. Telehealth Telehealth [facility]health [facility] Location of provider rendering services: other (Home office. [place], [place]) Location of patient: other ([facility], [place], [place]) Patient Identification confirmed using: Name, : Yes Telehealth method: video Patient verbally consented to treatment: Yes Patient verbally consented to billing insurance company: Yes Patient informed of any privacy concerns related to visit: Yes Minutes spent on Phone/Video with Pt.: 60 Coding Level of Care Code Established Pt Tele Psytx >53 mins (19127) Patient Type Established Diagnoses Adjustment disorder with anxiety F43.22 Status post bariatric surgery Z98.84 Time Spent (min) 60
--- OUTSIDE RECORDS SUMMARY | 2024-10-09 15:07 | XMS_ITS | Clinical Summary ---
Author Organization [facility] [address] [facility] lding Address [address] [place] [address] Phone Care Team Providers Care Customer Experience Retail Clerk Name Role Phone Merry Hawk MD Primary [...] 03/07/2022 Obstructive sleep apnea 10/03/2021 Overview (03/14/2024): [facility] diagnostic polysomnogram/06/2021; weight 305; BMI 49. [...] 9:00 AM EDT Office Visit Adult Medicine [address] [phone] Marsha Anderson PA Routine general medical examination [...] Surgery Date Site/Laterality Comments SECTION 08/11/2017 PROCEDURE: [place] DELIVERY ONLY WISDOM TOOTH EXTRACTION PROCEDURE: HISTORICAL WISDOM TEETH EXTRACTION BARIATRIC SURGERY 07/12/2023 PROCEDURE: [place] LAPS GSTRC RSTRICTIV PX LONGITUDINAL GASTRECTOMY Medical [...] AM EDT Office Visit Adult Medicine - [place] [address] [place] [phone] Marsha Anderson PA [address] [place] [address] Health Maintenance Due Date Last Done Comments [...] Routine general medical examination at a the [facility] care facility CBC AND DIFFERENTIAL Routine 09/16/2024 9:52 AM EDT Routine general medical examination at a the [facility] care facility COMPREHENSIVE METABOLIC PANEL Routine 09/16/2024 9:52 AM EDT Routine general medical examination at formerly [facility] facility LIPID PANEL WITH REFLEX TO DIRECT LDL Routine 09/16/2024 9:52 AM EDT Routine general medical examination at a [facility] DEPRESSION SCREENING Routine 10/12/2023 HPV Routine 05/12/2022 HEPATITIS C SCREENING Routine 03/05/2013 from Last 3 Months or Most Recently Relevant to Health Maintenance Results * Lipid panel with reflex to direct LDL (09/16/2024 9:52 AM EDT) Cholesterol 151 0 - 200 mg/dL LAB CHEMISTRY METHOD 09/16/2024 1:34 PM EDT [facility] Triglycerides 62 0 - 150 mg/dL LAB CHEMISTRY METHOD 09/16/2024 1:34 PM EDT [facility] HDL 71 >=40 mg/dL LAB CHEMISTRY METHOD 09/16/2024 1:34 PM EDT [facility] LDL Calculated 68 0 - 100 mg/dL LAB CHEMISTRY METHOD 09/16/2024 1:34 PM EDT [facility] VLDL Cholesterol Addison 12.4 mg/dL LAB CHEMISTRY METHOD 09/16/2024 1:34 PM EDT [facility] Non HDL Chol. (LDL+VLDL) 80 <145 mg/dL LAB CHEMISTRY METHOD 09/16/2024 1:34 PM EDT [facility] Chol/HDL Ratio 2.1 0.0 - 4.4 LAB CHEMISTRY METHOD 09/16/2024 1:34 PM T [facility] Blood Venous blood specimen / Unknown Venipuncture / Unknown 09/16/2024 9:52 AM EDT 09/16/2024 9:53 AM EDT us Marsha JACKSON LAB BLOOD ORDERABLES Final Result [facility] [address] [place] [address], * CBC auto differential (09/16/2024 9:52 AM EDT) WBC 6.4 4.8 - 10.8 K/mcL LAB HEMETOLOGY METHOD 09/16/2024 11:56 AM [facility] RBC 4.30 3.80 - 4.80 M/mcL LAB HEMETOLOGY METHOD 09/16/2024 11:56 AM [facility] Hemoglobin 13.3 11.5 - 16.0 g/dL LAB HEMETOLOGY METHOD 09/16/2024 11:56 AM [facility] Hematocrit 39.5 35.0 - 47.0 % LAB HEMETOLOGY METHOD 09/16/2024 11:56 AM [facility] MCV 91.4 79.0 - 98.0 FL LAB HEMETOLOGY METHOD 09/16/2024 11:56 AM [facility] MCH 30.8 27.0 - 32.0 pcg LAB HEMETOLOGY METHOD 09/16/2024 11:56 AM [facility] MCHC 33.7 32.0 - 37.0 g/dL LAB HEMETOLOGY METHOD 09/16/2024 11:56 AM [facility] RDW 12.2 11.0 - 15.0 % LAB HEMETOLOGY METHOD 09/16/2024 11:56 AM [facility] Platelets 299 130 - 400 K/mcL LAB HEMETOLOGY METHOD 09/16/2024 11:56 AM [facility] MPV 10.3 7.0 - 11.0 FL LAB HEMETOLOGY METHOD 09/16/2024 11:56 AM [facility] NRBC 0.0 <1.0 % LAB HEMETOLOGY METHOD 09/16/2024 11:56 AM [facility] NRBC Absolute 0.00 <0.10 K/mcL LAB HEMETOLOGY METHOD 09/16/2024 11:56 AM [facility] Neutrophils Relative 55.1 % LAB HEMETOLOGY METHOD 09/16/2024 11:56 AM [facility] Lymphocytes Relative 33.0 % LAB HEMETOLOGY METHOD 09/16/2024 11:56 AM [facility] Monocytes Relative 7.2 % LAB HEMETOLOGY METHOD 09/16/2024 11:56 AM [facility] Eosinophils Relative 3.6 % LAB HEMETOLOGY METHOD 09/16/2024 11:56 AM [facility] Basophils Relative 0.8 % LAB HEMETOLOGY METHOD 09/16/2024 11:56 AM [facility] Immature Granulocytes Relative 0.3 % LAB HEMETOLOGY METHOD 09/16/2024 11:56 AM [facility] Neutrophils Absolute 3.53 1.50 - 7.00 K/mcL LAB HEMETOLOGY METHOD 09/16/2024 11:56 AM [facility] Lymphocytes Absolute 2.11 1.00 - 5.00 K/mcL LAB HEMETOLOGY METHOD 09/16/2024 11:56 AM [facility] Monocytes Absolute 0.46 0.20 - 1.00 K/[facility] LAB HEMETOLOGY METHOD 09/16/2024 11:56 AM EDT [facility] Eosinophils Absolute 0.23 0.00 - 0.50 K/[facility] LAB HEMETOLOGY METHOD 09/16/2024 11:56 AM EDT [facility] Basophils Absolute 0.05 0.00 - 0.20 K/[facility] LAB HEMETOLOGY METHOD 09/16/2024 11:56 AM EDT [facility] Immature Granulocytes Absolute 0.02 0.00 - 0.03 K/[facility] 09/16/2024 11:56 AM EDT [facility] Blood Venous blood specimen / Unknown Venipuncture / Unknown 09/16/2024 9:52 AM EDT 09/16/2024 9:53 AM EDT us Marsha JACKSON LAB BLOOD ORDERABLES Final Result [facility] [address] [place] [address], * Comprehensive metabolic panel (09/16/2024 9:52 AM EDT) Sodium 139 133 - 145 mmol/L LAB CHEMISTRY METHOD 09/16/2024 1:34 PM [facility] Potassium 4.0 3.5 - 5.5 mmol/L LAB CHEMISTRY METHOD 09/16/2024 1:34 PM [facility] Chloride 106 96 - 110 mmol/L LAB CHEMISTRY METHOD 09/16/2024 1:34 PM [facility] CO2 28 21 - 32 mmol/L LAB CHEMISTRY METHOD 09/16/2024 1:34 PM [facility] Anion Gap 5 3 - 11 LAB CHEMISTRY METHOD 09/16/2024 1:34 PM [facility] Glucose 73 70 - 100 mg/dL LAB CHEMISTRY METHOD 09/16/2024 1:34 PM [facility] BUN 11 5 - 25 mg/dL LAB CHEMISTRY METHOD 09/16/2024 1:34 PM [facility] Creatinine 0.68 0.50 - 1.10 mg/dL LAB CHEMISTRY METHOD 09/16/2024 1:34 PM [facility] eGFR 119 >=60 mL/min/1. 73m2 LAB CHEMISTRY METHOD 09/16/2024 1:34 PM [facility] Comment:Calculation based on the??Chronic Kidney Disease Epidemiology Collaboration (CKD-EPI) equation refit??without adjustment for race. BUN/Creatinine Ratio 16.2 LAB CHEMISTRY METHOD 09/16/2024 1:34 PM [facility] Calcium 9.3 8.5 - 10.5 mg/dL LAB CHEMISTRY METHOD 09/16/2024 1:34 PM [facility] AST (SGOT) 20 10 - 42 unit/L LAB CHEMISTRY METHOD 09/16/2024 1:34 PM [facility] ALT (SGPT) 21 10 - 60 unit/L LAB CHEMISTRY METHOD 09/16/2024 1:34 PM [facility] Alkaline Phosphatase 55 42 - 121 unit/L LAB CHEMISTRY METHOD 09/16/2024 1:34 PM [facility] Total Protein 6.9 6.0 - 8.0 g/dL LAB CHEMISTRY METHOD 09/16/2024 1:34 PM [facility] Albumin 3.8 3.2 - 5.0 g/dL LAB CHEMISTRY METHOD 09/16/2024 1:34 PM [facility] Total Bilirubin 0.5 0.0 - 1.4 mg/dL LAB CHEMISTRY METHOD 09/16/2024 1:34 PM [facility] Blood Venous blood specimen / Unknown Venipuncture / Unknown 09/16/2024 9:52 AM EDT 09/16/2024 9:53 AM EDT Marsha JACKSON LAB BLOOD ORDERABLES Final Result [facility] ([facility] [address] [place] [address], * Depression Screening (10/12/2023) [facility] Depression Screening ABSTRACTED Historical Provider HEALTH MAINTENANCE Final Result * Cervical Cancer Screening: HPV (05/12/2022) [facility] Cervical Cancer Screening: HPV negative,a bstracted Historical Provider HEALTH MAINTENANCE Final Result * Hepatitis C Screening (03/05/2013) [facility] Hepatitis C Screening ABSTRACTED Historical Provider HEALTH MAINTENANCE Final Result from Last 3 Months or Most Recently Relevant to Health Maintenance Insurance [facility] Member Subscriber Plan / Payer (Ef fective 2016-Present) Name:Sophie Ham Relation to Subscriber:Self Name:Sophie Ham Payer ID:[id number] Group ID:[id number] Type:Not on file Address: [address] [facility] [place] [address] [facility] Care Teams Customer Experience Retail Clerk Relationship Specialty Start Date End Date Merry Hawk MD [address] [place] [phone] PCP - General Internal Medicine 06/11/24
== END 2024-10-09 15:09 | disposition home or self-care (01) ==
LOC: HO.HBST 14:15
PROVIDERS: PCP Internal Medicine; Visit Provider Counselor Mental Health
DX: F43.22 Adjustment disorder with anxiety (principal); Z98.84 Bariatric surgery status
CPT/HCPCS: 90837

== ENCOUNTER → 2024-10-09 14:15 | Outpatient (BNVA) | payer OTHER, SELFPAY | PROVIDERS: PCP Internal Medicine; Visit Provider Counselor Mental Health ==

== ENCOUNTER 2024-11-06 07:48 | Outpatient (REF) | payer OTHER, SELFPAY ==
--- OUTSIDE RECORDS SUMMARY | 2024-11-06 07:52 | XMS_ITS | Clinical Summary ---
Author Organization [facility] [address] [facility] l[address] Address [address] [place] [address] Phone Care Team Providers Care Product Marketing Intern Name Role Phone Merry Hawk MD Primary Care Prov ider Allergies No known active allergies Medications fluticasone propionate (FLONASE) 50 mcg/actuation nasal spray 2 Sprays by Nasal route daily. 03/07/2022 Active albuterol HFA (PROAIR HFA ; PROVENTIL HFA ; VENTOLIN HFA) 90 mcg/actuation inhaler Inhale 2 Puffs into the lungs 4 times daily as needed for Cough or Wheezing. 03/07/2022 Active Blisovi Fe 06/23, 28, 1 mg-20 mcg (21)/75 mg (7) per tablet TAKE 1 TABLET BY MOUTH DAILY 84 tablet 1 07/01/2024 Active senna-docusate (PERICOLACE) 8.6-50 mg per tablet Take 1 tablet by mouth 1 (one) time each day. Active senna (SENOKOT) 8.6 mg tablet Take 1 tablet (8.6 mg total) by mouth 1 (one) time each day. Active escitalopram (LEXAPRO) 10 mg tablet Take 1.5 tablets (15 mg total) by mouth 1 (one) time each day. 135 each 1 09/16/2024 Active Active Problems Problem Noted Date Diagnosed Date Fatty liver 03/07/2022 Obstructive sleep apnea 10/03/2021 Overview (03/14/2024): [facility] diagnostic polysomnogram/06/2021; weight 305; BMI 49. AHI [...] 9:00 AM EDT Office Visit Adult Medicine [address] [phone] Marsha Anderson, [place] Routine general medical examination at a health [...] Surgery Date Site/Laterality Comments SECTION 08/11/2017 PROCEDURE: [place] DELIVERY ONLY WISDOM TOOTH EXTRACTION PROCEDURE: HISTORICAL WISDOM TEETH EXTRACTION BARIATRIC SURGERY 07/12/2023 PROCEDURE: [place] LAPS GSTRC RSTRICTIV PX LONGITUDINAL GASTRECTOMY Medical [...] 8:45 AM EDT Office Visit Adult Medicine [facility] [address] [place] [phone] Marsha Anderson PA [address] [place] [address] Health Maintenance Due Date Last Done Comments [...] 09/16/2034 09/16/2024, 03/05/2013 HPV Vaccines Completed 06/04/2008, 0406/2007, 06/04/2007 Hepatitis C Screening Completed 03/05/2013 Influenza [...] EDT Routine general medical examination at a health care facility CBC AND DIFFERENTIAL Routine 09/16/2024 9:52 AM EDT Routine general medical examination at a health care facility COMPREHENSIVE METABOLIC PANEL Routine 09/16/2024 9:52 AM EDT Routine general medical examination at a health care facility LIPID PANEL WITH REFLEX TO DIRECT LDL Routine 09/16/2024 9:52 AM EDT Routine general medical examination at a health care facility HM DEPRESSION SCREENING Routine 10/12/2023 HPV Routine 05/12/2022 HEPATITIS C SCREENING Routine 03/05/2013 from Last 3 Months or Most Recently Relevant to Health Maintenance Results * Lipid panel with reflex to direct LDL (09/16/2024 9:52 AM EDT) Cholesterol 151 0 - 200 mg/dL LAB CHEMISTRY METHOD 09/16/2024 1:34 PM EDT [facility] Triglycerides 62 0 - 150 mg/dL LAB CHEMISTRY METHOD 09/16/2024 1:34 PM EDT [facility] HDL 71 >=40 mg/dL LAB CHEMISTRY METHOD 09/16/2024 1:34 PM EDT [facility] LDL Calculated 68 0 - 100 mg/dL LAB CHEMISTRY METHOD 09/16/2024 1:34 PM EDT [facility] VLDL Cholesterol Addison 12.4 mg/dL LAB CHEMISTRY METHOD 09/16/2024 1:34 PM EDT [facility] Non HDL Chol. (LDL+VLDL) 80 <145 mg/dL LAB CHEMISTRY METHOD 09/16/2024 1:34 PM EDT [facility] Chol/HDL Ratio 2.1 0.0 - 4.4 LAB CHEMISTRY METHOD 09/16/2024 1:34 PM EDT [facility] Blood Venous blood specimen / Unknown Venipuncture / Unknown 09/16/2024 9:52 AM EDT 09/16/2024 9:53 AM EDT us Marsha JACKSON LAB BLOOD ORDERABLES Final Result [facility] [address] [place] [address], [place] [phone] * CBC auto differential (09/16/2024 9:52 AM EDT) [facility] WBC 6.4 4.8 - 10.8 K/mcL LAB HEMETOLOGY METHOD 09/16/2024 11:56 AM [facility] RBC 4.30 3.80 - 4.80 M/mcL LAB HEMETOLOGY METHOD 09/16/2024 11:56 AM [facility] Hemoglobin 13.3 11.5 - 16.0 g/dL LAB HEMETOLOGY METHOD 09/16/2024 11:56 AM [facility] Hematocrit 39.5 35.0 - 47.0 % LAB HEMETOLOGY METHOD 09/16/2024 11:56 AM [facility] MCV 91.4 79.0 - 98.0 FL LAB HEMETOLOGY METHOD 09/16/2024 11:56 AM [facility] MCH 30.8 27.0 - 32.0 pcg LAB HEMETOLOGY METHOD 09/16/2024 11:56 AM [facility] MCHC 33.7 32.0 - 37.0 g/dL LAB HEMETOLOGY METHOD 09/16/2024 11:56 AM [facility] RDW 12.2 11.0 - 15.0 % LAB HEMETOLOGY METHOD 09/16/2024 11:56 AM [facility] Platelets 299 130 - 400 K/mcL LAB HEMETOLOGY METHOD 09/16/2024 11:56 AM [facility] MPV 10.3 7.0 - 11.0 FL LAB HEMETOLOGY METHOD 09/16/2024 11:56 AM [facility] NRBC 0.0 <1.0 % LAB HEMETOLOGY METHOD 09/16/2024 11:56 AM [facility] NRBC Absolute 0.00 <0.10 K/mcL LAB HEMETOLOGY METHOD 09/16/2024 11:56 AM [facility] Neutrophils Relative 55.1 % LAB HEMETOLOGY METHOD 09/16/2024 11:56 AM [facility] Lymphocytes Relative 33.0 % LAB HEMETOLOGY METHOD 09/16/2024 11:56 AM [facility] Monocytes Relative 7.2 % LAB HEMETOLOGY METHOD 09/16/2024 11:56 AM [facility] Eosinophils Relative 3.6 % LAB HEMETOLOGY METHOD 09/16/2024 11:56 AM [facility] Basophils Relative 0.8 % LAB HEMETOLOGY METHOD 09/16/2024 11:56 AM [facility] Immature Granulocytes Relative 0.3 % LAB HEMETOLOGY METHOD 09/16/2024 11:56 AM [facility] Neutrophils Absolute 3.53 1.50 - 7.00 K/mcL LAB HEMETOLOGY METHOD 09/16/2024 11:56 AM [facility] Lymphocytes Absolute 2.11 1.00 - 5.00 K/mcL LAB HEMETOLOGY METHOD 09/16/2024 11:56 AM [facility] Monocytes Absolute 0.46 0.20 - 1.00 K/mcL LAB HEMETOLOGY METHOD 09/16/2024 11:56 AM [facility] Eosinophils Absolute 0.23 0.00 - 0.50 K/mcL LAB HEMETOLOGY METHOD 09/16/2024 11:56 AM [facility] Basophils Absolute 0.05 0.00 - 0.20 K/mcL LAB HEMETOLOGY METHOD 09/16/2024 11:56 AM [facility] Immature Granulocytes Absolute 0.02 0.00 - 0.03 K/mcL LAB HEMETOLOGY METHOD 09/16/2024 11:56 AM [facility] Blood Venous blood specimen / Unknown Venipuncture / Unknown 09/16/2024 9:52 AM EDT 09/16/2024 9:53 AM EDT us Marsha JACKSON LAB BLOOD ORDERABLES Final Result [facility] [address] [place] [address], [place] [phone] * Comprehensive metabolic panel (09/16/2024 9:52 AM EDT) Pathologist [facility] Sodium 139 133 - 145 mmol/L LAB CHEMISTRY METHOD 09/16/2024 1:34 PM [facility] Potassium 4.0 3.5 - 5.5 mmol/L LAB CHEMISTRY METHOD 09/16/2024 1:34 PM [facility] Chloride 106 96 - 110 mmol/L LAB CHEMISTRY METHOD 09/16/2024 1:34 PM [facility] CO2 28 21 - 32 mmol/L LAB CHEMISTRY METHOD 09/16/2024 1:34 PM [facility] Anion Gap 5 3 - 11 LAB CHEMISTRY METHOD 09/16/2024 1:34 PM [facility] Glucose 73 70 - 100 mg/dL LAB CHEMISTRY METHOD 09/16/2024 1:34 PM [facility] BUN 11 5 - 25 mg/dL LAB CHEMISTRY METHOD 09/16/2024 1:34 PM [facility] Creatinine 0.68 0.50 - 1.10 mg/dL LAB CHEMISTRY METHOD 09/16/2024 1:34 PM [facility] eGFR 119 >=60 mL/min/1. 73m2 LAB CHEMISTRY METHOD 09/16/2024 1:34 PM [facility] Comment:Calculation based on the??Chronic Kidney Disease Epidemiology Collaboration (CKD-EPI) equation refit??without adjustment for race. BUN/Creatinine Ratio 16.2 LAB CHEMISTRY METHOD 09/16/2024 1:34 PM EDT [facility] Calcium 9.3 8.5 - 10.5 mg/dL LAB CHEMISTRY METHOD 09/16/2024 1:34 PM EDT [facility] AST (SGOT) 20 10 - 42 unit/L LAB CHEMISTRY METHOD 09/16/2024 1:34 PM [facility] ALT (SGPT) 21 10 - 60 unit/L LAB CHEMISTRY METHOD 09/16/2024 1:34 PM EDT [facility] Alkaline Phosphatase 55 42 - 121 unit/L LAB CHEMISTRY METHOD 09/16/2024 1:34 PM [facility] Total Protein 6.9 6.0 - 8.0 g/dL LAB CHEMISTRY METHOD 09/16/2024 1:34 PM [facility] Albumin 3.8 3.2 - 5.0 g/dL LAB CHEMISTRY METHOD 09/16/2024 1:34 PM [facility] Total Bilirubin 0.5 0.0 - 1.4 mg/dL LAB CHEMISTRY METHOD 09/16/2024 1:34 PM [facility] Blood Venous blood specimen / Unknown Venipuncture / Unknown 09/16/2024 9:52 AM EDT 09/16/2024 9:53 AM EDT Mrasha JACKSON LAB BLOOD ORDERABLES Final Result [facility] [address] [place] [address], * Depression Screening (10/12/2023) Depression Screening ABSTRACTED Historical Provider HEALTH MAINTENANCE Final Result * Cervical Cancer Screening: HPV (05/12/2022) Cervical Cancer Screening: HPV negative,a bstracted Historical Provider HEALTH MAINTENANCE Final Result * Hepatitis C Screening (03/05/2013) Hepatitis C Screening ABSTRACTED Historical Provider HEALTH MAINTENANCE Final Result from Last 3 Months or Most Recently Relevant to Health Maintenance Insurance [facility] Member Subscriber Plan / Payer (Ef fective 2016-Present) Name:Sophie Ham Relation to Subscriber:Self Name:Sophie Ham Payer ID:[id number] Group ID:[id number] Type:Not on file Address: [address] [place] [address] [facility]ARA[facility]ERRACE [place] [facility] Care Teams Product Marketing Intern Relationship Specialty Start Date End Date Merry Hawk MD [address] [place] [phone] PCP - General Internal Medicine 06/11/24
[2024-11-06 08:02] LABS: MANUAL DIFF FLAG NO
[2024-11-06 08:53] LABS: Basophils Percent Auto 0.5 % (0-2); Eosinophils Absolute Auto 0.2 X10*3/uL (0.0-0.4); Eosinophils Percent Auto 5.9 % (0-4); Hematocrit 42.4 % (37.0-47.0); Hemoglobin 14.4 g/dl (12.0-16.0); Imm Gran Abs Auto 0.01 X10*3/uL (0.00-0.03); Imm Gran Pct Auto 0.3 % (0.0-0.4); Lymphocytes Absolute Auto 0.8 X10*3/uL (1.2-4.9); Lymphocytes Percent Auto 20.5 % (20-40); Mean Corpuscular Hemoglobin 29.9 pg (27.0-33.0); Mean Platelet Volume 9.7 fL (9.4-12.3); Monocytes Absolute Auto 0.4 X10*3/uL (0.1-1.2); Monocytes Percent Auto 10.1 % (2-11); Neutrophils Absolute Auto 2.4 x10*3/uL (2.0-8.3); Neutrophils Percent Auto 62.7 % (45-73); Platelet Count 269 X10*3/uL (160-400); Red Blood Count 4.82 X10*6/uL (4.20-5.50); Red Cell Distribution Width 11.7 % (11.0-16.0); White Blood Count 3.8 X10*3/uL (4.8-10.8)
[2024-11-06 09:02] LABS: Estimated Average Glucose 88 mg/dL; Hemoglobin A1c % 4.7 % (<6.0)
[2024-11-06 09:28] LABS: Alanine Aminotransferase 18 U/L (0-31); Albumin Level 4.3 g/dL (3.5-5.0); Alkaline Phosphatase 55 U/L (39-117); Anion Gap 12 (12-20); Aspartate Amino Transferase 23 U/L (5-31); Bilirubin Total 0.8 mg/dL (0.0-1.0); Blood Urea Nitrogen 15 mg/dL (9-16); Calcium 9.4 mg/dL (8.4-10.2); Carbon Dioxide 28 mmol/L (22-29); Chloride 107 mmol/L (96-108); Cholesterol 150 mg/dL (<200); Estimated Glomerular Filt Rate > 60; Glucose Random 72 mg/dL (60-115); HDL Cholesterol 66 mg/dL (>40); Iron 227 mcg/dL (30-160); LDL Cholesterol Calculated 74 mg/dL (<100); Percent Iron Saturation 81 % (15-50); Potassium 3.8 mmol/L (3.3-5.1); Sodium 143 mmol/L (135-145); Total Iron Binding Capacity 279 mcg/dL (228-428); Total Protein 7.1 g/dL (6.5-8.0); Triglycerides 51 mg/dL (<150); Unsaturated Iron Binding 52 ug/dL
[2024-11-06 09:44] LABS: Ferritin 63 ng/mL (10-122); TSH reflex Free T4 0.56 uIU/mL (0.32-4.0); Vitamin D 25-OH Total 60.6 ng/mL (>30)
[2024-11-06 09:53] LABS: Folate 13.4 ng/mL (> or = 4.0); Vitamin B12 786 pg/mL (200-900)
[2024-11-06 10:36] LABS: Insulin 10 uU/mL (2-29)
[2024-11-10 05:44] LABS: Zinc 65 mcg/dL (60-130)
[2024-11-11 14:14] LABS: Vitamin B1 46 nmol/L (8-30)
[2024-11-11 16:24] LABS: Vitamin A 58 mcg/dL (38-98)
== END 2024-11-06 07:49 | disposition home or self-care (01) ==
LOC: HO.LAB 07:48
PROVIDERS: PCP Internal Medicine; Visit Provider Physician Assistant Surgical
DX: F41.9 Anxiety disorder, unspecified (principal); K74.00 Hepatic fibrosis, unspecified; G47.33 Obstructive sleep apnea (adult) (pediatric); I10 Essential (primary) hypertension; Z98.84 Bariatric surgery status; Z13.1 Encounter for screening for diabetes mellitus
CPT/HCPCS: 36415; 80053; 80061; 82306; 82607; 82728; 82746; 83036; 83525; 83540; 84425; 84443; 84590; 84630; 85025; 86140

== ENCOUNTER 2024-11-06 08:50 | Outpatient (AMB) | payer OTHER, SELFPAY ==
[2024-11-06 08:32] VITALS: PULSE 81; TEMP 36.7; O2SAT 99; BMI 28.4
--- NOTE | 2024-11-06 08:32 | MHC.OFFVISWM ---
VS Expanded 11/06/24 08:32 Pulse 81 Pulse Source Pulse Oximeter Temp 98.1 F Temperature Source Temporal Artery Scan Pulse Oximetry 99 Oxygen Delivery Method Room Air Height 5 ft 6 in Weight 176 lb 3.2 oz BMI 28.4 Body Fat % 33.7 Body Fat Mass 59.4 Fat Free Mass 116.8 Visceral Fat Rating 5.0 Body Water % 47.6 Body Water Mass 83.8 Muscle Mass/Score 110.8 Basal Metabolic Rate/Score 1,606 Intake Visit Reasons: OV PO LSG 07/12/23 Allergies No Known Allergies Allergy (Verified 11/06/24 09:06) HPI Comments Details: This?a?34?yo female who is s/p LSG without hiatal hernia repair on?07/12/2023. Presents for 1 year 4 month post op visit. Weight today is 176.2 pounds, with a BMI of 28.4. There has been a 126.2 pound weight loss,(initial weight 302.4 pounds) since starting the program on 02/14/2023 reflecting a 41.7% total body weight loss and a weight loss of 76.1 pounds since surgery (operative weight 252.3 pounds) reflecting a 30.1% TBWL since surgery. No complaints of nausea, emesis, abdominal pain or reflux. Reports infrequent but normal bowel movements every 3 days and uses stool softeners regularly. fusion mvi daily She states that she has been following her meal plan exactly 2 days per week and around 70 % the rest of the week. Recommended meal plan includes: Celebrate rebuild 2 scoops in 10-12 oz of unsweetened almond milk at 07-9 celebrate bar noon to 2 Meal at 5, 4 forks protein and 4 forks vegetables Celebrate rebuild 1 scoop in 8-10 oz of 0 milk at 7-9 Drinking 50 oz water daily ? Exercise routine includes: PF 500-600 blas daily, treadmill incline 9-15, speed 3.7, elliptical PFSH Medical History Morbid obesity Abdominal pain Abnormal bowel habits Atopic dermatitis Anxiety Depression Body piercing Family history of complication of anesthesia Atopic dermatitis HTN (hypertension) Sleep apnea Surgical History Hx of laparoscopic partial gastrectomy Hx of section Hx of wisdom tooth extraction Family History Mother Hypertension Bipolar 1 disorder Heart murmur Father Bipolar 1 disorder Hypertension Lung cancer Alcohol abuse Son No problems noted. Daughter No problems noted. Social History Household Members: Spouse Are you a primary youth care professional to a significant other at home: No Do you presently have visiting nurse or other home services: No Alcohol intake: former Patient Tobacco Use Status: Former Tobacco user Tobacco use type: Cigarette Years Smoked: 1 service: No Physical Exam Vital Signs: Last Vital Signs Temp 98.1 F 11/06/24 08:32 Pulse 81 11/06/24 08:32 Pulse Ox 99 11/06/24 08:32 Oxygen Delivery Method Room Air 11/06/24 08:32 BMI result Body Mass Index 28.4 Const General: healthy appearing and no acute distress Resp Effort & Inspection: normal respiratory effort Auscultation: clear to auscultation bilaterally Cardio Rate: regular rate Rhythm: regular rhythm GI Auscultation: normal bowel sounds Extrem General: Yes normal to inspection Assessment & Plan Assessment & Plan (1) S/P laparoscopic sleeve gastrectomy: Code(s): Z98.84 - Bariatric surgery status Category: Surgical Plan: Patient got her labs done today, results are pending. She was encouraged to follow the right BMI nimco. Given strategies to improve compliance. She is exercising regularly and appropriately. Encouraged to continue to send weights and text with any questions or concerns. We will have her return to the office in approximately 2 months for her 18 month follow-up appointment. While patient's initial blood pressure was elevated, she was completely asymptomatic. She felt much better and calmer at the end of the visit,
== END 2024-11-06 09:10 | disposition home or self-care (01) ==
LOC: HO.HBS 08:50
PROVIDERS: PCP Internal Medicine; Visit Provider Physician Assistant Surgical
DX: E66.3 Overweight (principal); Z68.28 Body mass index [BMI] 28.0-28.9, adult; Z90.3 Acquired absence of stomach [part of]; Z98.84 Bariatric surgery status
CPT/HCPCS: 99213

== ENCOUNTER 2024-11-20 14:10 | Outpatient (AMB) | payer OTHER, SELFPAY ==
--- NOTE | 2024-11-20 14:05 | MHC.WMTHER ---
Intake Intake Visit Reasons: VIDEO PO LSG 07/12/23 Allergies No Known Allergies Allergy (Verified 11/06/24 09:06) PFSH Medical History Morbid obesity Abdominal pain Abnormal bowel habits Atopic dermatitis Anxiety Depression Body piercing Family history of complication of anesthesia Atopic dermatitis HTN (hypertension) Sleep apnea Surgical History Hx of laparoscopic partial gastrectomy Hx of section Hx of wisdom tooth extraction Family History Mother Hypertension Bipolar 1 disorder Heart murmur Father Bipolar 1 disorder Hypertension Lung cancer Alcohol abuse Son No problems noted. Daughter No problems noted. Social History Household Members: Spouse Are you a primary coronary care unit nurse to a significant other at home: No Do you presently have visiting nurse or other home services: No Alcohol intake: former Patient Tobacco Use Status: Former Tobacco user Tobacco use type: Cigarette Years Smoked: 1 service: No Behavioral Health Assessment Weight Management Therapy Therapy Notes Details Subjective: Patient reports feeling sad due to the recent loss of one of her cats, who was euthanized. Despite the grief, she reports feeling well overall and has remained active and engaged in daily life. Objective: Patient attended a post-operative behavioral health follow-up session via telehealth. Discussed functioning, needs and challenges. CBT and strenght-based approach was implemented in today's session. Now over one year post-bariatric surgery (surgery date: 07/2023), the focus has shifted to maintaining a sustainable, healthy lifestyle. We discussed long-term habits that support weight stability, including increasing whole food choices (e.g., hard-boiled eggs instead of protein shakes or bars) and incorporating regular physical activity, such as targeted strength training 2?3 times per week. We also explored cognitive distortions, particularly [id number] thinking, and how they may contribute to guilt and interfere with building a balanced relationship with food. Additionally, we processed grief related to the recent loss of her pet. Assessment/Response: Mental status: Mood sad due to recent loss but appropriate. No signs of clinical depression. Thought process organized; insight and judgment intact. Functioning within normal limits. Risk reported/identified: WNL. Assessment & Plan Assessment & Plan (1) Adjustment disorder with anxiety: Code(s): F43.22 - Adjustment disorder with anxiety (2) Status post bariatric surgery: Code(s): Z98.84 - Bariatric surgery status Plan -Follow up in 2 months to monitor progress with lifestyle changes, emotional well-being, and behavioral health support for long-term weight maintenance post-bariatric surgery. -[facility]. -Patient encouraged to implement gradual changes and continue using cognitive strategies discussed in session. Next nimco: 2 months, Shashi will reach her up to set up the nimco. Coding Level of Care Code Established Pt Tele Psytx 45 mins (26922) Patient Type Established Diagnoses Adjustment disorder with anxiety F43.22 Status post bariatric surgery Z98.84 Time Spent (min) 40 Comment Start: 2:05pm- End: 2:45pm
--- OUTSIDE RECORDS SUMMARY | 2024-11-20 15:27 | XMS_ITS | Clinical Summary ---
Author Organization [facility] [address] [facility] lding Address [address] [place] [address] Phone Care Team Providers Care Group Leader [employer] Processing Name Role Phone Merry Hawk MD Primary [...] 03/07/2022 Obstructive sleep apnea 10/03/2021 Overview (03/14/2024): [facility] diagnostic polysomnogram/06/2021; weight 305; BMI 49. [...] 9:00 AM EDT Office Visit Adult Medicine [address] [address] Marsha Anderson, RENETTA Routine general [...] 64 09/16/2024 9:07 AM EDT Temperature 36.9 C (98.4 F) 09/16/2024 9:07 AM EDT Respiratory Rate - - Oxygen Saturation - - Inhaled Oxygen Concentration - - Weight 81.6 kg (180 lb) 09/16/2024 9:07 AM EDT Height 167.6 cm (5' 6 ) 10/12/2023 10:59 AM EDT Body Mass Index 29.05 10/12/2023 10:59 AM EDT Plan of Treatment Upcoming Encounters Date Type Department Care Team (Late st Contact Info) Description 03/18/2025 8:45 AM EDT Office Visit Adult Medicine [facility] [address] [place] [address] Marsha Anderson PA [address] [place] [address] Health Maintenance Due Date Last Done Comments [...] 09/16/2034 09/16/2024, 03/05/2013 HPV Vaccines Completed 06/04/2008, 06/2007, 06/04/2007 Hepatitis C Screening Completed 03/05/2013 [...] to direct LDL (09/16/2024 9:52 AM EDT) [facility] Signature Cholesterol 151 0 - 200 mg/dL LAB CHEMISTRY METHOD 09/16/2024 1:34 PM EDT [facility] Triglycerides 62 0 - 150 mg/dL LAB CHEMISTRY METHOD 09/16/2024 1:34 PM EDT [facility] HDL 71 >=40 mg/dL LAB CHEMISTRY METHOD 09/16/2024 1:34 PM EDT [facility] LDL Calculated 68 0 - 100 mg/dL LAB CHEMISTRY METHOD 09/16/2024 1:34 PM EDT [facility] VLDL Cholesterol Addison 12.4 mg/dL LAB CHEMISTRY METHOD 09/16/2024 1:34 PM EDT [facility] Non HDL Chol. (LDL+VLDL) 80 <145 mg/dL LAB CHEMISTRY METHOD 09/16/2024 1:34 PM EDT [facility] Chol/HDL Ratio 2.1 0.0 - 4.4 LAB CHEMISTRY METHOD 09/16/2024 1:34 PM EDT [facility] Blood Venous blood specimen / Unknown Venipuncture / Unknown 09/16/2024 9:52 AM EDT 09/16/2024 9:53 AM EDT us Marsha JACKSON LAB BLOOD ORDERABLES Final Result [facility] [address] [place] [address], * CBC auto differential (09/16/2024 9:52 AM EDT) [facility] WBC 6.4 4.8 - 10.8 K/mcL LAB HEMETOLOGY METHOD 09/16/2024 11:56 AM [facility] RBC 4.30 3.80 - 4.80 M/mcL LAB HEMETOLOGY METHOD 09/16/2024 11:56 AM [facility] Hemoglobin 13.3 11.5 - 16.0 g/dL LAB HEMETOLOGY METHOD 09/16/2024 11:56 AM [facility] Hematocrit 39.5 35.0 - 47.0 % LAB HEMETOLOGY METHOD 09/16/2024 11:56 AM [facility] MCV 91.4 79.0 - 98.0 FL LAB HEMETOLOGY METHOD 09/16/2024 11:56 AM [facility] MCH 30.8 27.0 - 32.0 pcg LAB HEMETOLOGY METHOD 09/16/2024 11:56 AM [facility] MCHC 33.7 32.0 - 37.0 g/dL LAB HEMETOLOGY METHOD 09/16/2024 11:56 AM [facility] RDW 12.2 11.0 - 15.0 % LAB HEMETOLOGY METHOD 09/16/2024 11:56 AM [facility] Platelets 299 130 - 400 K/mcL LAB HEMETOLOGY METHOD 09/16/2024 11:56 AM [facility] MPV 10.3 7.0 - 11.0 FL LAB HEMETOLOGY METHOD 09/16/2024 11:56 AM [facility] NRBC 0.0 <1.0 % LAB HEMETOLOGY METHOD 09/16/2024 11:56 AM [facility] NRBC Absolute 0.00 <0.10 K/mcL LAB HEMETOLOGY METHOD 09/16/2024 11:56 AM [facility] Neutrophils Relative 55.1 % LAB HEMETOLOGY METHOD 09/16/2024 11:56 AM [facility] Lymphocytes Relative 33.0 % LAB HEMETOLOGY METHOD 09/16/2024 11:56 AM [facility] Monocytes Relative 7.2 % LAB HEMETOLOGY METHOD 09/16/2024 11:56 AM [facility] Eosinophils Relative 3.6 % LAB HEMETOLOGY METHOD 09/16/2024 11:56 AM [facility] Basophils Relative 0.8 % LAB HEMETOLOGY METHOD 09/16/2024 11:56 AM [facility] Immature Granulocytes Relative 0.3 % LAB HEMETOLOGY METHOD 09/16/2024 11:56 AM [facility] Neutrophils Absolute 3.53 1.50 - 7.00 K/mcL LAB HEMETOLOGY METHOD 09/16/2024 11:56 AM [facility] Lymphocytes Absolute 2.11 1.00 - 5.00 K/mcL LAB HEMETOLOGY METHOD 09/16/2024 11:56 AM [facility] Monocytes Absolute 0.46 0.20 - 1.00 K/mcL LAB HEMETOLOGY METHOD 09/16/2024 11:56 AM [facility] Eosinophils Absolute 0.23 0.00 - 0.50 K/mcL LAB HEMETOLOGY METHOD 09/16/2024 11:56 AM [facility] Basophils Absolute 0.05 0.00 - 0.20 K/mcL LAB HEMETOLOGY METHOD 09/16/2024 11:56 AM [facility] Immature Granulocytes Absolute 0.02 0.00 - 0.03 K/mcL LAB HEMETOLOGY METHOD 09/16/2024 11:56 AM [facility] Blood Venous blood specimen / Unknown Venipuncture / Unknown 09/16/2024 9:52 AM EDT 09/16/2024 9:53 AM EDT Marsha JACKSON LAB BLOOD ORDERABLES Final Result [facility] [address] [place] [address], [place] [phone] * Comprehensive metabolic panel (09/16/2024 9:52 AM EDT) Sodium 139 133 - 145 mmol/L LAB CHEMISTRY METHOD 09/16/2024 1:34 PM [facility] Potassium 4.0 3.5 - 5.5 mmol/L LAB CHEMISTRY METHOD 09/16/2024 1:34 PM [facility] Chloride 106 96 - 110 mmol/L LAB CHEMISTRY METHOD 09/16/2024 1:34 PM [facility] CO2 28 21 - 32 mmol/L LAB CHEMISTRY METHOD 09/16/2024 1:34 PM [facility] Anion Gap 5 3 - 11 LAB CHEMISTRY METHOD 09/16/2024 1:34 PM [facility] Glucose 73 70 - 100 mg/dL LAB CHEMISTRY METHOD 09/16/2024 1:34 PM [facility] BUN 11 5 - 25 mg/dL LAB CHEMISTRY METHOD 09/16/2024 1:34 PM [facility] Creatinine 0.68 0.50 - 1.10 mg/dL LAB CHEMISTRY METHOD 09/16/2024 1:34 PM [facility] eGFR 119 >=60 mL/min/1. 73m2 LAB CHEMISTRY METHOD 09/16/2024 1:34 PM [facility] Comment:Calculation based on the Chronic Kidney Disease Epidemiology Collaboration (CKD-EPI) equation refit without adjustment for race. BUN/Creatinine Ratio 16.2 LAB CHEMISTRY METHOD 09/16/2024 1:34 PM [facility] Calcium 9.3 8.5 - 10.5 mg/dL LAB CHEMISTRY METHOD 09/16/2024 1:34 PM EDT [facility] AST (SGOT) 20 10 - 42 unit/L LAB CHEMISTRY METHOD 09/16/2024 1:34 PM EDT [facility] ALT (SGPT) 21 10 - 60 unit/L LAB CHEMISTRY METHOD 09/16/2024 1:34 PM EDT [facility] Alkaline Phosphatase 55 42 - 121 unit/L LAB CHEMISTRY METHOD 09/16/2024 1:34 PM EDT [facility] Total Protein 6.9 6.0 - 8.0 g/dL LAB CHEMISTRY METHOD 09/16/2024 1:34 PM EDT [facility] Albumin 3.8 3.2 - 5.0 g/dL LAB CHEMISTRY METHOD 09/16/2024 1:34 PM T [facility] Total Bilirubin 0.5 0.0 - 1.4 mg/dL LAB CHEMISTRY METHOD 09/16/2024 1:34 PM T [facility] Blood Venous blood specimen / Unknown Venipuncture / Unknown 09/16/2024 9:52 AM EDT 09/16/2024 9:53 AM EDT Marsha JACKSON LAB BLOOD ORDERABLES Final Result [facility] [address] [place] [address], * Depression Screening (10/12/2023) Depression Screening ABSTRACTED Historical Provider HEALTH MAINTENANCE Final Result * Cervical Cancer Screening: HPV (05/12/2022) Cervical Cancer Screening: HPV negative,a bstracted Historical Provider HEALTH MAINTENANCE Final Result * Hepatitis C Screening (03/05/2013) Hepatitis C Screening ABSTRACTED us Historical Provider HEALTH MAINTENANCE Final Result from Last 3 Months or Most Recently Relevant to Health Maintenance Insurance [facility] Member Subscriber Plan / Payer (Ef fective 2016-Present) Name:Sophie Ham Relation to Subscriber:Self Name:Sophie Ham Payer ID:[id number] Group ID:[id number] Type:Not on file Address: [facility] [address] [phone] [facility] Care Teams Group Leader [employer] Processing Relationship Specialty Start Date End Date Merry Hawk MD [address] [place] [id number] PCP - General Internal Medicine 06/11/24
== END 2024-11-20 15:11 | disposition home or self-care (01) ==
LOC: HO.HBST 14:10
PROVIDERS: PCP Internal Medicine; Visit Provider Counselor Mental Health
DX: F43.22 Adjustment disorder with anxiety (principal); Z98.84 Bariatric surgery status
CPT/HCPCS: 90834

== ENCOUNTER 2025-01-23 10:47 | Outpatient (AMB) | payer OTHER, SELFPAY ==
--- OUTSIDE RECORDS SUMMARY | 2025-01-23 10:50 | XMS_ITS | Clinical Summary ---
Author Organization [facility] 230 [facility] lding Address [address] [place] [address] Phone Care Team Providers Care Outpatient Coordinator Name Role Phone Merry Hawk MD Primary [...] 03/07/2022 Obstructive sleep apnea 10/03/2021 Overview (03/14/2024): [facility] diagnostic polysomnogram/06/2021; weight 305; BMI 49. AHI [...] Surgery Date Site/Laterality Comments SECTION 08/11/2017 PROCEDURE: [place] DELIVERY ONLY WISDOM TOOTH EXTRACTION PROCEDURE: HISTORICAL WISDOM TEETH EXTRACTION BARIATRIC SURGERY 07/12/2023 PROCEDURE: [place] LAPS GSTRC RSTRICTIV PX LONGITUDINAL GASTRECTOMY Medical [...] 8:45 AM EDT Office Visit Adult Medicine [facility] [address] [place] [address] Marsha Anderson PA [address] [place] [address] Health Maintenance Due Date Last Done Comments Hepatitis B Vaccines (1 of 3 - 19+ 3-dose series) 01/28/2011 Pneumococcal Vaccine: Pediatrics (0 to 5 Years) and At-Risk Patients (6 to 49 Years) (1 of 2 - PCV) 01/28/2011 HIV Screening 05/13/2022 Social Influencers of Health Screening 05/13/2022 COVID-19 Vaccine ( season) 2024 06/01/2021, 10/22/2020, 09/24/2020 Depression Screening 06/04/2024 10/12/2023 Influenza Vaccine (#1) 2025 , 03/09/2022, 03/09/2022, Additional history exists Hypertension/CHF/CAD Annual BMP Blood Test 09/16/2025 09/16/2024, 01/11/2023 Cervical Cancer Screening: HPV 05/12/2027 05/12/2022 Cholesterol Screening (Lipid Panel) 09/16/2029 09/16/2024, 01/11/2023 DTaP,Tdap,and Td Vaccines (3 - Td or Tdap) 09/16/2034 09/16/2024, 03/05/2013 HPV Vaccines Completed 06/04/2008, 04/0 06/2007, 06/04/2007 [...] Procedure Name Priority Date/Time Associated Diagnosis Comments COMPREHENSIVE METABOLIC PANEL Routine 09/16/2024 9:52 AM EDT Routine general medical examination at a health care facility LIPID PANEL WITH REFLEX TO DIRECT LDL Routine 09/16/2024 9:52 AM EDT Routine general medical examination at a health care facility DEPRESSION SCREENING Routine 10/12/2023 HPV Routine 05/12/2022 HEPATITIS C SCREENING Routine 03/05/2013 from Last 3 Months or Most Recently Relevant to Health Maintenance Results * Lipid panel with reflex to direct LDL (09/16/2024 9:52 AM EDT) [facility] Cholesterol 151 0 - 200 mg/dL LAB CHEMISTRY METHOD 09/16/2024 1:34 PM EDT [facility] Triglycerides 62 0 - 150 mg/dL LAB CHEMISTRY METHOD 09/16/2024 1:34 PM EDT [facility] HDL 71 >=40 mg/dL LAB CHEMISTRY METHOD 09/16/2024 1:34 PM EDT [facility] LDL Calculated 68 0 - 100 mg/dL LAB CHEMISTRY METHOD 09/16/2024 1:34 PM EDT [facility] VLDL Cholesterol Addison 12.4 mg/dL LAB CHEMISTRY METHOD 09/16/2024 1:34 PM T [facility] Non HDL Chol. (LDL+VLDL) 80 <145 mg/dL LAB CHEMISTRY METHOD 09/16/2024 1:34 PM [facility] Chol/HDL Ratio 2.1 0.0 - 4.4 LAB CHEMISTRY METHOD 09/16/2024 1:34 PM T [facility] Blood Venous blood specimen / Unknown Venipuncture / Unknown 09/16/2024 9:52 AM EDT 09/16/2024 9:53 AM EDT us Marsha JACKSON LAB BLOOD ORDERABLES Final Result [facility] [address] [place] [address], * Comprehensive metabolic panel (09/16/2024 9:52 AM EDT) Sodium 139 133 - 145 mmol/L LAB CHEMISTRY METHOD 09/16/2024 1:34 PM T [facility] Potassium 4.0 3.5 - 5.5 mmol/L LAB CHEMISTRY METHOD 09/16/2024 1:34 PM [facility] Chloride 106 96 - 110 mmol/L LAB CHEMISTRY METHOD 09/16/2024 1:34 PM [facility] CO2 28 21 - 32 mmol/L LAB CHEMISTRY METHOD 09/16/2024 1:34 PM [facility] Anion Gap 5 3 - 11 LAB CHEMISTRY METHOD 09/16/2024 1:34 PM [facility] Glucose 73 70 - 100 mg/dL LAB CHEMISTRY METHOD 09/16/2024 1:34 PM [facility] BUN 11 5 - 25 mg/dL LAB CHEMISTRY METHOD 09/16/2024 1:34 PM [facility] Creatinine 0.68 0.50 - 1.10 mg/dL LAB CHEMISTRY METHOD 09/16/2024 1:34 PM [facility] eGFR 119 >=60 mL/min/1. 73m2 LAB CHEMISTRY METHOD 09/16/2024 1:34 PM [facility] Comment:Calculation based on the Chronic Kidney Disease Epidemiology Collaboration (CKD-EPI) equation refit without adjustment for race. BUN/Creatinine Ratio 16.2 LAB CHEMISTRY METHOD 09/16/2024 1:34 PM [facility] Calcium 9.3 8.5 - 10.5 mg/dL LAB CHEMISTRY METHOD 09/16/2024 1:34 PM [facility] AST (SGOT) 20 10 - 42 unit/L LAB CHEMISTRY METHOD 09/16/2024 1:34 PM [facility] ALT (SGPT) 21 10 - 60 unit/L LAB CHEMISTRY METHOD 09/16/2024 1:34 PM [facility] Alkaline Phosphatase 55 42 - 121 unit/L LAB CHEMISTRY METHOD 09/16/2024 1:34 PM [facility] Total Protein 6.9 6.0 - 8.0 g/dL LAB CHEMISTRY METHOD 09/16/2024 1:34 PM [facility] Albumin 3.8 3.2 - 5.0 g/dL LAB CHEMISTRY METHOD 09/16/2024 1:34 PM [facility] Total Bilirubin 0.5 0.0 - 1.4 mg/dL LAB CHEMISTRY METHOD 09/16/2024 1:34 PM EDT [facility] Blood Venous blood specimen / Unknown Venipuncture / Unknown 09/16/2024 9:52 AM EDT 09/16/2024 9:53 AM EDT Marsha JACKSON LAB BLOOD ORDERABLES Final Result [facility] [address] [place] [address], * Depression Screening (10/12/2023) Pathologist [facility] Depression Screening ABSTRACTED Historical Provider HEALTH MAINTENANCE Final Result * Cervical Cancer Screening: HPV (05/12/2022) [facility] Cervical Cancer Screening: HPV negative,a bstracted Historical Provider HEALTH MAINTENANCE Final Result * Hepatitis C Screening (03/05/2013) [facility] Hepatitis C Screening ABSTRACTED Historical Provider HEALTH MAINTENANCE Final Result from Last 3 Months or Most Recently Relevant to Health Maintenance Insurance [facility] Member Subscriber Plan / Payer (Ef fective 2016-Present) Name:Sophie Ham Relation to Subscriber:Self Name:Sophie Ham Payer ID:[id number] Group ID:[id number] Type:Not on file Address: [place] [address] [address] [facility] Care Teams Outpatient Coordinator Relationship Specialty Start Date End Date Merry Hawk MD [address] [place] [id number] PCP - General Internal Medicine 06/11/24
[2025-01-23 10:56] VITALS: BP 144/88; PULSE 74; TEMP 36.3; O2SAT 99; BMI 28.0
--- NOTE | 2025-01-23 10:56 | MHC.OFFVISWM ---
VS Expanded 01/23/25 10:56 BP 144/88 H Blood Pressure Location Rt brachial Blood Pressure Position Sitting Pulse 74 Pulse Source Pulse Oximeter Temp 97.3 F Temperature Source Temporal Artery Scan Pulse Oximetry 99 Oxygen Delivery Method Room Air Height 5 ft 6 in Weight 173 lb 3.2 oz BMI 28.0 Body Fat % 34.1 Body Fat Mass 9.0 Fat Free Mass 114.0 Visceral Fat Rating 5.0 Body Water % 47.3 Body Water Mass 81.8 Muscle Mass/Score 108.2 Basal Metabolic Rate/Score 1,571 Intake Visit Reasons: (OV) PO LSG 07/12/23 Composing Room Supervisor Required: No Allergies No Known Allergies Allergy (Verified 01/23/25 10:57) Medication List - Last Reconciled 01/23/25 by RENETTA Oliver docusate sodium (Colace) 100 mg PO BID escitalopram oxalate 10 mg PO DAILY fluticasone propionate 50 mcg/actuation 1 spray intranasal DAILY cbhqkdfzrkdm-pus-iyem-FA-vit K 45 mg iron- 800 mcg-120 mcg (Bariatric Multivitamins) caps PO norethindrone-e.estradiol-iron 1 mg-20 mcg (21)/75 mg (7) (Blisovi Fe 06/23 (28)) tabs PO DAILY sennosides (senna) 17.2 mg (2 x 8.6 mg) PO BEDTIME PRN HPI Comments Details: This?a?34?yo female who is s/p LSG without hiatal hernia repair on?07/12/2023. Presents for 1 year 6 month post op visit. Weight today is 173.2 pounds, with a BMI of 27.9. There has been a 129.2 pound weight loss,(initial weight 302.4 pounds) since starting the program on 02/14/2023 reflecting a 42.7% total body weight loss and a weight loss of 79.1 pounds since surgery (operative weight 252.3 pounds) reflecting a 31.3% TBWL since surgery. No complaints of nausea, emesis, abdominal pain or reflux. Reports infrequent but normal bowel movements every 3 days and uses stool softeners regularly. fusion mvi daily She states that she is not following her meal plan due to being lazy. She has right bmi nimco Recommended meal plan includes: Celebrate rebuild 2 scoops in 10-12 oz of unsweetened almond milk at 07-9 celebrate bar noon to 2 Meal at 5, 4 forks protein and 4 forks vegetables Celebrate rebuild 1 scoop in 8-10 oz of 0 milk at 7-9 Drinking 50 oz water daily ? Exercise routine includes: PF 500-600 blas daily, treadmill incline 9-15, speed 3.7, elliptical Any post op complications: none EDINSON: resolved DM: never HTN: resolved Hyperlipidemia: never GERD:?0-5 scale ??0 = no symptoms ??1 = symptoms noticeable but not bothersome 2 =symptoms bothersome but not daily ? 3 = symptoms bothersome and daily 4 = symptoms affect daily activities 5 = symptoms are incapacitating, unable to do daily activities ? How bad is the heartburn: 0 ? Heartburn while lying down: 0 ? Heartburn when standing up: 0 ? Heartburn after meals: 0 ? Does heartburn change your diet: 0 ? Does heartburn wake you up from sleep: 0 ? Do you have difficulty swallowin ? Do you have pain with swallowin ? If you take medicine for your reflux, does this affect your daily life: 0 Satisfaction with present condition - satisfied or not satisfied: satisfied [facility] Medical History Morbid obesity Abdominal pain Abnormal bowel habits Atopic dermatitis Anxiety Depression Body piercing Family history of complication of anesthesia Atopic dermatitis HTN (hypertension) Sleep apnea Surgical History Hx of laparoscopic partial gastrectomy Hx of section Hx of wisdom tooth extraction Family History Mother Hypertension Bipolar 1 disorder Heart murmur Father Bipolar 1 disorder Hypertension Lung cancer Alcohol abuse Son No problems noted. Daughter No problems noted. Social History Household Members: Spouse Are you a primary managed care specialist to a significant other at home: No Do you presently have visiting nurse or other home services: No Alcohol intake: former Patient Tobacco Use Status: Former Tobacco user Tobacco use type: Cigarette Years Smoked: 1 service: No Physical Exam Vital Signs: Last Vital Signs Temp 97.3 F 01/23/25 10:56 Pulse 74 01/23/25 10:56 BP 144/88 H 01/23/25 10:56 Pulse Ox 99 01/23/25 10:56 Oxygen Delivery Method Room Air 01/23/25 10:56 BMI result Body Mass Index 28.0 Assessment & Plan Assessment & Plan (1) S/P laparoscopic sleeve gastrectomy: Code(s): Z98.84 - Bariatric surgery status Category: Surgical Plan: Identified barriers to success including consistency in following the meal plan. She states she will try harder. She is exercising regularly and consistently. She recently had lab work. Encouraged multivitamin without additional iron. Return to clinic 2-3 months She does have and has been following right BMI nimco plan. She just needs to follow the meal plan consistently.
== END 2025-01-23 12:04 | disposition home or self-care (01) ==
LOC: HO.HBS 10:47
PROVIDERS: PCP Internal Medicine; Visit Provider Physician Assistant Surgical
DX: E66.9 Obesity, unspecified (principal); Z68.28 Body mass index [BMI] 28.0-28.9, adult; Z98.84 Bariatric surgery status
CPT/HCPCS: 99213

== ENCOUNTER 2025-02-05 12:05 | Outpatient (AMB) | payer OTHER, SELFPAY ==
--- NOTE | 2025-02-05 12:05 | A.OFFWM_ITS ---
Intake Intake Visit Reasons: VIDEO PO LSG 07/12/23 Allergies No Known Allergies Allergy (Verified 01/23/25 10:57) PFSH Medical History Morbid obesity Abdominal pain Abnormal bowel habits Atopic dermatitis Anxiety Depression Body piercing Family history of complication of anesthesia Atopic dermatitis HTN (hypertension) Sleep apnea Surgical History Hx of laparoscopic partial gastrectomy Hx of section Hx of wisdom tooth extraction Family History Mother Hypertension Bipolar 1 disorder Heart murmur Father Bipolar 1 disorder Hypertension Lung cancer Alcohol abuse Son No problems noted. Daughter No problems noted. Social History Household Members: Spouse Are you a primary healthcare administration intern to a significant other at home: No Do you presently have visiting nurse or other home services: No Alcohol intake: former Patient Tobacco Use Status: Former Tobacco user Tobacco use type: Cigarette Years Smoked: 1 service: No Behavioral Health Assessment Weight Management Therapy Therapy Notes Details Subjective: Patient reports improvement in her exercise routine and meal planning. She has been attending the gym most days of the week and is making efforts to maintain consistency with her meal schedule and protein intake. However, she is experiencing increased stress related to her caregiving responsibilities for her grandmother, who has dementia. Objective: Patient attended a behavioral health post-operative follow-up visit. She was alert, oriented, and engaged throughout the session. The session focused on reinforcing her progress with exercise and nutrition, and exploring strategies to maintain consistency and discipline in these areas. Cognitive-behavioral interventions were used to support decision-making and problem-solving around meal planning and gym attendance. Stress management techniques, including deep breathing, mindfulness, and time management strategies, were introduced and practiced to help the patient cope with the demands of caregiving. The importance of self-care and setting boundaries was discussed to prevent caregiver burnout. Assessment/Response: * Mental status: atient is alert and oriented to person, place, and time. Mood is described as generally positive, with some stress related to caregiving. Affect is congruent with mood. Thought processes are logical and coherent. No evidence of psychosis or cognitive impairment. * Risk reported/identified: Patient denies any thoughts of self-harm, harm to others, or suicidal ideation. No acute safety concerns identified during the session. Assessment & Plan Assessment & Plan (1) Adjustment disorder with anxiety: Code(s): F43.22 - Adjustment disorder with anxiety (2) Status post bariatric surgery: Code(s): Z98.84 - Bariatric surgery status Plan Follow up in three months to monitor progress with exercise, nutrition, and stress management. Patient encouraged to continue implementing consistency strategies and stress reduction techniques discussed in session, and to prioritize self-care while managing caregiving responsibilities. * Next appointment scheduled for 05/07/2025. Telehealth Telehealth Telehealth Platform: [employer] Location of provider rendering services: other (Home office. [place], [place]) Location of patient: address on file Patient Identification confirmed using: Name, : Yes Telehealth method: video Patient verbally consented to treatment: Yes Patient verbally consented to billing insurance company: Yes Patient informed of any privacy concerns related to visit: Yes Minutes spent on Phone/Video with Pt.: 55 [place] [address] Tele Psytx >53 mins Patient Type Established Diagnoses Adjustment disorder with anxiety F43.22 Status post bariatric surgery Z98.84 Time Spent (min) 55
--- OUTSIDE RECORDS SUMMARY | 2025-02-05 13:38 | XMS_ITS | Clinical Summary ---
Author Organization [facility] [address] [facility] lding Address [address] [place] [address] Phone Care Team Providers Care Scalp Specialist Name Role Phone Merry Hawk MD [...] 03/07/2022 Obstructive sleep apnea 10/03/2021 Overview (03/14/2024): [facility] diagnostic polysomnogram/06/2021; weight 305; BMI 49. AHI [...] 8:45 AM EDT Office Visit Adult Medicine [facility] [address] [place] [address] Marsha Anderson PA [address] [place] [address] Health Maintenance Due Date Last Done Comments [...] to direct LDL (09/16/2024 9:52 AM EDT) [facility] Cholesterol 151 0 - 200 mg/dL LAB CHEMISTRY METHOD 09/16/2024 1:34 PM EDT [facility] Triglycerides 62 0 - 150 mg/dL LAB CHEMISTRY METHOD 09/16/2024 1:34 PM EDT [facility] HDL 71 >=40 mg/dL LAB CHEMISTRY METHOD 09/16/2024 1:34 PM EDT [facility] LDL Calculated 68 0 - 100 mg/dL LAB CHEMISTRY METHOD 09/16/2024 1:34 PM EDT [facility] VLDL Cholesterol Addison 12.4 mg/dL LAB CHEMISTRY METHOD 09/16/2024 1:34 PM T [facility] Non HDL Chol. (LDL+VLDL) 80 <145 mg/dL LAB CHEMISTRY METHOD 09/16/2024 1:34 PM [facility] Chol/HDL Ratio 2.1 0.0 - 4.4 LAB CHEMISTRY METHOD 09/16/2024 1:34 PM T [facility] Blood Venous blood specimen / Unknown Venipuncture / Unknown 09/16/2024 9:52 AM EDT 09/16/2024 9:53 AM EDT us Marsha JACKSON LAB BLOOD ORDERABLES Final Result [facility] [address] [place] [address], * Comprehensive metabolic panel (09/16/2024 9:52 AM EDT) Sodium 139 133 - 145 mmol/L LAB CHEMISTRY METHOD 09/16/2024 1:34 PM T [facility] Potassium 4.0 3.5 - 5.5 mmol/L LAB CHEMISTRY METHOD 09/16/2024 1:34 PM [facility] Chloride 106 96 - 110 mmol/L LAB CHEMISTRY METHOD 09/16/2024 1:34 PM [facility] CO2 28 21 - 32 mmol/L LAB CHEMISTRY METHOD 09/16/2024 1:34 PM [facility] Anion Gap 5 3 - 11 LAB CHEMISTRY METHOD 09/16/2024 1:34 PM [facility] Glucose 73 70 - 100 mg/dL LAB CHEMISTRY METHOD 09/16/2024 1:34 PM [facility] BUN 11 5 - 25 mg/dL LAB CHEMISTRY METHOD 09/16/2024 1:34 PM [facility] Creatinine 0.68 0.50 - 1.10 mg/dL LAB CHEMISTRY METHOD 09/16/2024 1:34 PM [facility] eGFR 119 >=60 mL/min/1. 73m2 LAB CHEMISTRY METHOD 09/16/2024 1:34 PM [facility] Comment:Calculation based on the Chronic Kidney Disease Epidemiology Collaboration (CKD-EPI) equation refit without adjustment for race. BUN/Creatinine Ratio 16.2 LAB CHEMISTRY METHOD 09/16/2024 1:34 PM [facility] Calcium 9.3 8.5 - 10.5 mg/dL LAB CHEMISTRY METHOD 09/16/2024 1:34 PM [facility] AST (SGOT) 20 10 - 42 unit/L LAB CHEMISTRY METHOD 09/16/2024 1:34 PM [facility] ALT (SGPT) 21 10 - 60 unit/L LAB CHEMISTRY METHOD 09/16/2024 1:34 PM [facility] Alkaline Phosphatase 55 42 - 121 unit/L LAB CHEMISTRY METHOD 09/16/2024 1:34 PM [facility] Total Protein 6.9 6.0 - 8.0 g/dL LAB CHEMISTRY METHOD 09/16/2024 1:34 PM [facility] Albumin 3.8 3.2 - 5.0 g/dL LAB CHEMISTRY METHOD 09/16/2024 1:34 PM [facility] Total Bilirubin 0.5 0.0 - 1.4 mg/dL LAB CHEMISTRY METHOD 09/16/2024 1:34 PM EDT [facility] Blood Venous blood specimen / Unknown Venipuncture / Unknown 09/16/2024 9:52 AM EDT 09/16/2024 9:53 AM EDT Marsha JACKSON LAB BLOOD ORDERABLES Final Result [facility] [address] [place] [address], * Depression Screening (10/12/2023) Pathologist [facility] Depression Screening ABSTRACTED Historical Provider HEALTH MAINTENANCE Final Result * Cervical Cancer Screening: HPV (05/12/2022) [facility] Cervical Cancer Screening: HPV negative,a bstracted Historical Provider HEALTH MAINTENANCE Final Result * Hepatitis C Screening (03/05/2013) [facility] Hepatitis C Screening ABSTRACTED Historical Provider HEALTH MAINTENANCE Final Result from Last 3 Months or Most Recently Relevant to Health Maintenance Insurance [facility] Member Subscriber Plan / Payer (Ef fective 2016-Present) Name:Sophie Ham Relation to Subscriber:Self Name:Sophie Ham Payer ID:[id number] Group ID:[id number] Type:Not on file Address: [place] [address] [address] [phone] [facility] Care Teams Scalp Specialist Relationship Specialty Start Date End Date Merry Hawk MD [address] [place] [id number] PCP - General Internal Medicine 06/11/24
== END 2025-02-05 13:07 | disposition home or self-care (01) ==
LOC: HO.HBST 12:05
PROVIDERS: PCP Internal Medicine; Visit Provider Counselor Mental Health
DX: F43.22 Adjustment disorder with anxiety (principal); Z98.84 Bariatric surgery status
CPT/HCPCS: 90837

== ENCOUNTER 2025-04-24 08:07 | Outpatient (AMB) | payer OTHER, SELFPAY ==
--- OUTSIDE RECORDS SUMMARY | 2025-04-24 08:09 | XMS_ITS | Clinical Summary ---
Author Organization [facility] 230 [facility] lding Address [address] [place] [address] Phone Care Team Providers Care Measurement Analyst Name Role Phone Merry Hawk MD Primary Care Prov ider Allergies No known active allergies Medications fluticasone propionate (FLONASE) 50 mcg/actuation nasal spray 2 Sprays by Nasal route daily. 2 Active albuterol HFA (PROAIR HFA ; PROVENTIL HFA ; VENTOLIN HFA) 90 mcg/actuation inhaler Inhale 2 Puffs into the lungs 4 times daily as needed for Cough or Wheezing. 2 Active senna-docusate (PERICOLACE) 8.6-50 mg per tablet Take 1 tablet by mouth 1 (one) time each day. Active senna (SENOKOT) 8.6 mg tablet Take 1 tablet (8.6 mg total) by mouth 1 (one) time each day. Active escitalopram (LEXAPRO) 10 mg tablet Take 1.5 tablets (15 mg total) by mouth 1 (one) time each day. 135 each 1 5 Active Blisovi Fe 06/23, 28, 1 mg-20 mcg (21)/75 mg (7) per tablet TAKE 1 TABLET BY MOUTH DAILY 84 tablet 1 5 Active Blisovi Fe 06/23, 28, 1 mg-20 mcg (21)/75 mg (7) per tablet TAKE 1 TABLET BY MOUTH DAILY 84 tablet 1 5 04/23/20 25 Discontinued Active Problems Problem Noted Date Diagnosed Date Fatty liver 03/07/2022 Obstructive sleep apnea 10/03/2021 Overview (03/14/2024): [facility] diagnostic polysomnogram/06/2021; weight 305; BMI [...] Encounters Date Type Department Care Team Description 04/17/2025 [place] [facility] [address] [address] Merry Hawk MD from Last 3 Months Immunizations Immunization Administration Dates Next Due HPV, Quadrivalent 06/04/2008,09/03/2007,06/04/19 [...] 10/12/2023 10:59 AM EDT Plan of Treatment Health Maintenance Due Date Last Done Comments Hepatitis B Vaccines (1 of 3 - 19+ 3-dose series) 01/28/2011 HIV Screening 05/13/2022 Social Influencers of Health Screening 05/13/2022 Depression Screening 06/04/2024 10/12/2023 COVID-19 Vaccine ( season) 2025 06/01/2021, 10/22/2020, 09/24/2020 Influenza Vaccine (#1) 2025 , 03/09/2022, 03/09/2022, Additional history exists Hypertension/CHF/CAD Annual BMP Blood Test 09/16/2025 09/16/2024, 01/11/2023 Cervical Cancer Screening: HPV 05/12/2027 05/12/2022 Cholesterol Screening (Lipid Panel) 09/16/2029 09/16/2024, 01/11/2023 DTaP,Tdap,and Td Vaccines (3 - Td or Tdap) 09/16/2034 09/16/2024, 03/05/2013 RSV Immunization Adult Patients (1 - 1-dose 75+ series) 01/28/2067 HPV Vaccines Completed 06/04/2008, 06/2007, 06/04/2007 Hepatitis [...] on patient's age to complete this topic Pneumococcal Vaccine: Pediatrics (0 to 5 Years) and At-Risk Patients (6 to 49 Years) Aged Out No longer eligible based on [...] to direct LDL (09/16/2024 9:52 AM EDT) [facility] Cholesterol 151 0 - 200 mg/dL LAB CHEMISTRY METHOD 09/16/2024 1:34 PM EDT [facility] Triglycerides 62 0 - 150 mg/dL LAB CHEMISTRY METHOD 09/16/2024 1:34 PM EDT [facility] HDL 71 >=40 mg/dL LAB CHEMISTRY METHOD 09/16/2024 1:34 PM T [facility] LDL Calculated 68 0 - 100 mg/dL LAB CHEMISTRY METHOD 09/16/2024 1:34 PM EDT [facility] VLDL Cholesterol Addison 12.4 mg/dL LAB CHEMISTRY METHOD 09/16/2024 1:34 PM T [facility] Non HDL Chol. (LDL+VLDL) 80 <145 mg/dL LAB CHEMISTRY METHOD 09/16/2024 1:34 PM [facility] Chol/HDL Ratio 2.1 0.0 - 4.4 LAB CHEMISTRY METHOD 09/16/2024 1:34 PM [facility] Blood Venous blood specimen / Unknown Venipuncture / Unknown 09/16/2024 9:52 AM EDT 09/16/2024 9:53 AM EDT Marsha JACKSON LAB BLOOD ORDERABLES Final Result [facility] [address] [place] [address], * Comprehensive metabolic panel (09/16/2024 9:52 AM EDT) Sodium 139 133 - 145 mmol/L LAB CHEMISTRY METHOD 09/16/2024 1:34 PM [facility] Potassium 4.0 3.5 - 5.5 mmol/L LAB CHEMISTRY METHOD 09/16/2024 1:34 PM [facility] Chloride 106 96 - 110 mmol/L LAB CHEMISTRY METHOD 09/16/2024 1:34 PM [facility] CO2 28 21 - 32 mmol/L LAB CHEMISTRY METHOD 09/16/2024 1:34 PM [facility] Anion Gap 5 3 - 11 LAB CHEMISTRY METHOD 09/16/2024 1:34 PM [facility] Glucose 73 70 - 100 mg/dL LAB CHEMISTRY METHOD 09/16/2024 1:34 PM [facility] BUN 11 5 - 25 mg/dL LAB CHEMISTRY METHOD 09/16/2024 1:34 PM [facility] Creatinine 0.68 0.50 - 1.10 mg/dL LAB CHEMISTRY METHOD 09/16/2024 1:34 PM [facility] eGFR 119 >=60 mL/min/1. 73m2 LAB CHEMISTRY METHOD 09/16/2024 1:34 PM [facility] Comment:Calculation based on the Chronic Kidney Disease Epidemiology Collaboration (CKD-EPI) equation refit without adjustment for race. BUN/Creatinine Ratio 16.2 LAB CHEMISTRY METHOD 09/16/2024 1:34 PM [facility] Calcium 9.3 8.5 - 10.5 mg/dL LAB CHEMISTRY METHOD 09/16/2024 1:34 PM [facility] AST (SGOT) 20 10 - 42 unit/L LAB CHEMISTRY METHOD 09/16/2024 1:34 PM [facility] ALT (SGPT) 21 10 - 60 unit/L LAB CHEMISTRY METHOD 09/16/2024 1:34 PM [facility] Alkaline Phosphatase 55 42 - 121 unit/L LAB CHEMISTRY METHOD 09/16/2024 1:34 PM [facility] Total Protein 6.9 6.0 - 8.0 g/dL LAB CHEMISTRY METHOD 09/16/2024 1:34 PM [facility] Albumin 3.8 3.2 - 5.0 g/dL LAB CHEMISTRY METHOD 09/16/2024 1:34 PM [facility] Total Bilirubin 0.5 0.0 - 1.4 mg/dL LAB CHEMISTRY METHOD 09/16/2024 1:34 PM EDT [facility] Blood Venous blood specimen / Unknown Venipuncture / Unknown 09/16/2024 9:52 AM EDT 09/16/2024 9:53 AM EDT Marsha JACKSON LAB BLOOD ORDERABLES Final Result [facility] ([facility]) [facility] [address] [place] [address], [place] [phone] * Depression Screening (10/12/2023) Pathologist [facility] Depression Screening ABSTRACTED Historical Provider MD HEALTH MAINTENANCE Final Result * Cervical Cancer Screening: HPV (05/12/2022) Pathologist [facility] Cervical Cancer Screening: HPV negative,a bstracted Historical Provider HEALTH MAINTENANCE Final Result * Hepatitis C Screening (03/05/2013) Hepatitis C Screening ABSTRACTED Historical Provider MD HEALTH MAINTENANCE Final Result from Last 3 Months or Most Recently Relevant to Health Maintenance Insurance [facility] MEDICARE Care Teams Measurement Analyst Relationship Specialty Start Date End Date Merry Hawk MD [address] [place] [id number] PCP - General Internal Medicine 06/11/24
--- OUTSIDE RECORDS SUMMARY | 2025-04-24 08:09 | XMS_ITS | Encounter Summary ---
Author Organization [facility] Address [address] [place] [address] Care Team Providers Care Integrated Marketing Intern Name Role Phone Merry Hawk MD Primary Care Prov ider Reason for Referral * Consultation (Routine) - Pending Review Specialty Diagnoses / Procedures Referred By [facility] t Referred To Contact Obstetrics and Gynecology Diagnoses Encounter for gynecological examination without abnormal finding Merry Hawk MD [address] [place] [address] Phone: tel: fax: Case Mcclain MD [address] [place] [phone] Phone: tel: fax: Referral ID Status Reason Start Date Expiration Date Visits Requested Visits Authorized [id number] Pending Review Specialty Services Required 5 04/21/2026 1 1 Reason for Visit * Reason Onset Date Comments Referral 04/17/2025 Encounter Details Date Type Department Care Team ([facility] Contact Info) Description 04/17/2025 Telephone Adult Medicine - [place] [address] [place] [phone] Merry Hawk MD [address] [place] [address] Social History Tobacco Use Types Packs/Day Years Used Date Smoking Tobacco: Former Smokeless Tobacco: Never Alcohol Use Standard Drinks/Week Comments Yes 0 (1 standard drink = 0.6 oz pur e alcohol) Comments Unknown Sex and Gender Information Value Date Recorded Sex Assigned at Not on file Legal Sex Female 4:04 PM EST Gender Identity Not on file Sexual Orientation Not on file documented as of this encounter Progress Notes * Breann Colon - 04/17/2025 3:12 PM EST Referral Request: What insurance does the patient have today? [employer] [place] Referrals cannot be processed if the insurance is not accurate. If the insurance listed above in red is NO BILLING INFORMATION FOUND FOR THIS ENCOUTNER The patients correct insurance must be obtained and registered in [facility] or their referral can not be processed. Who is calling to request this referral? Patient-patient trying to get new OBGYN but needs referralfrom Primary If the caller is not the patient, what is their name? not applicable Ask the patient WHO referred them to this specialty: Patient self referred FIRST and LAST NAME of SPECIALIST PATIENT is seeing: Case Mcclain MD NPI-[id number] What specialty is this? OBGYN DIAGNOSIS Patient is being seen for (Not a body part or a procedure): Routine Gynecology Have you seen this SPECIALIST for this PROBLEM/DX before? If YES, when? No Have you checked REVIEW or the APPT DESK to see if this referral has already been done or has visits left? yes Is this visit: Initial Visit Address of Specialist: [address] [place] [address] Phone # of Specialist: [phone] Fax #: (if applicable): n/a Does patient have an appointment scheduled?: no Date of appointment- (including a retro-request): TBD Is this appointment related to: Not MVA, worker compensation, or surgery related documented in this encounter Plan of Treatment Scheduled Referrals Name Type Priority Associated Diagnoses Orde r Schedule Ambulatory referral to Obstetrics / Gynecology Outpatient Referral Routine Encounter for gynecological examination without abnormal finding Expected: 04/21/2025, Expires: 04/21/2026 documented as of this encounter Visit Diagnoses Diagnosis Encounter for gynecological examination without abnormal finding- Primary documented in this encounter Care Teams Integrated Marketing Intern Relationship Specialty Start Date End Date Merry Hawk MD [address] [place] [phone] PCP - General Internal Medicine 06/11/24 documented as of this encounter
[2025-04-24 08:10] VITALS: BP 132/86; BMI 27.8
--- NOTE | 2025-04-24 08:10 | MHC.OFFVIS ---
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 [facility] Medical History Morbid obesity Abdominal pain Abnormal bowel habits Atopic dermatitis Anxiety Depression Body piercing Family history of complication of anesthesia Atopic dermatitis HTN (hypertension) Sleep apnea Surgical History Hx of laparoscopic partial gastrectomy Hx of section Hx of wisdom tooth extraction Family History Mother Hypertension Bipolar 1 disorder Heart murmur Father Bipolar 1 disorder Hypertension Lung cancer Alcohol abuse Son No problems noted. Daughter No problems noted. 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[place] Sexually active: Yes Sexual orientation: Straight/Heterosexual Gender identity: Female Female Reproductive History Menstrual Age of Menarche: 13 Duration of menses: 3-5 days Date of last menstrual period: 04/07/25 Total pregnancies: 1 Premature: 1 Number of Living Children: 2 Multiple births: 1 Review of Systems Const All systems reviewed & are unremarkable except as noted in HPI and below Card Reports as per HPI Resp Reports as per HPI GI Reports as per HPI and Reports no additional complaints Reports as per HPI Physical Exam Vital Signs: Last Vital Signs BP 132/86 04/24/25 08:10 BMI result Body Mass Index 27.8 Const General: cooperative, healthy appearing and comfortable Chest Chest palpation & inspection: normal inspection of the chest and normal palpation of entire chest wall Breast/axilla inspection: normal inspection of the breasts and normal inspection of the axillae Breast/axilla palpation: normal palpation of the breasts, normal palpation of the axillae and no axillary lymphadenopathy Resp Effort & Inspection: normal respiratory effort Auscultation: clear to auscultation bilaterally Percussion: percussion normal Cardio Palpation: normal PMI Rate: regular rate Rhythm: regular rhythm Heart sounds: no murmurs and no rubs Peripheral pulses: Peripheral pulses 2+ throughout GI Inspection: Yes normal to inspection Palpation (GI): Soft to palpation, nontender, no guarding, not rigid and No hepatosplenomegaly present Percussion: Yes normal to percussion Auscultation: normal bowel sounds Rectal Exam - Female: deferred General: Yes bladder normal to palpation External Female Exam: No lesion Speculum Exam - Vagina: normal appearance of the vagina, normal palpation, normal vaginal discharge and not erythematous Speculum Exam - Cervix: normal appearance of the cervix and normal palpation Bimanual exam- vagina & uterus: normal bimanual exam, normal palpation, uterine size normal, bladder normal to palpation, consistency normal and normal palpation Bimanual Exam- Adnexa, other: normal adnexae, no masses and no tenderness Assessment & Plan Assessment & Plan (1) Abnormal uterine bleeding (AUB): Comment: On control pills Borderline hypertension Code(s): N93.9 - Abnormal uterine and vaginal bleeding, unspecified Category: Medical Plan: Co testing done, GC and chlamydia taken CBC, TSH, HCG, 17 hydroxyprogesterone, testosterone total and free and pelvic ultrasound ordered. Discussed with the patient the different causes of abnormal bleeding including thyroid disorders, uterine and ovarian pathology, endometrial hyperplasia, carcinoma and other potential causes. Discussed with the patient the work up including CBC (to r/o anemia), TSH, 17 hydroxyprogesterone, testosterone total and free pelvic Ultrasound, endometrial biopsy to r/o endometrial pathology. All questions answered and the patient verbalized understanding. Instructed the patient to schedule an appointment for an endometrial biopsy in 2 weeks. Orders: Orders Complete Blood Count no Diff Today N93.9 - Abnormal uterine and vaginal bleeding, unspecified TSH reflex Free T4 Today N93.9 - Abnormal uterine and vaginal bleeding, unspecified Prolactin Today N93.9 - Abnormal uterine and vaginal bleeding, unspecified HCG Quantitative Today N93.9 - Abnormal uterine and vaginal bleeding, unspecified US pelvic and transvaginal Today N93.9 - Abnormal uterine and vaginal bleeding, unspecified Testosterone, Free/Total Today L68.0 - Hirsutism 17 Hydroxyprogesterone Today L68.0 - Hirsutism Coding Level of Care Code New Pt Level 3 (79933) Diagnoses Abnormal uterine bleeding (AUB) N93.9
== END 2025-04-24 08:46 | disposition home or self-care (01) ==
PROVIDERS: PCP Internal Medicine; Visit Provider Obstetrics & Gynecology
DX: N93.9 Abnormal uterine and vaginal bleeding, unspecified (principal)
CPT/HCPCS: 99203

== ENCOUNTER 2025-04-24 08:07 | Outpatient (REF) | payer OTHER, SELFPAY ==
[2025-04-24 15:25] LABS: CT PCR NOT DETECTED (Not Detect.); NG PCR NOT DETECTED (Not Detect.)
== END 2025-04-24 08:08 | disposition home or self-care (01) ==
LOC: HO.LNP 08:07
PROVIDERS: PCP Internal Medicine; Visit Provider Obstetrics & Gynecology
DX: N93.9 Abnormal uterine and vaginal bleeding, unspecified (principal); L68.0 Hirsutism; Z20.2 Contact with and (suspected) exposure to infections with a predominantly sexual mode of transmission
CPT/HCPCS: 87491; 87591; 87626; 88175

== ENCOUNTER 2025-05-07 11:48 | Outpatient (AMB) | payer OTHER, SELFPAY ==
--- NOTE | 2025-05-07 11:58 | MHC.WMTHER ---
Intake Intake Visit Reasons: OV PO LSG 07/12/23 Allergies No Known Allergies Allergy (Verified 04/24/25 08:11) PFSH Medical History Morbid obesity Abdominal pain Abnormal bowel habits Atopic dermatitis Anxiety Depression Body piercing Family history of complication of anesthesia Atopic dermatitis HTN (hypertension) Sleep apnea Surgical History Hx of laparoscopic partial gastrectomy Hx of section Hx of wisdom tooth extraction Family History Mother Hypertension Bipolar 1 disorder Heart murmur Father Bipolar 1 disorder Hypertension Lung cancer Alcohol abuse Son No problems noted. Daughter No problems noted. 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 She notes that work-related stress has improved. The patient describes daily anxiety and continues her current psychiatric medications, but is not attending regular counseling since her therapist [place] out of state. She expresses a desire to increase variety in her meal structure. Objective: The patient presents for an in-person post-operative visit. Functioning and current stressors were reviewed. Psychoeducation was provided regarding the cycle of anxiety, avoidance, and obsessive-compulsive symptoms. CBT-based interventions were utilized, including cognitive restructuring to challenge anxious thoughts, behavioral activation to encourage engagement in enjoyable and meaningful activities, and development of coping strategies such as relaxation techniques and problem-solving skills. The patient was guided in identifying triggers and early warning signs of anxiety, and a plan was developed for managing symptoms using grounding and mindfulness exercises. Meal planning and the importance of nutritional variety were discussed, and the patient was advised to consult with a pre sales systems engineer given she is two years post-op. Resources for a new prescriber and a neurodevelopmental field artillery operations specialist for her daughter were provided. Assessment/Response: Mental status: Alert and oriented ?4. Appearance appropriate. Mood mildly anxious but affect congruent. Thought process logical and coherent. No evidence of psychosis. Insight and judgment intact. Risk reported/identified: none Assessment & Plan Assessment & Plan (1) Generalized anxiety disorder: Code(s): F41.1 - Generalized anxiety disorder (2) History of agoraphobia: Code(s): Z86.59 - Personal history of other mental and behavioral disorders (3) Panic anxiety syndrome: Code(s): F41.0 - Panic disorder [episodic paroxysmal anxiety] Plan: In remission. (4) Status post bariatric surgery: Code(s): Z98.84 - Bariatric surgery status Plan Follow up in 3 months. Next appointment scheduled for 08/20/2024 at 12:00 PM. Coding [place] [address] Psytx >53 mins Patient Type Established Diagnoses Generalized anxiety disorder F41.1 History of agoraphobia Z86.59 Panic anxiety syndrome F41.0 Status post bariatric surgery Z98.84 Time Spent (min) 60
== END 2025-05-07 13:02 | disposition home or self-care (01) ==
LOC: HO.HBST 11:49
PROVIDERS: PCP Internal Medicine; Visit Provider Counselor Mental Health
DX: F41.1 Generalized anxiety disorder (principal); Z86.59 Personal history of other mental and behavioral disorders; F41.0 Panic disorder [episodic paroxysmal anxiety]; Z98.84 Bariatric surgery status
CPT/HCPCS: 90837

== ENCOUNTER 2025-05-13 07:08 | Outpatient (REF) | payer OTHER, SELFPAY ==
--- NOTE | ~2025-05-13 | US_ITS ---
EXAMINATION: US PELVIS CLINICAL INFORMATION: Abnormal uterine bleeding COMPARISON: None available. TECHNIQUE: Ultrasound of the pelvis is performed using both transabdominal and transvaginal transducers along with Doppler. Transvaginal imaging is performed due to inadequate visualization transabdominally. FINDINGS: Uterus: The uterus is anteverted and measures 7.4 x 3.2 x 3.7 cm. The double wall endometrial thickness is 2 mm. The uterus is smooth in contour and has normal myometrial echogenicity. No visible fibroid. Adnexa: Both ovaries are visualized. There is normal color flow to the adnexa. There is no ovarian torsion. There is no pelvic ascites or fluid collection. Right ovary measures 2.6 x 2.3 x 3.0 cm. Left ovary measures 2.7 x 2.2 x 2.0 cm. US/US pelvic and transvaginal IMPRESSION: Unremarkable pelvic ultrasound. Electronically signed by: Mike Rapp MD 05/13/2025 10:55 AM [facility]
[2025-05-13 07:52] LABS: Hematocrit 38.2 % (37.0-47.0); Hemoglobin 13.0 g/dl (12.0-16.0); Mean Corpuscular HGB Conc 34.0 g/dl (31.0-35.0); Mean Corpuscular Hemoglobin 30.5 pg (27.0-33.0); Mean Corpuscular Volume 89.7 fL (80.0-98.0); NRBC Abs Auto 0.000 X10*3/uL (0.0-0.012); NRBC Pct Auto 0.0 /100WBC (0.0-0.2); Platelet Count 309 X10*3/uL (160-400); Red Blood Count 4.26 X10*6/uL (4.20-5.50); White Blood Count 6.0 X10*3/uL (4.8-10.8)
== END 2025-05-13 07:09 | disposition home or self-care (01) ==
LOC: HO.US 07:08
PROVIDERS: PCP Physician Assistant Medical; Visit Provider Obstetrics & Gynecology
DX: L68.0 Hirsutism (principal); N93.9 Abnormal uterine and vaginal bleeding, unspecified; Z13.29 Encounter for screening for other suspected endocrine disorder
CPT/HCPCS: 36415; 76830; 76856; 83498; 84146; 84402; 84403; 84443; 84702; 85027

== ENCOUNTER → 2025-05-13 09:53 | Outpatient (BNV) | payer OTHER, SELFPAY | PROVIDERS: PCP Physician Assistant Medical; Visit Provider Radiology Diagnostic Radiology | DX: N93.9 Abnormal uterine and vaginal bleeding, unspecified (principal) | CPT/HCPCS: 76830; 76856 ==